=== PATIENT | male | born 1965 | race Caucasian/White ===

== ENCOUNTER 2017-06-13 14:52 | Emergency (ER) | payer OTHER ==
[2017-06-13 15:00] VITALS: BP 125/81; PULSE 113; TEMP 98.9; BMI 34.7
--- NOTE | 2017-06-13 15:00 | PDOC ---
Rapid Medical Evaluation Time Seen by Provider: 06/13/17 14:57 Medical Evaluation: Allergies Allergy/AdvReac Type Severity Reaction Status Date / Time No Known Allergies Allergy Verified 12/01/13 16:24 06/13/17 14:57 I have performed a brief in-person evaluation of this patient. The patient presents with a chief complaint of: went to PMD for cold/cough/ weakness, sent to ED by PMD Keely for glucose 400s Pertinent physical exam findings: well appearing, tachy 113 I have ordered the following: labs, ekg The patient will proceed to the ED for further evaluation. Discharge Disposition - Diagnosis Elevated blood sugar - Referrals Referrals: Levi Chapman MD [Primary Care Provider] - - Patient Instructions - Post Discharge Activity
[2017-06-13 15:37] LABS: BASO % 0.5 % (0-2.0); EOS % 0.1 % (0-4.5); HEMATOCRIT 46.8 % (35.4-49); HEMOGLOBIN 15.8 GM/dL (11.7-16.9); LYMPH % 22.8 % (8-40); MCH 29.5 pg (25.7-33.7); MCHC 33.7 g/dl (32.0-35.9); MEAN CELL VOLUME 87.4 fl (80-96); MEAN PLT VOLUME 8.4 fl (7.5-11.1); MONO % 10.7 % (3.8-10.2); NEUT % 65.9 % (42.8-82.8); PLATELET COUNT 207 K/MM3 (134-434); RBC 5.35 M/mm3 (4.00-5.60); RDW 13.1 % (11.9-15.9); WHITE BLOOD COUNT 6.4 K/mm3 (4.0-10.0)
[2017-06-13 15:54] LABS: ALBUMIN 3.4 g/dl (3.4-5.0); ANION GAP 8 (8-16); BILIRUBIN,TOTAL 0.4 mg/dL (0.2-1.0); BLOOD UREA NITROGEN 19 mg/dL (7-18); CALCIUM 8.8 mg/dL (8.5-10.1); CHLORIDE 100 mmol/L (98-107); CO2 28 mmol/L (21-32); CREATININE 1.1 mg/dL (0.7-1.3); POTASSIUM 4.6 mmol/L (3.5-5.1); SGOT/AST 13 U/L (15-37); SGPT/ALT 22 U/L (12-78); SODIUM 136 mmol/L (136-145); TOT PROT 6.8 g/dl (6.4-8.2)
[2017-06-13 15:55] LABS: ALK PHOS 119 U/L (45-117)
[2017-06-13 15:57] LABS: GLUCOSE,RANDOM 392 mg/dL (74-106)
[2017-06-13] MEDS ORDERED: SODIUM CHLORIDE 0.9% 1000 ML INFUS.BAG IV ONE ×2 (16:06→16:07)
[2017-06-13] MEDS ORDERED: ALBUTEROL SO4 2.5/IPRATROPIUM 0.5 INH SOL 3 ML VIAL.NEB. NEB ONE (16:06)
--- NOTE | 2017-06-13 16:10 | PDOC ---
History of Present Illness - General History Source: Patient Exam Limitations: No Limitations - History of Present Illness Initial Comments: 06/13/17 19:03 Patient is a 51 year old with a significant past medical history of Diabetes, who presents to the ED with complaints of high blood sugar. Patient reports being non compliant with medication due to unemployment and lack of medical insurance. He reports recently going back on Metformin and Glipizide medication for diabetes. Patient state he went to see his PCP this afternoon and was referred to the ED due to having blood sugar levels of 400. He reports experiencing intermittent productive cough, runny nose. Patient reports experiencing general weakness as well as SOB. Denies chest pain. Denies nausea, vomiting. Denies fevers, chills. Denies contact with sick individuals, out of state travelling. Denies any other symptoms. Allergies: None Social history: No smoking. No alcohol. No illicit drugs. Surgical history: Right torn rotator cuff surgery. Broken elbow. PMD: Dr. Chapman <Yovani Knox - Last Filed: 06/13/17 19:03> <Hue Newman - Last Filed: 06/13/17 19:12> - General Chief Complaint: Blood Sugar Problem Stated Complaint: SENT BY PCP/HIGH BLOOD SUGAR Time Seen by Provider: 06/13/17 14:57 Past History <Yovani Knox - Last Filed: 06/13/17 19:03> - Past Medical History COPD: No Diabetes: Yes - Suicide/Smoking/Psychosocial Hx Smoking Status: No Smoking History: Never smoked Number of Cigarettes Smoked Daily: 0 Hx Alcohol Use: No Drug/Substance Use Hx: No Substance Use Type: None <Hue Newman - Last Filed: 06/13/17 19:12> - Past Medical History Allergies/Adverse Reactions: Allergies Allergy/AdvReac Type Severity Reaction Status Date / Time No Known Allergies Allergy Verified 06/13/17 15:00 Home Medications: Ambulatory Orders Metformin HCl [Glucophage] 1,000 mg PO BID 12/01/13 Albuterol Sulfate Inhaler - [Ventolin HFA Inhaler -] 1 - 2 inh PO Q4H PRN #1 inhaler 06/13/17 Glipizide 10 mg PO BID 06/13/17 Glipizide 10 mg PO BID #28 tablet 06/13/17 Inhaler, Assist Devices [Space Chamber Plus] 1 each MC QID PRN #1 spacer Metformin HCl [Glucophage] 1,000 mg PO BID #14 tablet 06/13/17 Review of Systems - Review of Systems Able to Perform ROS?: Yes Comments:: 06/13/17 19:03 GENERAL/CONSTITUTIONAL: No fever or chills. No weakness. HEAD, EYES, EARS, NOSE AND THROAT: +Runny nose. No change in vision. No ear pain or discharge. No sore throat. GASTROINTESTINAL: No nausea, vomiting, diarrhea or constipation. GENITOURINARY: No dysuria, frequency, or change in urination. CARDIOVASCULAR: +SOB No chest pain RESPIRATORY: +Cough No wheezing, or hemoptysis. MUSCULOSKELETAL: No joint or muscle swelling or pain. No neck or back pain. SKIN: No rash NEUROLOGIC: No headache, vertigo, loss of consciousness, or change in strength/ sensation. ENDOCRINE: No increased thirst. No abnormal weight change. HEMATOLOGIC/LYMPHATIC: No anemia, easy bleeding, or history of blood clots. ALLERGIC/IMMUNOLOGIC: No hives or skin allergy. All Other Systems: Reviewed and Negative <Yovani Knox - Last Filed: 06/13/17 19:03> *Physical Exam - Vital Signs Last Vital Signs Temp Pulse Resp BP Pulse Ox 98.9 F 113 H 20 125/81 97 06/13/17 14:57 06/13/17 14:57 06/13/17 14:57 06/13/17 14:57 06/13/17 14:57 - Physical Exam Comments: 06/13/17 19:03 GENERAL: Awake, alert, and fully oriented, in no acute distress HEAD: No signs of trauma EYES: PERRLA, EOMI, sclera anicteric, conjunctiva clear ENT: +Nares boggy. Auricles normal inspection, hearing grossly normal, nares patent, oropharynx clear without exudates. Moist mucosa NECK: Normal ROM, supple, no lymphadenopathy, JVD, or masses LUNGS: +Bronchial spastic cough. Breath sounds equal, clear to auscultation bilaterally. No wheezes, and no crackles HEART: +Tachycardic. Regular rate and rhythm, normal S1 and S2, no murmurs, rubs or gallops ABDOMEN: Soft, nontender, normoactive bowel sounds. No guarding, no rebound. No masses EXTREMITIES: Normal range of motion, no edema. No clubbing or cyanosis. No cords, erythema, or tenderness NEUROLOGICAL: Cranial nerves II through XII grossly intact. Normal speech, normal gait SKIN: Warm, Dry, normal turgor, no rashes or lesions noted. <Yovani Knox - Last Filed: 06/13/17 19:03> - Vital Signs Last Vital Signs Temp Pulse Resp BP Pulse Ox 98.9 F 113 H 20 125/81 97 06/13/17 14:57 06/13/17 14:57 06/13/17 14:57 06/13/17 14:57 06/13/17 14:57 <Hue Newman - Last Filed: 06/13/17 19:12> Heart Score/ECG Review - ECG Intrepretation Comment:: 06/13/17 16:39 sinus tach at 105, nl axis, nl interval, no acute st/t wave findings <Hue Newman - Last Filed: 06/13/17 19:12> ED Treatment Course - LABORATORY CBC & Chemistry Diagram: 06/13/17 15:10 06/13/17 15:10 - ADDITIONAL ORDERS Additional order review: Laboratory Results 06/13/17 06/13/17 16:53 15:10 Sodium 136 Potassium 4.6 Chloride 100 Carbon Dioxide 28 Anion Gap 8 BUN 19 H Creatinine 1.1 Creat Clearance w eGFR > 60 Random Glucose 392 H* Calcium 8.8 Total Bilirubin 0.4 AST 13 L ALT 22 Alkaline Phosphatase 119 H Total Protein 6.8 Albumin 3.4 Urine Color Ltyellow Urine Appearance Clear Urine pH 5.0 Ur Specific [place] 1.038 H Urine Protein 1+ H Urine Glucose (UA) 3+ H Urine Ketones Trace H Urine Blood 1+ H Urine Nitrite Negative Urine Bilirubin Negative Urine Urobilinogen Negative Ur Leukocyte Esterase Negative Urine WBC (Auto) <1 Urine RBC (Auto) 1 Urine Mucus Rare 06/13/17 15:10 RBC 5.35 MCV 87.4 MCHC 33.7 RDW 13.1 MPV 8.4 Neutrophils % 65.9 Lymphocytes % 22.8 Monocytes % 10.7 H Eosinophils % 0.1 Basophils % 0.5 - Medications Given in the ED: ED Medications Discontinued Medications Generic Name Dose Route Start Last Admin Trade Name Freq PRN Reason Stop Dose Admin Albuterol/Ipratropium 1 amp 06/13/17 16:06 06/13/17 17:19 Duoneb - NEB 06/13/17 16:07 1 amp ONCE ONE Administration Sodium Chloride 1,000 ml 06/13/17 16:06 06/13/17 16:36 Normal Saline - IV 06/13/17 16:07 1,000 ml ONCE ONE Administration Sodium Chloride 1,000 ml 06/13/17 16:07 06/13/17 16:36 Normal Saline - IV 06/13/17 16:08 1,000 ml ONCE ONE Administration <Yovani Knox - Last Filed: 06/13/17 19:03> - LABORATORY CBC & Chemistry Diagram: 06/13/17 15:10 06/13/17 15:10 - ADDITIONAL ORDERS Additional order review: Laboratory Results 06/13/17 15:10 Sodium 136 Potassium 4.6 Chloride 100 Carbon Dioxide 28 Anion Gap 8 BUN 19 H Creatinine 1.1 Creat Clearance w eGFR > 60 Random Glucose 392 H* Calcium 8.8 Total Bilirubin 0.4 AST 13 L ALT 22 Alkaline Phosphatase 119 H Total Protein 6.8 Albumin 3.4 <Hue Newman - Last Filed: 06/13/17 19:12> Medical Decision Making - Medical Decision Making 06/13/17 16:07 a/p: 51yo male with cough/rhinorrhea and elevated bg -noncompliant with meds x 6 months -nontoxic in appearance -suspect viral URI with bronchospasm -will obtain labs, ekg, cxr -ivf hydration -has referral for endocrinology as outpt -now taking metformin and glipizide 06/13/17 16:08 glucose 392 - will give ivf hydration, nongapped 06/13/17 19:05 pt feeling much better no longer feeling weak lungs cta breathing more easily pt glucose now in 200s will d/c to home with albuterol pump and metformin/glipizide has appt with pmd next week and is arranging to see endocrinology as outpt discussed dietary changes to help control glucose <Hue Newman - Last Filed: 06/13/17 19:12> *DC/Admit/Observation/Transfer - Attestations Scribe Attestion: 06/13/17 19:04 Documentation prepared by Yovani Knox, acting as ophthalmic medical technician for Hue Newman DO, MD/. <Yovani Knox - Last Filed: 06/13/17 19:03> - Discharge Dispostion Admit: No - Attestations Physician Attestion: 06/13/17 19:11 I, Dr. Hue Newman DO, attest that this document has been prepared under my direction and personally reviewed by me in its entirety. I further attest, that it accurately reflects all work, treatment, procedures and medical decision -making performed by me. <Hue Newman - Last Filed: 06/13/17 19:12> Diagnosis at time of Disposition: Elevated blood sugar - Discharge Dispostion Disposition: HOME Condition at time of disposition: Stable - Prescriptions Prescriptions: Albuterol Sulfate Inhaler - [Ventolin HFA Inhaler -] 1 - 2 inh PO Q4H PRN #1 inhaler PRN Reason: Wheezing Glipizide 10 mg PO BID #28 tablet Inhaler, Assist Devices [Space Chamber Plus] 1 each MC QID PRN #1 spacer PRN Reason: Wheezing Metformin HCl [Glucophage] 1,000 mg PO BID #14 tablet - Referrals Referrals: Levi Chapman MD [Primary Care Provider] - Chance Anaya MD [Staff Physician] - - Patient Instructions Printed Discharge Instructions: DI for Hyperglycemia -- Adult Additional Instructions: Please drink plenty of fluids Please keep your appointment with your PMD for next week Please watch your sugar intake Please check your glucose at home with the glucometer Please take all of your meds as prescribed Please return to the ED with any further complaints. - Post Discharge Activity
[2017-06-13 17:28] LABS: URINE APPEARANCE CLEAR; URINE BILIRUBIN NEGATIVE (NEGATIVE); URINE BLOOD 1+ (NEGATIVE); URINE COLOR LTYELLOW; URINE GLUCOSE (UA) 3+ (NEGATIVE); URINE KETONE TRACE (NEGATIVE); URINE LEUK ESTERASE NEGATIVE (NEGATIVE); URINE NITRITE NEGATIVE (NEGATIVE); URINE UROBILINOGEN NEGATIVE mg/dL (0.2-1.0)
[2017-06-13 17:31] LABS: URINE PROTEIN 1+ (NEGATIVE)
[2017-06-13 18:04] LABS: URINE MUCUS RARE
--- NOTE | 2017-06-14 09:11 | EKG ---
Test Reason : Blood Pressure : / mmHG Vent. Rate : 105 BPM Atrial Rate : 105 BPM P-R Int : 164 ms QRS Dur : 082 ms QT Int : 316 ms P-R-T Axes : 062 017 040 degrees QTc Int : 417 ms SINUS TACHYCARDIA OTHERWISE NORMAL ECG NO PREVIOUS ECGS AVAILABLE Confirmed by BARBARA DE DIOS MD ([id number]) on 06/14/2017 9:10:48 AM Referred By: Confirmed By:BARBARA DE DIOS MD
== END 2017-06-13 19:22 | disposition home or self-care (01) ==
LOC: JER 14:52
PROC: 3E0337Z Introduction of Electrolytic and Water Balance Substance into Peripheral Vein, Percutaneous Approach (ICD-10-PCS; principal; 2017-06-13)
PROC: 3E0F7GC Introduction of Other Therapeutic Substance into Respiratory Tract, Via Natural or Artificial Opening (ICD-10-PCS; 2017-06-13)
DX: R73.9 Hyperglycemia, unspecified (principal)
CPT/HCPCS: 36415; 71046-TC; 80053; 81003; 81015; 82962; 85025; 93005; 93010; 99283-25

== ENCOUNTER 2020-03-01 10:48 | Inpatient (IN) | payer OTHER ==
--- NOTE | 2020-03-01 11:13 | PDOC ---
History of Present Illness - General Chief Complaint: Wound Stated Complaint: WOUND Time Seen by Provider: 03/01/20 11:13 - History of Present Illness Initial Comments: 54 YOM h/o diabetes presents with infected toe. 3rd toe on left foot, initially red on , thought stubbed toe, redness expanded beyond toe in following days, saw senior network security engineer who gave topical cream, sunday became black and numb to touch, came into today given acute change. Denies pain, confirms some chills over past week. Denies fever, night sweats, CP, SOB, N/V/D. Constitutional: No Weight Change, No Fever, No Chills, No Night Sweats, No Fatigue, No Malaise ENT/Mouth: No Hearing Changes, No Ear Pain, No Nasal Congestion, No Sinus Pain, No Hoarseness, No sore throat, No Rhinorrhea, No Swallowing Difficulty Eyes: No Eye Pain, No Swelling, No Redness, No Foreign Body, No Discharge, No Vision Changes Cardiovascular: No Chest Pain, No SOB, No PND, No Dyspnea on Exertion, No Orthopnea, No Claudication, No Edema, No Palpitations Respiratory: No Cough, No Sputum, No Wheezing, No Smoke Exposure, No Dyspnea Gastrointestinal: No Nausea, No Vomiting, No Diarrhea, No Constipation, No Pain, No Heartburn, No Anorexia, No Dysphagia, No Hematochezia, No Melena, No Flatulence, No Jaundice Genitourinary: No Dysmenorrhea, No DUB, No Dyspareunia, No Dysuria, No Urinary Frequency, No Hematuria, No Urinary Incontinence, No Urgency, No Flank Pain, No Urinary Flow Changes, No Hesitancy Musculoskeletal: No Arthralgias, No Myalgias, No Joint Swelling, No Joint Stiffness, No Back Pain, No Neck Pain, No Injury History Skin: No Skin Lesions, No Pruritis, No Hair Changes, No Breast/Skin Changes, No Nipple Discharge Neuro: No Weakness, No Numbness, No Paresthesias, No Loss of Consciousness, No Syncope, No Dizziness, No Headache, No Coordination Changes, No Recent Falls Psych: No Anxiety/Panic, No Depression, No Insomnia, No Personality Changes, No Delusions, No Rumination, No SI/HI/AH/VH, No Social Issues, No Memory Changes, No Violence/Abuse Hx., No Eating Concerns Heme/Lymph: No Bruising, No Bleeding, No Transfusions History, No Lympha denopathy Endocrine: No Polyuria, No Polydipsia, No Temperature Intolerance Past History - Medical History Allergies/Adverse Reactions: Allergies Allergy/AdvReac Type Severity Reaction Status Date / Time No Known Allergies Allergy Verified 03/01/20 11:01 Home Medications: Ambulatory Orders metFORMIN HCL [Glucophage] 1,000 mg PO BID 12/01/13 Glipizide 5 mg PO BID 03/02/20 COPD: No Diabetes: Yes Other medical history: neuropathy - Immunization History Immunization Up to Date: No - Psycho-Social/Smoking History Smoking Status: No Smoking History: Never smoked Number of Cigarettes Smoked Daily: 0 - Substance Abuse Hx (Audit-C & DAST Scrn) How often the patient has a drink containing alcohol: Never Score: In Men: 4 or > Positive; In Women: 3 or > Positive: 0 Screen Result (Pos requires Nsg. Audit-10AR): Negative In the last yr the pt used illegal drug/Rx for NonMed reason: No Score: Yes response is considered Positive: 0 Screen Result (Positive result requires Nsg. DAST-10): Negative *Physical Exam - Vital Signs Last Vital Signs Temp Pulse Resp BP Pulse Ox 98.1 F 116 H 20 107/68 100 03/01/20 11:01 03/01/20 11:01 03/01/20 11:01 03/01/20 11:01 03/01/20 11:01 - Physical Exam General Appearance: Yes: Nourished, Appropriately Dressed HEENT: positive: EOMI, SANDRA, Normal ENT Inspection, Normal Voice, Symmetrical, TMs Normal, Pharynx Normal Neck: positive: Trachea midline, Normal Thyroid Respiratory/Chest: positive: Lungs Clear, Normal Breath Sounds Cardiovascular: positive: Regular Rhythm, Regular Rate, S1, S2 Gastrointestinal/Abdominal: positive: Normal Bowel Sounds, Flat, Soft Extremity: positive: Other (3rd digit on left foot is grossly black in color with surrounding erythema extending from base of 3rd toe to dorsum of left foot and anterior ankle/lower leg, no sensation in toe) ED Treatment Course - LABORATORY CBC & Chemistry Diagram: 03/03/20 07:20 03/03/20 07:20 Medical Decision Making - Medical Decision Making 54 YOM h/o diabetes with gangrenous toe on left foot - tachy to 116, vitals otherwise normal - exam shows black 3rd digit on left foot with erythema extending from base of toe up through dorsum of left foot to lower left leg, toe has no sensation - will do labs, imaging, and abx, consult vascular surgery and admit for gangrene + cellulitis with possible sepsis reassess: - labs remarkable for WBC 11.8 - spoke with dr chavez who suggested CTA aorta with BL LE runoff - PT admitted 03/01/20 12:42 03/01/20 13:12 03/03/20 17:48 Discharge - Discharge Information Problems reviewed: Yes Clinical Impression/Diagnosis: Gangrene - Follow up/Referral - Patient Discharge Instructions - Post Discharge Activity
[2020-03-01] MEDS ORDERED: SODIUM CHLORIDE 1,000 ML IV SCH ×2 (11:15→13:15)
[2020-03-01] MEDS ORDERED: MEROPENEM 1 GM in DEXTROSE 5%-WATER 100 ML IVPB ONE (11:29)
[2020-03-01] MEDS ORDERED: CLINDAMYCIN 900 MG PREMIX IVPB 900 MG/50 ML BAG IVPB ONE ×2 (11:30→11:54)
--- NOTE | 2020-03-01 11:43 | PDOC ---
Documentation entered by Salima Morris SCRIBE, acting as scribe for Nader Rausch MD. Nader Rausch MD: This documentation has been prepared by the Alexandra nguyen Xhesika, SCRIBE, under my direction and personally reviewed by me in its entirety. I confirm that the documentation accurately reflects all work, treatment, procedures, and medical decision making performed by me. Attending Attestation - Resident Resident Name: Warren Ferraro - ED Attending Attestation I have performed the following: I have examined & evaluated the patient, The case was reviewed & discussed with the resident, I agree w/resident's findings & plan, Exceptions are as noted - HPI HPI: 03/01/20 11:15 Patient is a 54 year old with a significant past medical history of Diabetes and Neuropathy who presents to the ED with L foot third digit wound. Pt states he was seen by his campaign advisor on Sunday for L foot third digit lateral ulcer a/w erythema and was started on cipro/clindamycin. Pt states his symptoms have progressively worsened, went in for a follow up today for acute changes, and was advised to come to the ED for further evaluation. The patient denies chest pain, shortness of breath, headache and dizziness. Denies fever, chills, cough, nausea, vomiting, diarrhea and constipation. Denies dysuria, frequency, urgency and hematuria. Allergies: NKDA Surgical history: Right torn rotator cuff surgery. - Physicial Exam PE: 03/01/20 11:46 See resident exam - Medical Decision Making 03/01/20 11:46 54 M with infected toe ulcer. - Labs - C/s Shakir Cardoso Stepanian - Admit Discharge - Discharge Information Problems reviewed: Yes Clinical Impression/Diagnosis: Gangrene Condition: Improved Disposition: HOME - Follow up/Referral - Patient Discharge Instructions - Post Discharge Activity
[2020-03-01] MEDS ORDERED: MEROPENEM 1 GM VIAL (RESTRICTED TO ID) IVPB ONE (11:53)
[2020-03-01 11:55] LABS: BASO % 0.6 % (0-2.0); EOS % 0.3 % (0-4.5); HEMATOCRIT 38.5 % (35.4-49); HEMOGLOBIN 12.7 GM/dL (11.7-16.9); LYMPH % 9.8 % (8-40); MCH 28.6 pg (25.7-33.7); MEAN CELL VOLUME 86.7 fl (80-96); MEAN PLT VOLUME 7.1 fl (7.5-11.1); MONO % 9.4 % (3.8-10.2); NEUT % 79.9 % (42.8-82.8); PLATELET COUNT 303 K/MM3 (134-434); RBC 4.44 M/mm3 (4.00-5.60); RDW 12.8 % (11.9-15.9); WHITE BLOOD COUNT 11.8 K/mm3 (4.0-10.0)
[2020-03-01 12:08] LABS: INR 1.18 (0.83-1.09); PROTHROMBIN TIME (PATIENT) 13.9 SEC (9.7-13.0)
--- NOTE | 2020-03-01 12:12 | CONSULT ---
Consult Consult Specialty:: Podiatry Reason for Consultation:: Gangarene 3rd toe left with ascending cellulitis - History of Present Illness History of Present Illness: States had an ingrown nail 3 weeks ago. Got worse went to [facility] Sunday put on po abx. Returned today and had gangarene and was called by Dr. Abarca to refer the patient to me. - Alcohol/Substance Use Hx Alcohol Use: No - Smoking History Smoking history: Never smoked Aproximately how many cigarettes per day: 0 Home Medications - Allergies Allergies/Adverse Reactions: Allergies Allergy/AdvReac Type Severity Reaction Status Date / Time No Known Allergies Allergy Verified 03/01/20 11:01 - Home Medications Home Medications: Ambulatory Orders metFORMIN HCL [Glucophage] 1,000 mg PO BID 12/01/13 Glipizide 10 mg PO BID #28 tablet 06/13/17 Physical Exam Vital Signs: Vital Signs Temperature 98.1 F 03/01/20 11:01 Pulse Rate 116 H 03/01/20 11:01 Respiratory Rate 20 03/01/20 11:01 Blood Pressure 107/68 03/01/20 11:01 O2 Sat by Pulse Oximetry (%) 100 03/01/20 11:01 Wound/Incision: Yes: Other (+gangarene 3rd toe left, +cellulitis to midfoot,) Labs: CBC, BMP 03/01/20 11:45 Imaging - Results X-ray: Image Reviewed Assessment/Plan gangarene cellulitis Vascular and ID consults ordered. Discussed with pt that he will be most likely need an amputation of 3rd toe left once cellulitis under control. Will follow. MRI ordered. Rest as per team. Maximize for OR.
[2020-03-01 12:32] LABS: ALBUMIN 2.3 g/dl (3.4-5.0); BILIRUBIN,TOTAL 0.7 mg/dL (0.2-1); BLOOD UREA NITROGEN 16.3 mg/dL (7-18); CALCIUM 8.2 mg/dL (8.5-10.1); CREATININE 1.2 mg/dL (0.55-1.3); POTASSIUM 4.4 mmol/L (3.5-5.1); TOT PROT 5.6 g/dl (6.4-8.2)
--- NOTE | 2020-03-01 12:40 | CON.ID ---
Consult Consult Specialty:: infectious diseases Referred by:: hospitalist Reason for Consultation:: cellulitis of the foot and gangrene of the toe - History of Present Illness Chief Complaint: black color of the toe and swelling and pain in the legs History of Present Illness: 54 y/o with a history of DM who presents from a ash collector office for third toe pain. Patients toe was seen to be red and outpatient he was given ciprofloxacin and clindamyicin. Patient notes his toe was red on Sunday and he had some pain, the pain eventually went away and then someone at his hose noted it had changed color. he went to the ash collector who sent him here. Patient states the toe is now numb. No other complaints, denies fever, chills, nausea, vomiting, chest pain or shortness of breath. says now he feels better - History Source History Provided By: Patient Limitations to Obtaining History: No Limitations - Alcohol/Substance Use Hx Alcohol Use: No - Smoking History Smoking history: Never smoked Aproximately how many cigarettes per day: 0 Home Medications - Allergies Allergies/Adverse Reactions: Allergies Allergy/AdvReac Type Severity Reaction Status Date / Time No Known Allergies Allergy Verified 03/01/20 11:01 - Home Medications Home Medications: Ambulatory Orders metFORMIN HCL [Glucophage] 1,000 mg PO BID 12/01/13 Glipizide 5 mg PO BID 03/02/20 Review of Systems - Review of Systems Constitutional: reports: No Symptoms Eyes: reports: No Symptoms HENT: reports: No Symptoms Neck: reports: No Symptoms Cardiovascular: reports: No Symptoms Respiratory: reports: No Symptoms Gastrointestinal: reports: No Symptoms, Vomiting Blood Musculoskeletal: reports: Other Integumentary: reports: Erythema, Other (black color of the toe) Neurological: reports: No Symptoms Endocrine: reports: No Symptoms Hematology/Lymphatic: reports: No Symptoms Psychiatric: reports: No Symptoms Physical Exam Vital Signs: Vital Signs Temperature 98.1 F 03/01/20 11:01 Pulse Rate 116 H 03/01/20 11:01 Respiratory Rate 03/01/20 11:01 Blood Pressure 107/68 03/01/20 11:01 O2 Sat by Pulse Oximetry (%) 100 03/01/20 11:01 Constitutional: Yes: Well Nourished, Calm, Mild Distress Eyes: Yes: Conjunctiva Clear HENT: Yes: Atraumatic, Normocephalic Neck: Yes: Supple, Trachea Midline Cardiovascular: Yes: Regular Rate and Rhythm Respiratory: Yes: Regular, CTA Bilaterally Gastrointestinal: Yes: Normal Bowel Sounds, Soft Musculoskeletal: Yes: WNL Extremities: Yes: Erythema (of the foot), Other (gangerne of the toe) Integumentary: Yes: Erythema Wound/Incision: Yes: Other Neurological: Yes: Alert, Oriented Psychiatric: Yes: Alert, Oriented Labs: CBC, BMP 03/01/20 11:45 03/01/20 11:45 Imaging - Results Chest X-ray: Report Reviewed, Image Reviewed X-ray: Report Reviewed, Image Reviewed Assessment/Plan 54 M L foot gangrene Uncontrolled T2Dm with hyperglycemia HTN HLD Active smoker plan will start on zosyn and clinda patient has gangrene will need amputation should get mri of the foot no gas noted rest as per the team
[2020-03-01] MEDS ORDERED: ACETAMINOPHEN 325 MG TABLET (FP) PO PRN (13:14)
--- NOTE | 2020-03-01 13:30 | HP ---
CHIEF COMPLAINT: left 3rd toe pain PCP: Dr. Richey HISTORY OF PRESENT ILLNESS: Patient is a 54 y/o with a history of DM who presents from a poem writer office for third toe pain. Patients toe was seen to be red and outpatient he was given ciprofloxacin and clindamyicin. Patient notes his toe was red on Sunday and he had some pain, the pain eventually went away and then someone at his hose noted it had changed color. he went to the poem writer who sent him here. Patient states the toe is now numb. No other complaints, denies fever, chills, nausea, vomiting, chest pain or shortness of breath. ER course was notable for: (1) (2) (3) Recent Travel: PAST MEDICAL HISTORY: DM PAST SURGICAL HISTORY: R arm lac at age 7 Social History: Smoking: active Alcohol: denies Drugs: denies Allergies No Known Allergies Allergy (Verified 03/01/20 11:01) HOME MEDICATIONS: Home Medications Medication Instructions Recorded metFORMIN HCL [Glucophage] 1,000 mg PO BID 12/01/13 Glipizide 10 mg PO BID #28 tablet 06/13/17 REVIEW OF SYSTEMS CONSTITUTIONAL: Absent: fever, chills, diaphoresis, generalized weakness, malaise, loss of appetite, weight change HEENT: Absent: rhinorrhea, nasal congestion, throat pain, throat swelling, difficulty swallowing, mouth swelling, ear pain, eye pain, visual changes CARDIOVASCULAR: Absent: chest pain, syncope, palpitations, irregular heart rate, lightheadedness, peripheral edema RESPIRATORY: Absent: cough, shortness of breath, dyspnea with exertion, orthopnea, wheezing, stridor, hemoptysis GASTROINTESTINAL: Absent: abdominal pain, abdominal distension, nausea, vomiting, diarrhea, constipation, melena, hematochezia GENITOURINARY: Absent: dysuria, frequency, urgency, hesitancy, hematuria, flank pain, genital pain MUSCULOSKELETAL: toe pain Absent: myalgia, arthralgia, joint swelling, back pain, neck pain SKIN: Absent: rash, itching, pallor HEMATOLOGIC/IMMUNOLOGIC: Absent: easy bleeding, easy bruising, lymphadenopathy, frequent infections ENDOCRINE: Absent: unexplained weight gain, unexplained weight loss, heat intolerance, cold intolerance NEUROLOGIC: Absent: headache, focal weakness or paresthesias, dizziness, unsteady gait, seizure, mental status changes, bladder or bowel incontinence PSYCHIATRIC: Absent: anxiety, depression, suicidal or homicidal ideation, hallucinations. PHYSICAL EXAMINATION Vital Signs - 24 hr 03/01/20 11:01 Temperature 98.1 F Pulse Rate 116 H Respiratory 20 Rate Blood Pressure 107/68 O2 Sat by Pulse 100 Oximetry (%) GENERAL: Awake, alert, and fully oriented, in no acute distress. HEAD: Normal with no signs of trauma. EYES: Pupils equal, round and reactive to light, extraocular movements intact EARS, NOSE, THROAT: Moist mucous membranes. LUNGS: Breath sounds equal, clear to auscultation bilaterally. No wheezes, and no crackles. No accessory muscle use. HEART: Regular rate and rhythm, normal S1 and S2 without murmur, rub or gallop. ABDOMEN: Soft, nontender, not distended, normoactive bowel sounds, LOWER EXTREMITIES: 2+ pulses, warm, well-perfused. left foot 3rd toe completely black no sensation, pulses strong SKIN: Warm, dry, normal turgor, no rashes or lesions noted, normal capillary refill. CBC, BMP 03/01/20 11:45 03/01/20 11:45 ASSESSMENT/PLAN: Patient is a 54 y/o with a history of DM who is admitted for dry gangrene of left third toe. #dry gangrene of left third toe 2/2 to DM - ID consulted, will continue Vancomycin and Meropenem - f/u A1C, if BP tolerates advise starting patient on ACEi - continue SS, started levemir 10 bid for better control - f/u A1C - f/u podiatry for possible amputation - f/u MRI of lower extremity - foot xray: no evidence of osteo #DVT ppx - Lovenox 40 sq daily FEN - hyponatremia 2/2 to hyperglycemia, corrected Na; 136 - diabetic diet Dispo: monitor on med/surg Discuss with podiatry for surgical options and if surgery is a plan stop AC and make patient NPO Family Medical History Family History: As Documented Visit type - Emergency Visit Emergency Visit: Yes ED Registration Date: 03/01/20 Care time: The patient presented to the Emergency Department on the above date and was hospitalized for further evaluation of their emergent condition. - New Patient This patient is new to me today: Yes Date on this admission: 03/02/20 - Critical Care Critical Care patient: No ATTENDING PHYSICIAN STATEMENT I saw and evaluated the patient. I reviewed the resident's note and discussed the case with the resident. I agree with the resident's findings and plan as documented. SUBJECTIVE: OBJECTIVE: ASSESSMENT AND PLAN:
--- NOTE | 2020-03-01 14:01 | EKG ---
Test Reason : Blood Pressure : / mmHG Vent. Rate : 105 BPM Atrial Rate : 105 BPM P-R Int : 160 ms QRS Dur : 086 ms QT Int : 344 ms P-R-T Axes : 051 031 045 degrees QTc Int : 454 ms SINUS TACHYCARDIA SMALL LATERAL Q ABNORMAL ECG WHEN COMPARED WITH ECG OF 13-JUN-2017 16:26, NO SIGNIFICANT CHANGE WAS FOUND Confirmed by PASCALE BARRAZA MD ([id number]) on 03/01/2020 2:00:47 PM Referred By: Confirmed By:PASCALE BARRAZA MD
[2020-03-01] MEDS: INSULIN SLIDING SCALE (NOVOLOG) 1 VIAL SQ SCH ×2 (14:59→16:59)
[2020-03-01] MEDS ORDERED: VANCOMYCIN 1 GM in D5W (PRE-DOCKED) 1,000 MG/250 ML IVPB ONE (16:33)
[2020-03-01] MEDS ORDERED: PT OWN MED DRAWER 7, Y5N ONE (17:32)
[2020-03-01] MEDS ORDERED: CLINDAMYCIN 600MG PREMIX IVPB 600 MG/50 ML BAG IVPB SCH ×2 (18:00)
[2020-03-01] MEDS ORDERED: INSULIN (NOVOLOG) ASPART 100 UNITS/ML 10ML VIAL ONE (20:48)
[2020-03-01] MEDS: INSULIN (LEVEMIR) 100 UNITS/ML UNITS SQ SCH (21:01)
[2020-03-01] MEDS ORDERED: INSULIN (LEVEMIR) 100 UNITS/ML UNITS SQ SCH (22:00)
--- NOTE | 2020-03-01 22:17 | PN ---
Teaching Attending Note Name of Resident: Karon Jimenez ATTENDING PHYSICIAN STATEMENT I saw and evaluated the patient. I reviewed the resident's note and discussed the case with the resident. I agree with the resident's findings and plan as documented. SUBJECTIVE: Patient seen and examined at bedside, admitted for L foot gangrene, uncontrolled T2DM, LE angio pending. VSS. OBJECTIVE: GENERAL: Awake, alert, and fully oriented, in no acute distress. HEAD: Normal with no signs of trauma. EYES: Pupils equal, round and reactive to light, extraocular movements intact EARS, NOSE, THROAT: Moist mucous membranes. LUNGS: Breath sounds equal, clear to auscultation bilaterally. No wheezes, and no crackles. No accessory muscle use. HEART: Regular rate and rhythm, normal S1 and S2 without murmur, rub or gallop. ABDOMEN: Soft, nontender, not distended, normoactive bowel sounds, LOWER EXTREMITIES: 2+ pulses, warm, well-perfused. left foot 3rd toe completely black no sensation, pulses strong SKIN: Warm, dry, normal turgor, no rashes or lesions noted, normal capillary refill. Vital Signs (72 hours) 03/01/20 03/01/20 03/01/20 11:01 13:52 16:34 Temperature 98.1 F 98.4 F 98.7 F Pulse Rate 116 H 93 H Pulse Rate [ 91 H Apical] Respiratory 20 18 20 Rate Blood Pressure 107/68 146/88 Blood Pressure 134/76 [Right Arm] O2 Sat by Pulse 100 98 94 L Oximetry (%) Laboratory Results - last 24 hr 03/01/20 03/01/20 03/01/20 11:45 11:45 11:45 WBC 11.8 H RBC 4.44 Hgb 12.7 Hct 38.5 D MCV 86.7 MCH 28.6 MCHC 33.0 RDW 12.8 Plt Count 303 D MPV 7.1 L D Absolute Neuts (auto) 9.4 H Neutrophils % 79.9 D Lymphocytes % 9.8 D Monocytes % 9.4 Eosinophils % 0.3 D Basophils % 0.6 Nucleated RBC % 0 PT with INR 13.90 H INR 1.18 H PTT (Actin FS) 30.0 Sodium Potassium Chloride Carbon Dioxide Anion Gap BUN Creatinine Est GFR (CKD-EPI)AfAm Est GFR (CKD-EPI)NonAf POC Glucometer Random Glucose Hemoglobin A1c % Calcium Total Bilirubin AST ALT Alkaline Phosphatase Total Protein Albumin Triglycerides Cholesterol Total LDL Cholesterol HDL Cholesterol Blood Type O POSITIVE Antibody Screen Negative 03/01/20 03/01/20 03/01/20 11:45 11:45 13:36 WBC RBC Hgb Hct MCV MCH MCHC RDW Plt Count MPV Absolute Neuts (auto) Neutrophils % Lymphocytes % Monocytes % Eosinophils % Basophils % Nucleated RBC % PT with INR INR PTT (Actin FS) Sodium 129 L Potassium 4.4 Chloride 96 L Carbon Dioxide 25 Anion Gap 8 BUN 16.3 Creatinine 1.2 Est GFR (CKD-EPI)AfAm 78.43 Est GFR (CKD-EPI)NonAf 67.67 POC Glucometer 500 Random Glucose 547 H* Hemoglobin A1c % 14.4 H Calcium 8.2 L Total Bilirubin 0.7 AST 10 L ALT 12 L Alkaline Phosphatase 129 H Total Protein 5.6 L Albumin 2.3 L Triglycerides 138 Cholesterol 188 Total LDL Cholesterol 137 H HDL Cholesterol 28 L Blood Type Antibody Screen 03/01/20 03/01/20 16:51 20:52 WBC RBC Hgb Hct MCV MCH MCHC RDW Plt Count MPV Absolute Neuts (auto) Neutrophils % Lymphocytes % Monocytes % Eosinophils % Basophils % Nucleated RBC % PT with INR INR PTT (Actin FS) Sodium Potassium Chloride Carbon Dioxide Anion Gap BUN Creatinine Est GFR (CKD-EPI)AfAm Est GFR (CKD-EPI)NonAf POC Glucometer 260 162 Random Glucose Hemoglobin A1c % Calcium Total Bilirubin AST ALT Alkaline Phosphatase Total Protein Albumin Triglycerides Cholesterol Total LDL Cholesterol HDL Cholesterol Blood Type Antibody Screen Home Medications Medication Instructions Recorded metFORMIN HCL [Glucophage] 1,000 mg PO BID 12/01/13 Glipizide 10 mg PO BID #28 tablet 06/13/17 Current Medications Generic Name Dose Route Start Last Admin Trade Name Freq PRN Reason Stop Dose Admin Acetaminophen 650 mg 03/01/20 13:14 Tylenol - PO Q4H PRN PAIN LEVEL 6-10 Enoxaparin Sodium 40 mg 03/02/20 10:00 Lovenox - SQ DAILY [facility] Sodium Chloride 1,000 mls @ 0 mls/hr 03/01/20 11:15 03/01/20 12:09 Normal Saline - IV 1,000 mls/hr ASDIR [facility] Administration Wide Open Sodium Chloride 1,000 mls @ 83 mls/hr 03/01/20 13:15 03/01/20 13:53 Normal Saline - IV 09/29/20 01:18 83 mls/hr ASDIR [facility] Administration Insulin Aspart 1 vial 03/01/20 16:30 03/01/20 16:59 Novolog Vial Sliding Scale - SQ 6 units TIDAC WILLIAM Administration Protocol Insulin Detemir 10 units 03/01/20 22:00 03/01/20 21:01 Levemir Vial SQ 10 units BID WILLIAM Administration ASSESSMENT AND PLAN: 54 M L foot gangrene Uncontrolled T2Dm with hyperglycemia HTN HLD Active smoker Plan: Aggressive BG management with Levemir BID and sliding scale insulin Meropenem and Vancomycin for abx d/t failed Zosyn at [facility] IV hydration w/ NS Surgery, Podiatry, ID following DVT ppx: Lovenox SC
[2020-03-02] MEDS: INSULIN SLIDING SCALE (NOVOLOG) 1 VIAL SQ SCH ×3 (06:23→16:24)
[2020-03-02 08:31] LABS: BASO % 0.4 % (0-2.0); EOS % 0.6 % (0-4.5); HEMATOCRIT 36.6 % (35.4-49); HEMOGLOBIN 12.6 GM/dL (11.7-16.9); LYMPH % 17.2 % (8-40); MCH 29.2 pg (25.7-33.7); MCHC 34.4 g/dl (32.0-35.9); MEAN CELL VOLUME 84.9 fl (80-96); MEAN PLT VOLUME 7.2 fl (7.5-11.1); MONO % 8.9 % (3.8-10.2); NEUT % 72.9 % (42.8-82.8); PLATELET COUNT 326 K/MM3 (134-434); RBC 4.31 M/mm3 (4.00-5.60); RDW 12.9 % (11.9-15.9); WHITE BLOOD COUNT 11.9 K/mm3 (4.0-10.0)
[2020-03-02 08:32] LABS: ALBUMIN 2.1 g/dl (3.4-5.0); BILIRUBIN,TOTAL 0.5 mg/dL (0.2-1); BLOOD UREA NITROGEN 12.5 mg/dL (7-18); CALCIUM 8.5 mg/dL (8.5-10.1); CREATININE 0.7 mg/dL (0.55-1.3); MAGNESIUM 2.1 mg/dL (1.8-2.4); PHOSPHOROUS 3.1 mg/dL (2.5-4.9); POTASSIUM 3.9 mmol/L (3.5-5.1); TOT PROT 5.4 g/dl (6.4-8.2)
[2020-03-02 08:48] LABS: URINE COLOR DK YELLOW
[2020-03-02 08:49] LABS: URINE APPEARANCE CLEAR; URINE BILIRUBIN NEGATIVE (NEGATIVE); URINE KETONE TRACE (NEGATIVE)
[2020-03-02 08:52] LABS: URINE GLUCOSE (UA) 3+ (NEGATIVE); URINE PROTEIN 3+ (NEGATIVE)
[2020-03-02 08:53] LABS: EPI CELLS 8.3 /uL (0-25.1); HYALINE CASTS 0.38 /uL (0-3.1); URINE BACTERIA 18.1 /uL (0-1359); URINE LEUK ESTERASE NEGATIVE (NEGATIVE); URINE NITRITE NEGATIVE (NEGATIVE); URINE RBC 33.1 /uL (0-23.9); URINE WBC 12.2 /uL (0-25.8)
[2020-03-02] MEDS ORDERED: INSULIN (NOVOLOG) ASPART 100 UNITS/ML 10ML VIAL ONE (09:26)
--- NOTE | 2020-03-02 09:38 | PN ---
Progress Note, Physician Chief Complaint: FUV left foot gangarene and cellulitis left foot. - Current Medication List Current Medications: Active Medications Acetaminophen (Tylenol -) 650 mg PO Q4H PRN PRN Reason: PAIN LEVEL 6-10 Enoxaparin Sodium (Lovenox -) 40 mg SQ DAILY [facility] Sodium Chloride (Normal Saline -) 1,000 mls @ 0 mls/hr IV ASDIR [facility] Last Admin: 03/01/20 12:09 Dose: 1,000 mls/hr Documented by: Insulin Aspart (Novolog Vial Sliding Scale -) 1 vial SQ TIDAC [facility]; Protocol Last Admin: 03/02/20 06:23 Dose: Not Given Documented by: Insulin Detemir (Levemir Vial) 10 units SQ BID [facility] Last Admin: 03/01/20 21:01 Dose: 10 units Documented by: - Objective Vital Signs: Vital Signs Temperature 98.8 F 03/02/20 08:54 Pulse Rate 101 H 03/02/20 08:54 Respiratory Rate 18 03/02/20 08:54 Blood Pressure 107/58 L 03/02/20 08:54 O2 Sat by Pulse Oximetry (%) 97 03/02/20 08:54 Wound/Incision: Yes: Other (+gangarene 3rd toe left foot, +cellulitis to midfoot-unimproved since yesterday, -drainage) Labs: CBC, BMP 03/02/20 07:26 03/02/20 07:26 INR, PTT INR 1.18 (0.83-1.09) H 03/01/20 11:45 Assessment/Plan gangarene cellulitis Vascular consult ordered. Awaiting recommendations. Verbal consent pt fully understands all risks benefits and alternatives and agrees to amputation of 3rd toe left foot. NPO after midnight. MRI reviewed. Rest as per team. Maximize for OR. INR now.
[2020-03-02] MEDS: INSULIN (LEVEMIR) 100 UNITS/ML UNITS SQ SCH ×2 (09:55→21:15)
[2020-03-02] MEDS ORDERED: ENOXAPARIN NA (PORCINE) 40 MG/0.4 ML DISP.SYRIN SQ SCH (10:00)
--- NOTE | 2020-03-02 10:00 | CONSULT ---
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 Pt reports stubb ed left toe was originally painful and red went to senior construction estimator and was prescribed ciprofloxacin and clindamycin. Pt states L foot third toe changed in color and reports feeling numb. associated symptoms of reported tactile fevers, chills at home. Denies: calf tenderness, changes in ambulation, CP, SOB, drainage or malodor, PMH: as per HPI PSH: arthoscopy R shoulder SH: denies Home Medications Medication Instructions Recorded metFORMIN HCL [Glucophage] 1,000 mg PO BID 12/01/13 Glipizide 10 mg PO BID #28 tablet 06/13/17 Allergies Allergy/AdvReac Type Severity Reaction Status Date / Time No Known Allergies Allergy Verified 03/01/20 11:01 ROS: all pertinent positives and negatives as per HPI. All other systems reviewed and negative. PHYSICAL EXAM: VSS NAD unlabored breathing on RA abd: soft, obese, ND, NT, no pulsatile masses RLE: warm, nonedematous, palpable DP/pop/fem, compartments soft/compressible/nontender LLE: warm, cellulitic changes to dorsum of foot with edema, erythema, dry gangrene of 3rd digit, no purulence, drainage noted, palpable DP/pop/fem, compartments soft/ compressible/nontender Vital Signs Temperature 98.8 F 03/02/20 08:54 Pulse Rate 101 H 03/02/20 08:54 Respiratory Rate 18 03/02/20 09:00 Blood Pressure 107/58 L 03/02/20 08:54 O2 Sat by Pulse Oximetry (%) 97 03/02/20 09:00 Lab Results WBC 11.9 K/mm3 (4.0-10.0) H 03/02/20 07:26 RBC 4.31 M/mm3 (4.00-5.60) 03/02/20 07:26 Hgb 12.6 GM/dL (11.7-16.9) 03/02/20 07:26 Hct 36.6 % (35.4-49) 03/02/20 07:26 MCV 84.9 fl (80-96) 03/02/20 07:26 MCHC 34.4 g/dl (32.0-35.9) 03/02/20 07:26 RDW 12.9 % (11.9-15.9) 03/02/20 07:26 Plt Count 326 K/MM3 (134-434) 03/02/20 07:26 INR 1.18 (0.83-1.09) H 03/01/20 11:45 Sodium 135 mmol/L (136-145) L 03/02/20 07:26 Potassium 3.9 mmol/L (3.5-5.1) 03/02/20 07:26 Chloride 102 mmol/L (98-107) 03/02/20 07:26 Carbon Dioxide 27 mmol/L (21-32) 03/02/20 07:26 Anion Gap 7 MMOL/L (8-16) L 03/02/20 07:26 BUN 12.5 mg/dL (7-18) 03/02/20 07:26 Creatinine 0.7 mg/dL (0.55-1.3) 03/02/20 07:26 Random Glucose 113 mg/dL (74-106) H 03/02/20 07:26 Calcium 8.5 mg/dL (8.5-10.1) 03/02/20 07:26 Blood Type O POSITIVE 03/01/20 11:45 Antibody Screen Negative 03/01/20 11:45 Imaging: MRI Left foot Impression: Soft tissue thickening in the plantar aspect of the foot below the third digit proximal interphalangeal joint The soft tissue thickening extends from the skin to the fibrinous sheath of the flexor or tendon with no suspicious disruption of the tendon or underlying abscess collection no evidence of osteomyelitis L Foot X-ray: osseous structures are intact. No radiographic evidence of acute osteomyelitis. Scattered interphalangeal and first MTP joint degenerative changes are visualized. Vascular calcifications are identified CXR: Impression: No acute cardiopulmonary findings. A&P: 54yoM uncontrolled DM (A1c 14.1), HLD p/w with cellulitis and dry gangrene of L 3rd toe with palpable DP/pop/fem pulses. No osteomyelitis No acute vascular intervention warranted at this time Local wound care: betadine with dry dressing Abx as per ID Reccomend podiatry consult for L 3rd amputation f/u CTA final read, to be reviewed by Dr. Schilling control BG/FS appreciate hospitalist comanagement DVT ppx offload weight from L third toe please reconsult with questions d/w Dr. Schilling
--- NOTE | 2020-03-02 13:27 | PN ---
Teaching Attending Note Name of Resident: Vi Oneil ATTENDING PHYSICIAN STATEMENT I saw and evaluated the patient. I reviewed the resident's note and discussed the case with the resident. I agree with the resident's findings and plan as documented. SUBJECTIVE: pt seen and examined at beside OBJECTIVE: Last Vital Signs Temp Pulse Resp BP Pulse Ox 98.8 F 101 H 18 107/58 L 97 03/02/20 08:54 03/02/20 08:54 03/02/20 09:00 03/02/20 08:54 03/02/20 09:00 GENERAL: Awake, alert, and fully oriented, in no acute distress. HEAD: Normal with no signs of trauma. EYES: Pupils equal, round and reactive to light, sclera anicteric, conjunctiva clear. LUNGS: Breath sounds equal, clear to auscultation bilaterally. No wheezes, and no crackles. No accessory muscle use. HEART: Regular rate and rhythm, normal S1 and S2 ABDOMEN: Soft, nontender, not distended MUSCULOSKELETAL: Normal range of motion at all joints. No bony deformities or tenderness. No CVA tenderness. UPPER EXTREMITIES: 2+ pulses, warm, well-perfused. No cyanosis. No clubbing. No peripheral edema. LOWER EXTREMITIES: warm, well-perfused. No calf tenderness. No peripheral edema. Lt gangrenous 3rd toe with erythematous skin changes on dorsum, no swelling or tenderness, 2+ pulses NEUROLOGICAL: Cranial nerves II-XII intact. Normal speech. decreased sensation in foot CBCD WBC 11.9 K/mm3 (4.0-10.0) H 03/02/20 07:26 RBC 4.31 M/mm3 (4.00-5.60) 03/02/20 07:26 Hgb 12.6 GM/dL (11.7-16.9) 03/02/20 07:26 Hct 36.6 % (35.4-49) 03/02/20 07:26 MCV 84.9 fl (80-96) 03/02/20 07:26 MCHC 34.4 g/dl (32.0-35.9) 03/02/20 07:26 RDW 12.9 % (11.9-15.9) 03/02/20 07:26 Plt Count 326 K/MM3 (134-434) 03/02/20 07:26 MPV 7.2 fl (7.5-11.1) L 03/02/20 07:26 CMP Sodium 135 mmol/L (136-145) L 03/02/20 07:26 Potassium 3.9 mmol/L (3.5-5.1) 03/02/20 07:26 Chloride 102 mmol/L (98-107) 03/02/20 07:26 Carbon Dioxide 27 mmol/L (21-32) 03/02/20 07:26 Anion Gap 7 MMOL/L (8-16) L 03/02/20 07:26 BUN 12.5 mg/dL (7-18) 03/02/20 07:26 Creatinine 0.7 mg/dL (0.55-1.3) 03/02/20 07:26 Random Glucose 113 mg/dL (74-106) H 03/02/20 07:26 Calcium 8.5 mg/dL (8.5-10.1) 03/02/20 07:26 Total Bilirubin 0.5 mg/dL (0.2-1) 03/02/20 07:26 AST 12 U/L (15-37) L 03/02/20 07:26 ALT 11 U/L (13-61) L 03/02/20 07:26 Alkaline Phosphatase 114 U/L (45-117) 03/02/20 07:26 Total Protein 5.4 g/dl (6.4-8.2) L 03/02/20 07:26 Albumin 2.1 g/dl (3.4-5.0) L 03/02/20 07:26 Active Medications Acetaminophen (Tylenol -) 650 mg PO Q4H PRN PRN Reason: PAIN LEVEL 6-10 Enoxaparin Sodium (Lovenox -) 40 mg SQ DAILY [facility] Last Admin: 03/02/20 09:56 Dose: 40 mg Documented by: Sodium Chloride (Normal Saline -) 1,000 mls @ 0 mls/hr IV ASDIR [facility] Last Admin: 03/01/20 12:09 Dose: 1,000 mls/hr Documented by: Insulin Aspart (Novolog Vial Sliding Scale -) 1 vial SQ TIDAC [facility]; Protocol Last Admin: 03/02/20 10:45 Dose: 4 units Documented by: Insulin Detemir (Levemir Vial) 10 units SQ BID [facility] Last Admin: 03/02/20 09:55 Dose: 10 units Documented by: ASSESSMENT AND PLAN: 54 yo Man hx of uncontrolled DM (A1c 14.1) with neuropathy, and HLD who 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 # sepsis due to Lt 3rd toe gangrene and cellulitis leukocytosis, tachycardia, infection spot going for toe amputation in AM with podiatry Vascular consult appreciated, no intervention at this time MRI: Soft tissue thickening in the plantar aspect of the foot below the third digit proximal interphalangeal joint. The soft tissue Thickening extends from the skin to the fibrous sheath of the flexor tendon with no suspicious disruption of the tendon or underlying abscess collection. No evidence of osteomyelitis. CTA arota w/runoff: Conventional vascular anatomy with unremarkable patency, caliber, and contour. At least two-vessel runoff to the ankles visualized bilaterally with symmetric enhancement. No CT evidence of gangrene or osteomyelitis, correlate with concurrent MR findings. Right adrenal nodule measuring up to 2.6 cm most likely represents adenoma. 1.6 cm focus of low attenuation within the left hepatic lobe. Characterization is limited due to single arterial phase. Recommend three-phase contrast-enhanced abdomen CT with liver protocol for further investigation. Prominent bilateral ureters (L>>R) without evidence of obstructing calculus. ASA3, RCRI 2 (class III,moderate risk) Abx per ID Case discussed with ID Podiatry following DM HLD BPH DVT prophylaxis
[2020-03-02] MEDS ORDERED: MEROPENEM 1 GM VIAL (RESTRICTED TO ID) IVPB ONE (13:54)
[2020-03-02] MEDS ORDERED: DEXTROSE 5%-WATER 100 ML IVPB ONE (13:54)
--- NOTE | 2020-03-02 13:57 | PN ---
Progress Note, Physician History of Present Illness: stable no new issues - Current Medication List Current Medications: Active Medications Acetaminophen (Tylenol -) 650 mg PO Q4H PRN PRN Reason: PAIN LEVEL 6-10 Enoxaparin Sodium (Lovenox -) 40 mg SQ DAILY [facility] Last Admin: 03/02/20 09:56 Dose: 40 mg Documented by: Sodium Chloride (Normal Saline -) 1,000 mls @ 0 mls/hr IV ASDIR [facility] Last Admin: 03/01/20 12:09 Dose: 1,000 mls/hr Documented by: Meropenem 1 gm/ Dextrose 100 mls @ 200 mls/hr IVPB ONCE ONE Stop: 03/02/20 14:29 Insulin Aspart (Novolog Vial Sliding Scale -) 1 vial SQ TIDAC [facility]; Protocol Last Admin: 03/02/20 10:45 Dose: 4 units Documented by: Insulin Detemir (Levemir Vial) 10 units SQ BID [facility] Last Admin: 03/02/20 09:55 Dose: 10 units Documented by: - Objective Vital Signs: Vital Signs Temperature 99.1 F 03/02/20 13:25 Pulse Rate 104 H 03/02/20 13:25 Respiratory Rate 18 03/02/20 13:25 Blood Pressure 116/71 03/02/20 13:25 O2 Sat by Pulse Oximetry (%) 97 03/02/20 09:00 Constitutional: Yes: No Distress, Calm Cardiovascular: Yes: S1, S2 Respiratory: Yes: Regular, CTA Bilaterally Gastrointestinal: Yes: Normal Bowel Sounds, Soft Musculoskeletal: Yes: WNL Extremities: Yes: Other Wound/Incision: Yes: Other Neurological: Yes: Alert, Oriented Labs: CBC, BMP 03/02/20 07:26 03/02/20 07:26 INR, PTT INR 1.18 (0.83-1.09) H 03/01/20 11:45 Assessment/Plan 54 M L foot gangrene Uncontrolled T2Dm with hyperglycemia HTN HLD Active smoker plan zosyn clinda wound care needs amputation mri results noted
[2020-03-02] MEDS ORDERED: MEROPENEM 1 GM in DEXTROSE 5%-WATER 100 ML IVPB ONE (14:00)
--- NOTE | 2020-03-02 14:22 | PN ---
Physical Exam: SUBJECTIVE: Patient seen and examined. OBJECTIVE: Vital Signs Period Temp Pulse Resp BP Sys/Oliver Pulse Ox Last 24 Hr 98.7 F-99.3 F 89-104 18-20 107-149/58-88 94-97 GENERAL: The patient is awake, alert, and fully oriented, in no acute distress. HEAD: Normal with no signs of trauma. EYES: PERRL, extraocular movements intact, sclera anicteric, conjunctiva clear. No ptosis. ENT: Ears normal, nares patent, oropharynx clear without exudates, moist mucous membranes. NECK: Trachea midline, full range of motion, supple. LUNGS: Breath sounds equal, clear to auscultation bilaterally, no wheezes, no crackles, no accessory muscle use. HEART: Regular rate and rhythm, S1, S2 without murmur, rub or gallop. ABDOMEN: Soft, nontender, nondistended, normoactive bowel sounds, no guarding, no rebound, no hepatosplenomegaly, no masses. EXTREMITIES: 2+ pulses, warm, well-perfused. Left 3rd toe gangrenous, surrounding erythema onto dorsum of foot. No edema. NEUROLOGICAL: Cranial nerves II through XII grossly intact. Normal speech, gait not observed. PSYCH: Normal mood, normal affect. SKIN: Warm, dry, normal turgor, no rashes or lesions noted Laboratory Results - last 24 hr 03/01/20 03/01/20 03/01/20 10:25 11:45 11:45 WBC RBC Hgb Hct MCV MCH MCHC RDW Plt Count MPV Absolute Neuts (auto) Neutrophils % Lymphocytes % Monocytes % Eosinophils % Basophils % Nucleated RBC % ESR Sodium 129 L Potassium 4.4 Chloride 96 L Carbon Dioxide 25 Anion Gap 8 BUN 16.3 Creatinine 1.2 Est GFR (CKD-EPI)AfAm 78.43 Est GFR (CKD-EPI)NonAf 67.67 POC Glucometer Random Glucose 547 H* Hemoglobin A1c % 14.4 H Calcium 8.2 L Phosphorus Magnesium Total Bilirubin 0.7 AST 10 L ALT 12 L Alkaline Phosphatase 129 H C-Reactive Protein Total Protein 5.6 L Albumin 2.3 L Triglycerides 138 Cholesterol 188 Total LDL Cholesterol 137 H HDL Cholesterol 28 L Urine Color Dk yellow Urine Appearance Clear Urine pH 5.0 Ur Specific [place] > 1.035 H Urine Protein 3+ H Urine Glucose (UA) 3+ H Urine Ketones Trace H Urine Blood Trace Urine Nitrite Negative Urine Bilirubin Negative Urine Urobilinogen 1.0 Ur Leukocyte Esterase Negative Urine WBC (Auto) 12.2 Urine RBC (Auto) 33.1 Urine Casts (Auto) 0.38 U Epithel Cells (Auto) 8.3 Urine Bacteria (Auto) 18.1 COVID-19 (JOSHUA) 03/01/20 03/01/20 03/01/20 11:50 16:51 20:52 WBC RBC Hgb Hct MCV MCH MCHC RDW Plt Count MPV Absolute Neuts (auto) Neutrophils % Lymphocytes % Monocytes % Eosinophils % Basophils % Nucleated RBC % ESR Sodium Potassium Chloride Carbon Dioxide Anion Gap BUN Creatinine Est GFR (CKD-EPI)AfAm Est GFR (CKD-EPI)NonAf POC Glucometer 260 162 Random Glucose Hemoglobin A1c % Calcium Phosphorus Magnesium Total Bilirubin AST ALT Alkaline Phosphatase C-Reactive Protein Total Protein Albumin Triglycerides Cholesterol Total LDL Cholesterol HDL Cholesterol Urine Color Urine Appearance Urine pH Ur Specific [place] Urine Protein Urine Glucose (UA) Urine Ketones Urine Blood Urine Nitrite Urine Bilirubin Urine Urobilinogen Ur Leukocyte Esterase Urine WBC (Auto) Urine RBC (Auto) Urine Casts (Auto) U Epithel Cells (Auto) Urine Bacteria (Auto) COVID-19 (JOSHUA) Not detected 03/02/20 03/02/20 03/02/20 05:45 07:26 07:26 WBC 11.9 H RBC 4.31 Hgb 12.6 Hct 36.6 MCV 84.9 MCH 29.2 MCHC 34.4 RDW 12.9 Plt Count 326 MPV 7.2 L Absolute Neuts (auto) 8.7 H Neutrophils % 72.9 Lymphocytes % 17.2 D Monocytes % 8.9 Eosinophils % 0.6 D Basophils % 0.4 Nucleated RBC % 0 ESR Sodium 135 L Potassium 3.9 Chloride 102 Carbon Dioxide 27 Anion Gap 7 L BUN 12.5 Creatinine 0.7 Est GFR (CKD-EPI)AfAm 123.13 Est GFR (CKD-EPI)NonAf 106.24 POC Glucometer 102 Random Glucose 113 H Hemoglobin A1c % Calcium 8.5 Phosphorus 3.1 Magnesium 2.1 Total Bilirubin 0.5 AST 12 L ALT 11 L Alkaline Phosphatase 114 C-Reactive Protein 14.6 H Total Protein 5.4 L Albumin 2.1 L Triglycerides Cholesterol Total LDL Cholesterol HDL Cholesterol Urine Color Urine Appearance Urine pH Ur Specific [place] Urine Protein Urine Glucose (UA) Urine Ketones Urine Blood Urine Nitrite Urine Bilirubin Urine Urobilinogen Ur Leukocyte Esterase Urine WBC (Auto) Urine RBC (Auto) Urine Casts (Auto) U Epithel Cells (Auto) Urine Bacteria (Auto) COVID-19 (JOSHUA) 03/02/20 03/02/20 03/02/20 07:26 07:26 09:54 WBC RBC Hgb Hct MCV MCH MCHC RDW Plt Count MPV Absolute Neuts (auto) Neutrophils % Lymphocytes % Monocytes % Eosinophils % Basophils % Nucleated RBC % ESR 83 H Sodium Potassium Chloride Carbon Dioxide Anion Gap BUN Creatinine Est GFR (CKD-EPI)AfAm Est GFR (CKD-EPI)NonAf POC Glucometer 226 Random Glucose Hemoglobin A1c % 14.1 H Calcium Phosphorus Magnesium Total Bilirubin AST ALT Alkaline Phosphatase C-Reactive Protein Total Protein Albumin Triglycerides Cholesterol Total LDL Cholesterol HDL Cholesterol Urine Color Urine Appearance Urine pH Ur Specific [place] Urine Protein Urine Glucose (UA) Urine Ketones Urine Blood Urine Nitrite Urine Bilirubin Urine Urobilinogen Ur Leukocyte Esterase Urine WBC (Auto) Urine RBC (Auto) Urine Casts (Auto) U Epithel Cells (Auto) Urine Bacteria (Auto) COVID-19 (JOSHUA) Active Medications Generic Name Dose Route Start Last Admin Trade Name Freq PRN Reason Stop Dose Admin Acetaminophen 650 mg 03/01/20 13:14 Tylenol - PO Q4H PRN PAIN LEVEL 6-10 Enoxaparin Sodium 40 mg 03/02/20 10:00 03/02/20 09:56 Lovenox - SQ 40 mg DAILY [facility] Administration Sodium Chloride 1,000 mls @ 0 mls/hr 03/01/20 11:15 03/01/20 12:09 Normal Saline - IV 1,000 mls/hr ASDIR [facility] Administration Wide Open Meropenem 1 gm/ Dextrose 100 mls @ 200 mls/hr 03/02/20 14:00 IVPB 03/02/20 14:29 ONCE ONE Piperacillin Sod/Tazobactam 50 mls @ 100 mls/hr 03/02/20 14:00 Sod 3.375 gm/ Dextrose IVPB Q8H-IV [facility] Protocol Clindamycin Phosphate 600 mg in 50 mls @ 100 mls/hr 03/02/20 14:00 Cleocin 600 Mg Premix Ivpb - IVPB Q8H-IV [facility] Protocol Insulin Aspart 1 vial 03/01/20 16:30 03/02/20 10:45 Novolog Vial Sliding Scale - SQ 4 units TIDAC [facility] Administration Protocol Insulin Detemir 10 units 03/01/20 22:00 03/02/20 09:55 Levemir Vial SQ 10 units BID [facility] Administration ASSESSMENT/PLAN: Pt is a 54 year old male with PMHx of DM, neuropathy, HLD presenting from [employer] office, L 3rd right toe gangrenous with surround erythema. #Sepsis 2/2 to L 3rd toe gangrene and cellulitis -Leukocytosis (11.8 --> 11.9) -Podiatry consulted; L 3rd toe amputation in AM -vascular consulted, no intervention at this time -MRI: no evidence of osteomyelitis or abscess; reported soft tissue thickening -CTA aorta with runoff; at least 2 vessel runoff to ankles visualized bilaterally; R adrenal nodule measuring 2.6cm most likely adenoma -ID consulted; Clindamycin and Zosyn per ID #Hx of DM -uncontrolled DM, 547 bG on admission, 14.4 A1c -On levemir 10u BID and SSI/bgm #HLD -newly diagnosed -begin statin on dc ATTENDING PHYSICIAN STATEMENT I saw and evaluated the patient. I reviewed the resident's note and discussed the case with the resident. I agree with the resident's findings and plan as documented. SUBJECTIVE: OBJECTIVE: ASSESSMENT AND PLAN:
[2020-03-02] MEDS ORDERED: DEXTROSE 5%-WATER - 50 ML IVPB ONE (14:27)
[2020-03-02] MEDS ORDERED: PIPERACILLIN/TAZOBACTAM 3.375 GM VIAL IVPB ONE (14:27)
[2020-03-02] MEDS: CLINDAMYCIN 600MG PREMIX IVPB 600 MG/50 ML BAG IVPB SCH ×2 (14:29→17:01)
[2020-03-02] MEDS: PIPERACILLIN/TAZOB 3.375 GM 3.375 GM in DEXTROSE 5%-WATER - 50 ML IVPB SCH ×2 (15:16→17:01)
[2020-03-02] MEDS ORDERED: guaiFENesin/D-M SUGAR-FREE/ACLHOL-FREE 118 ML BOTTLE PO PRN (19:19)
[2020-03-02 21:58] LABS: INR 1.16 (0.83-1.09); PROTHROMBIN TIME (PATIENT) 13.7 SEC (9.7-13.0)
[2020-03-03] MEDS ORDERED: DEXTROSE 5%-WATER - 50 ML IVPB ONE ×3 (00:15→16:10)
[2020-03-03] MEDS ORDERED: PIPERACILLIN/TAZOBACTAM 3.375 GM VIAL IVPB ONE ×3 (00:15→16:10)
[2020-03-03] MEDS ORDERED: guaiFENesin/D-M SUGAR-FREE/ACLHOL-FREE 118 ML BOTTLE PO ONE (00:28)
[2020-03-03] MEDS: CLINDAMYCIN 600MG PREMIX IVPB 600 MG/50 ML BAG IVPB SCH ×3 (01:00→17:06)
[2020-03-03] MEDS: PIPERACILLIN/TAZOB 3.375 GM 3.375 GM in DEXTROSE 5%-WATER - 50 ML IVPB SCH ×3 (01:30→17:00)
[2020-03-03] MEDS: INSULIN SLIDING SCALE (NOVOLOG) 1 VIAL SQ SCH ×3 (06:37→16:48)
[2020-03-03 08:30] LABS: BASO % 0.5 % (0-2.0); EOS % 1.2 % (0-4.5); HEMATOCRIT 37.3 % (35.4-49); HEMOGLOBIN 12.8 GM/dL (11.7-16.9); MCH 29.3 pg (25.7-33.7); MCHC 34.4 g/dl (32.0-35.9); MEAN CELL VOLUME 85.3 fl (80-96); MEAN PLT VOLUME 7.1 fl (7.5-11.1); MONO % 9.1 % (3.8-10.2); NEUT % 72.2 % (42.8-82.8); PLATELET COUNT 347 K/MM3 (134-434); RBC 4.37 M/mm3 (4.00-5.60); RDW 12.7 % (11.9-15.9); WHITE BLOOD COUNT 10.4 K/mm3 (4.0-10.0)
[2020-03-03 09:04] LABS: BILIRUBIN,TOTAL 0.5 mg/dL (0.2-1); BLOOD UREA NITROGEN 12.1 mg/dL (7-18); CREATININE 0.8 mg/dL (0.55-1.3); MAGNESIUM 2.2 mg/dL (1.8-2.4); PHOSPHOROUS 3.4 mg/dL (2.5-4.9); POTASSIUM 4.3 mmol/L (3.5-5.1); TOT PROT 5.4 g/dl (6.4-8.2)
--- NOTE | 2020-03-03 09:15 | PN ---
Progress Note, Physician History of Present Illness: stable no new issues going for amputation - Current Medication List Current Medications: Active Medications Acetaminophen (Tylenol -) 650 mg PO Q4H PRN PRN Reason: PAIN LEVEL 6-10 Piperacillin Sod/Tazobactam (Sod 3.375 gm/ Dextrose) 50 mls @ 100 mls/hr IVPB Q8H-IV [facility]; Protocol Last Admin: 03/03/20 01:30 Dose: 100 mls/hr Documented by: Clindamycin Phosphate (Cleocin 600 Mg Premix Ivpb -) 600 mg in 50 mls @ 100 mls/hr IVPB Q8H-IV [facility]; Protocol Last Admin: 03/03/20 09:04 Dose: 100 mls/hr Documented by: Insulin Aspart (Novolog Vial Sliding Scale -) 1 vial SQ TIDAC [facility]; Protocol Last Admin: 03/03/20 06:37 Dose: Not Given Documented by: Insulin Detemir (Levemir Vial) 15 units SQ BID@0700,2200 [facility] - Objective Vital Signs: Vital Signs Temperature 98.4 F 03/03/20 06:00 Pulse Rate 72 03/03/20 06:00 Respiratory Rate 18 03/03/20 06:00 Blood Pressure 131/72 03/03/20 06:00 O2 Sat by Pulse Oximetry (%) 98 03/03/20 06:00 Constitutional: Yes: No Distress, Calm Cardiovascular: Yes: S1, S2 Respiratory: Yes: Regular, CTA Bilaterally Gastrointestinal: Yes: Normal Bowel Sounds, Soft Musculoskeletal: Yes: WNL Extremities: Yes: Other Integumentary: Yes: Other Neurological: Yes: Alert, Oriented Labs: CBC, BMP 03/03/20 07:20 03/03/20 07:20 INR, PTT INR 1.16 (0.83-1.09) H 03/02/20 21:20 Assessment/Plan 54 M L foot gangrene Uncontrolled T2Dm with hyperglycemia HTN HLD Active smoker plan zosyn clinda for amputation today rest as per the team
--- NOTE | 2020-03-03 10:19 | PN ---
Physical Exam: SUBJECTIVE: Patient seen and examined No complaints this AM. Planned L 3rd toe amp today with podiatry OBJECTIVE: Vital Signs Temperature 98.4 F 03/03/20 06:00 Pulse Rate 72 03/03/20 06:00 Respiratory Rate 18 03/03/20 06:00 Blood Pressure 131/72 03/03/20 06:00 O2 Sat by Pulse Oximetry (%) 98 03/03/20 06:00 VSS NAD unlabored breathing on RA LLE: warm, cellulitis to dorsum of foot improving with edema and erythema decreased, +ROM of toes and foot, dry gangrene of 3rd digit, no purulence, palpable DP/pop/fem, compartments soft/ compressible/nontender RLE: warm, nonedematous, palpable DP/pop/fem Laboratory Results - last 24 hr 03/02/20 03/02/20 03/02/20 16:21 17:00 21:14 WBC RBC Hgb Hct MCV MCH MCHC RDW Plt Count MPV Absolute Neuts (auto) Neutrophils % Lymphocytes % Monocytes % Eosinophils % Basophils % Nucleated RBC % PT with INR INR PTT (Actin FS) Sodium Potassium Chloride Carbon Dioxide Anion Gap BUN Creatinine Est GFR (CKD-EPI)AfAm Est GFR (CKD-EPI)NonAf POC Glucometer 287 330 Random Glucose Calcium Phosphorus Magnesium Total Bilirubin AST ALT Alkaline Phosphatase Total Protein Albumin Blood Type O POSITIVE Antibody Screen Negative 03/02/20 03/03/20 03/03/20 21:20 05:58 07:20 WBC 10.4 H RBC 4.37 Hgb 12.8 Hct 37.3 MCV 85.3 MCH 29.3 MCHC 34.4 RDW 12.7 Plt Count 347 MPV 7.1 L Absolute Neuts (auto) 7.5 Neutrophils % 72.2 Lymphocytes % 17.0 Monocytes % 9.1 Eosinophils % 1.2 D Basophils % 0.5 Nucleated RBC % 0 PT with INR 13.70 H INR 1.16 H PTT (Actin FS) Sodium Potassium Chloride Carbon Dioxide Anion Gap BUN Creatinine Est GFR (CKD-EPI)AfAm Est GFR (CKD-EPI)NonAf POC Glucometer 206 Random Glucose Calcium Phosphorus Magnesium Total Bilirubin AST ALT Alkaline Phosphatase Total Protein Albumin Blood Type Antibody Screen 03/03/20 03/03/20 07:20 07:20 WBC RBC Hgb Hct MCV MCH MCHC RDW Plt Count MPV Absolute Neuts (auto) Neutrophils % Lymphocytes % Monocytes % Eosinophils % Basophils % Nucleated RBC % PT with INR INR PTT (Actin FS) 33.6 Sodium 134 L Potassium 4.3 Chloride 99 Carbon Dioxide 30 Anion Gap 4 L BUN 12.1 Creatinine 0.8 Est GFR (CKD-EPI)AfAm 116.56 Est GFR (CKD-EPI)NonAf 100.57 POC Glucometer Random Glucose 200 H Calcium 8.0 L Phosphorus 3.4 Magnesium 2.2 Total Bilirubin 0.5 AST 11 L ALT 14 Alkaline Phosphatase 145 H Total Protein 5.4 L Albumin 2.0 L Blood Type Antibody Screen Active Medications Generic Name Dose Route Start Last Admin Trade Name Freq PRN Reason Stop Dose Admin Acetaminophen 650 mg 03/01/20 13:14 Tylenol - PO Q4H PRN PAIN LEVEL 6-10 Piperacillin Sod/Tazobactam 50 mls @ 100 mls/hr 03/02/20 14:30 03/03/20 09:39 Sod 3.375 gm/ Dextrose IVPB 100 mls/hr Q8H-IV [facility]IAM Administration Protocol Clindamycin Phosphate 600 mg in 50 mls @ 100 mls/hr 03/02/20 14:00 03/03/20 09:04 Cleocin 600 Mg Premix Ivpb - IVPB 100 mls/hr Q8H-IV WILLIAM Administration Protocol Insulin Aspart 1 vial 03/01/20 16:30 03/03/20 06:37 Novolog Vial Sliding Scale - SQ Not Given TIDAC [facility] Protocol Insulin Detemir 15 units 03/03/20 22:00 Levemir Vial SQ BID@0700,2200 [facility] ASSESSMENT/PLAN: 54yoM uncontrolled DM (A1c 14.1), HLD p/w cellulitis and dry gangrene of L 3rd toe with palpable DP/pop/fem pulses. CTA bilateral common fem arteries, SFA and deep fem arteries, pop patent, with 2 vessel run-off to ankles bilaterally with symmetric enhancement No osteo. Plan for L 3rd toe amp by podiatry today Continue local wound care: betadine with dry dressing, further recs per podiatry Abx as per ID control BG/FS DVT ppx appreciate hospitalist comanagement recommend offload weight from L 3rd toes Vascular surgery will sign-off d/w Dr. Schilling
[2020-03-03] MEDS ORDERED: BUPIVACAINE HCL 50 ML ONE (10:47)
[2020-03-03] MEDS ORDERED: LIDOCAINE HCL 1%, 10 MG/ML (20ML VIAL) ONE (10:47)
[2020-03-03] MEDS ORDERED: MIDAZOLAM HCL 2 MG/2 ML SINGLE DOSE VIAL ONE (11:15)
[2020-03-03] MEDS ORDERED: PROPOFOL 20 ML ONE (11:16)
[2020-03-03] MEDS ORDERED: ACETAMINOPHEN 325 MG TABLET (FP) PO PRN (12:13)
--- NOTE | 2020-03-03 13:47 | PN ---
Teaching Attending Note Name of Resident: Isaac Mejia ATTENDING PHYSICIAN STATEMENT I saw and evaluated the patient. I reviewed the resident's note and discussed the case with the resident. I agree with the resident's findings and plan as documented. SUBJECTIVE: OBJECTIVE: Last Vital Signs Temp Pulse Resp BP Pulse Ox 98.9 F 91 H 18 138/71 97 03/03/20 12:58 03/03/20 12:58 03/03/20 12:58 03/03/20 12:58 03/03/20 12:58 GENERAL: Awake, alert, and fully oriented, in no acute distress. LUNGS: Breath sounds equal, clear to auscultation bilaterally. No wheezes, and no crackles. No accessory muscle use. HEART: Regular rate and rhythm, normal S1 and S2 ABDOMEN: Soft, nontender, not distended LOWER EXTREMITIES: warm, well-perfused. No calf tenderness. No peripheral edema. Lt gangrenous 3rd toe with erythematous skin changes on dorsum, no swelling or tenderness, 2+ pulses NEUROLOGICAL: Cranial nerves II-XII intact. Normal speech. decreased sensation in foot CBCD WBC 10.4 K/mm3 (4.0-10.0) H 03/03/20 07:20 RBC 4.37 M/mm3 (4.00-5.60) 03/03/20 07:20 Hgb 12.8 GM/dL (11.7-16.9) 03/03/20 07:20 Hct 37.3 % (35.4-49) 03/03/20 07:20 MCV 85.3 fl (80-96) 03/03/20 07:20 MCHC 34.4 g/dl (32.0-35.9) 03/03/20 07:20 RDW 12.7 % (11.9-15.9) 03/03/20 07:20 Plt Count 347 K/MM3 (134-434) 03/03/20 07:20 MPV 7.1 fl (7.5-11.1) L 03/03/20 07:20 CMP Sodium 134 mmol/L (136-145) L 03/03/20 07:20 Potassium 4.3 mmol/L (3.5-5.1) 03/03/20 07:20 Chloride 99 mmol/L (98-107) 03/03/20 07:20 Carbon Dioxide 30 mmol/L (21-32) 03/03/20 07:20 Anion Gap 4 MMOL/L (8-16) L 03/03/20 07:20 BUN 12.1 mg/dL (7-18) 03/03/20 07:20 Creatinine 0.8 mg/dL (0.55-1.3) 03/03/20 07:20 Random Glucose 200 mg/dL (74-106) H 03/03/20 07:20 Calcium 8.0 mg/dL (8.5-10.1) L 03/03/20 07:20 Total Bilirubin 0.5 mg/dL (0.2-1) 03/03/20 07:20 AST 11 U/L (15-37) L 03/03/20 07:20 ALT 14 U/L (13-61) 03/03/20 07:20 Alkaline Phosphatase 145 U/L (45-117) H 03/03/20 07:20 Total Protein 5.4 g/dl (6.4-8.2) L 03/03/20 07:20 Albumin 2.0 g/dl (3.4-5.0) L 03/03/20 07:20 Active Medications Acetaminophen (Tylenol -) 650 mg PO Q4H PRN PRN Reason: PAIN LEVEL 6-10 Clindamycin Phosphate (Cleocin 600 Mg Premix Ivpb -) 600 mg in 50 mls @ 100 mls/hr IVPB Q8H-IV [facility]; Protocol Piperacillin Sod/Tazobactam (Sod 3.375 gm/ Dextrose) 50 mls @ 100 mls/hr IVPB Q8H-IV [facility]; Protocol Insulin Aspart (Novolog Vial Sliding Scale -) 1 vial SQ TIDAC [facility]; Protocol Insulin Detemir (Levemir Vial) 15 units SQ BID@0700,2200 [facility] ASSESSMENT AND PLAN: # sepsis due to Lt 3rd toe gangrene and cellulitis resolving leukocytosis, tachycardia, infection spot going for toe amputation in with podiatry Vascular consult appreciated, no intervention at this time ASA3, RCRI 2 (class III,moderate risk) Abx per ID Case discussed with ID Podiatry following DM HLD BPH DVT prophylaxis
[2020-03-03] MEDS ORDERED: PT OWN MED DRAWER 7, Y5N ONE (13:51)
--- NOTE | 2020-03-03 14:46 | PN ---
Physical Exam: SUBJECTIVE: Patient seen and examined. No fever, chills, foot pain. OBJECTIVE: Vital Signs Period Temp Pulse Resp BP Sys/Oliver Pulse Ox Last 24 Hr 98.3 F-99.2 F 72-97 10-18 110-150/60-85 93-100 GENERAL: The patient is awake, alert, and fully oriented, in no acute distress. HEAD: Normal with no signs of trauma. EYES: PERRL, extraocular movements intact, sclera anicteric, conjunctiva clear. No ptosis. ENT: Ears normal, nares patent, oropharynx clear without exudates, moist mucous membranes. NECK: Trachea midline, full range of motion, supple. LUNGS: Breath sounds equal, clear to auscultation bilaterally, no wheezes, no crackles, no accessory muscle use. HEART: Regular rate and rhythm, S1, S2 without murmur, rub or gallop. ABDOMEN: Soft, nontender, nondistended, normoactive bowel sounds, no guarding, no rebound, no hepatosplenomegaly, no masses. EXTREMITIES: 2+ pulses, warm, well-perfused. Left 3rd toe gangrenous, surrounding erythema onto dorsum of foot. No edema. NEUROLOGICAL: Cranial nerves II through XII grossly intact. Normal speech, gait not observed. PSYCH: Normal mood, normal affect. SKIN: Warm, dry, normal turgor, no rashes or lesions noted Laboratory Results - last 24 hr 03/02/20 03/02/20 03/02/20 16:21 17:00 21:14 WBC RBC Hgb Hct MCV MCH MCHC RDW Plt Count MPV Absolute Neuts (auto) Neutrophils % Lymphocytes % Monocytes % Eosinophils % Basophils % Nucleated RBC % PT with INR INR PTT (Actin FS) Sodium Potassium Chloride Carbon Dioxide Anion Gap BUN Creatinine Est GFR (CKD-EPI)AfAm Est GFR (CKD-EPI)NonAf POC Glucometer 287 330 Random Glucose Calcium Phosphorus Magnesium Total Bilirubin AST ALT Alkaline Phosphatase Total Protein Albumin Blood Type O POSITIVE Antibody Screen Negative 03/02/20 03/03/20 03/03/20 21:20 05:58 07:20 WBC 10.4 H RBC 4.37 Hgb 12.8 Hct 37.3 MCV 85.3 MCH 29.3 MCHC 34.4 RDW 12.7 Plt Count 347 MPV 7.1 L Absolute Neuts (auto) 7.5 Neutrophils % 72.2 Lymphocytes % 17.0 Monocytes % 9.1 Eosinophils % 1.2 D Basophils % 0.5 Nucleated RBC % 0 PT with INR 13.70 H INR 1.16 H PTT (Actin FS) Sodium Potassium Chloride Carbon Dioxide Anion Gap BUN Creatinine Est GFR (CKD-EPI)AfAm Est GFR (CKD-EPI)NonAf POC Glucometer 206 Random Glucose Calcium Phosphorus Magnesium Total Bilirubin AST ALT Alkaline Phosphatase Total Protein Albumin Blood Type Antibody Screen 03/03/20 03/03/20 03/03/20 07:20 07:20 12:23 WBC RBC Hgb Hct MCV MCH MCHC RDW Plt Count MPV Absolute Neuts (auto) Neutrophils % Lymphocytes % Monocytes % Eosinophils % Basophils % Nucleated RBC % PT with INR INR PTT (Actin FS) 33.6 Sodium 134 L Potassium 4.3 Chloride 99 Carbon Dioxide 30 Anion Gap 4 L BUN 12.1 Creatinine 0.8 Est GFR (CKD-EPI)AfAm 116.56 Est GFR (CKD-EPI)NonAf 100.57 POC Glucometer 184 Random Glucose 200 H Calcium 8.0 L Phosphorus 3.4 Magnesium 2.2 Total Bilirubin 0.5 AST 11 L ALT 14 Alkaline Phosphatase 145 H Total Protein 5.4 L Albumin 2.0 L Blood Type Antibody Screen Active Medications Generic Name Dose Route Start Last Admin Trade Name Freq PRN Reason Stop Dose Admin Acetaminophen 650 mg 03/03/20 12:13 Tylenol - PO Q4H PRN PAIN LEVEL 6-10 Clindamycin Phosphate 600 mg in 50 mls @ 100 mls/hr 03/03/20 18:00 Cleocin 600 Mg Premix Ivpb - IVPB Q8H-IV [facility] Protocol Piperacillin Sod/Tazobactam 50 mls @ 100 mls/hr 03/03/20 18:00 Sod 3.375 gm/ Dextrose IVPB Q8H-IV [facility] Protocol Insulin Aspart 1 vial 03/03/20 16:30 Novolog Vial Sliding Scale - SQ TIDAC [facility] Protocol Insulin Detemir 15 units 03/03/20 22:00 Levemir Vial SQ BID@0700,2200 [facility] ASSESSMENT/PLAN: Pt is a 54 year old male with PMHx of DM, neuropathy, HLD presenting from [employer] office, L 3rd right toe gangrenous with surround erythema. #Sepsis 2/2 to L 3rd toe gangrene and cellulitis -Leukocytosis (11.8 --> 11.9) -Podiatry consulted; to amputate today -vascular consulted, no intervention at this time -MRI: no evidence of osteomyelitis or abscess; reported soft tissue thickening -CTA aorta with runoff; at least 2 vessel runoff to ankles visualized bilaterally; R adrenal nodule measuring 2.6cm most likely adenoma -ID consulted; Clindamycin and Zosyn per ID #Hx of DM -uncontrolled DM, 547 bG on admission, 14.4 A1c -On levemir 10u BID and SSI/bgm #HLD -newly diagnosed -begin statin on dc FEN No standing fluids Monitor electrolytes NPO for L 3rd toe amputation this AM Dispo Med surg. L 3rd toe Amputation today with podiatry. ATTENDING PHYSICIAN STATEMENT I saw and evaluated the patient. I reviewed the resident's note and discussed the case with the resident. I agree with the resident's findings and plan as documented. SUBJECTIVE: OBJECTIVE: ASSESSMENT AND PLAN:
[2020-03-03] MEDS: guaiFENesin 200 MG/10 ML 10 ML UNIT-DOSE CUPS PO PRN ×2 (17:01→20:56)
[2020-03-03] MEDS: INSULIN (LEVEMIR) 100 UNITS/ML UNITS SQ SCH (21:01)
--- NOTE | 2020-03-03 21:25 | OP ---
Operative Note - Note: Operative Date: 03/03/20 Pre-Operative Diagnosis: Gangarene 3rd toe left Operation: Amputation 3rd toe left at MPJ Findings: Necrotic bone and soft tissue Post-Operative Diagnosis: Same as Pre-op Surgeon: Saul Wade Anesthesiologist/INTERVIEWING CLERK: Bharath Brown Anesthesia: Local, MAC Estimated Blood Loss (mls): 3
[2020-03-03] MEDS ORDERED: INSULIN (LEVEMIR) 100 UNITS/ML UNITS SQ SCH (22:00)
[2020-03-04] MEDS ORDERED: PIPERACILLIN/TAZOBACTAM 3.375 GM VIAL IVPB ONE ×3 (01:00→16:47)
[2020-03-04] MEDS: CLINDAMYCIN 600MG PREMIX IVPB 600 MG/50 ML BAG IVPB SCH (01:00)
[2020-03-04] MEDS ORDERED: DEXTROSE 5%-WATER - 50 ML IVPB ONE ×3 (01:01→16:48)
[2020-03-04] MEDS: PIPERACILLIN/TAZOB 3.375 GM 3.375 GM in DEXTROSE 5%-WATER - 50 ML IVPB SCH ×3 (01:30→17:14)
[2020-03-04] MEDS: guaiFENesin 200 MG/10 ML 10 ML UNIT-DOSE CUPS PO PRN ×3 (01:38→11:32)
[2020-03-04] MEDS: INSULIN (LEVEMIR) 100 UNITS/ML UNITS SQ SCH ×3 (06:15→21:12)
[2020-03-04] MEDS: INSULIN SLIDING SCALE (NOVOLOG) 1 VIAL SQ SCH ×3 (06:15→16:44)
[2020-03-04 07:33] LABS: BASO % 0.8 % (0-2.0); HEMATOCRIT 38.1 % (35.4-49); HEMOGLOBIN 13.2 GM/dL (11.7-16.9); LYMPH % 16.3 % (8-40); MCH 29.9 pg (25.7-33.7); MCHC 34.7 g/dl (32.0-35.9); MEAN CELL VOLUME 86.3 fl (80-96); MEAN PLT VOLUME 7.1 fl (7.5-11.1); MONO % 8.8 % (3.8-10.2); NEUT % 73.1 % (42.8-82.8); PLATELET COUNT 368 K/MM3 (134-434); RBC 4.42 M/mm3 (4.00-5.60); WHITE BLOOD COUNT 10.4 K/mm3 (4.0-10.0)
[2020-03-04 07:53] LABS: ALBUMIN 2.2 g/dl (3.4-5.0); BILIRUBIN,TOTAL 0.4 mg/dL (0.2-1); BLOOD UREA NITROGEN 16.8 mg/dL (7-18); CALCIUM 8.3 mg/dL (8.5-10.1); MAGNESIUM 2.2 mg/dL (1.8-2.4); PHOSPHOROUS 3.8 mg/dL (2.5-4.9); POTASSIUM 4.1 mmol/L (3.5-5.1)
--- NOTE | 2020-03-04 08:35 | PN ---
Progress Note, Physician History of Present Illness: s/p amputation spiked a fever also c/o cough - Current Medication List Current Medications: Active Medications Acetaminophen (Tylenol -) 650 mg PO Q4H PRN PRN Reason: PAIN LEVEL 6-10 Last Admin: 03/03/20 20:56 Dose: 650 mg Documented by: Guaifenesin (Robitussin -) 10 ml PO Q4H PRN PRN Reason: COUGH Last Admin: 03/04/20 06:47 Dose: 10 ml Documented by: Clindamycin Phosphate (Cleocin 600 Mg Premix Ivpb -) 600 mg in 50 mls @ 100 mls/hr IVPB Q8H-IV [facility]; Protocol Last Admin: 03/04/20 01:00 Dose: 100 mls/hr Documented by: Piperacillin Sod/Tazobactam (Sod 3.375 gm/ Dextrose) 50 mls @ 100 mls/hr IVPB Q8H-IV [facility]; Protocol Last Admin: 03/04/20 01:30 Dose: 100 mls/hr Documented by: Insulin Aspart (Novolog Vial Sliding Scale -) 1 vial SQ TIDAC [facility]; Protocol Last Admin: 03/04/20 06:15 Dose: 6 units Documented by: Insulin Detemir (Levemir Vial) 15 units SQ BID@0700,2200 [facility] Last Admin: 03/04/20 06:15 Dose: 15 units Documented by: - Objective Vital Signs: Vital Signs Temperature 98.6 F 03/04/20 06:00 Pulse Rate 90 03/04/20 06:00 Respiratory Rate 20 03/04/20 06:00 Blood Pressure 140/79 03/04/20 06:00 O2 Sat by Pulse Oximetry (%) 98 03/04/20 06:00 Constitutional: Yes: No Distress, Calm Cardiovascular: Yes: S1, S2 Respiratory: Yes: Regular, CTA Bilaterally Gastrointestinal: Yes: Normal Bowel Sounds, Soft Musculoskeletal: Yes: WNL Extremities: Yes: Other Neurological: Yes: Alert, Oriented Psychiatric: Yes: Alert, Oriented Labs: CBC, BMP 03/04/20 06:29 03/04/20 06:29 INR, PTT INR 1.16 (0.83-1.09) H 03/02/20 21:20 Assessment/Plan 54 M L foot gangrene Uncontrolled T2Dm with hyperglycemia HTN HLD Active smoker plan continue zosyn will stop clinda wound care await for cx rep[orts
--- NOTE | 2020-03-04 10:18 | PN ---
Teaching Attending Note Name of Resident: Isaac Mejia ATTENDING PHYSICIAN STATEMENT I saw and evaluated the patient. I reviewed the resident's note and discussed the case with the resident. I agree with the resident's findings and plan as documented. SUBJECTIVE: pt seen and examined, c/o cough, had episode of fever over night +chills OBJECTIVE: Last Vital Signs Temp Pulse Resp BP Pulse Ox 99.2 F 97 H 20 137/71 98 03/04/20 08:33 03/04/20 08:33 03/04/20 09:00 03/04/20 08:33 03/04/20 09:00 GENERAL: Awake, alert, and fully oriented, in no acute distress. LUNGS: Breath sounds equal, clear to auscultation bilaterally. No wheezes, and no crackles. No accessory muscle use. HEART: Regular rate and rhythm, normal S1 and S2 ABDOMEN: Soft, nontender, not distended LOWER EXTREMITIES: warm, well-perfused. No calf tenderness. No peripheral edema. lt 3rd toe amputation, dressed, no tenderness, 2+ pulses NEUROLOGICAL: Cranial nerves II-XII intact. Normal speech. decreased sensation in foot CBCD WBC 10.4 K/mm3 (4.0-10.0) H 03/04/20 06:29 RBC 4.42 M/mm3 (4.00-5.60) 03/04/20 06:29 Hgb 13.2 GM/dL (11.7-16.9) 03/04/20 06:29 Hct 38.1 % (35.4-49) 03/04/20 06:29 MCV 86.3 fl (80-96) 03/04/20 06:29 MCHC 34.7 g/dl (32.0-35.9) 03/04/20 06:29 RDW 13.0 % (11.9-15.9) 03/04/20 06:29 Plt Count 368 K/MM3 (134-434) 03/04/20 06:29 MPV 7.1 fl (7.5-11.1) L 03/04/20 06:29 CMP Sodium 135 mmol/L (136-145) L 03/04/20 06:29 Potassium 4.1 mmol/L (3.5-5.1) 03/04/20 06: Chloride 100 mmol/L (98-107) 03/04/20 06:29 Carbon Dioxide 30 mmol/L (21-32) 03/04/20 06:29 Anion Gap 5 MMOL/L (8-16) L 03/04/20 06:29 BUN 16.8 mg/dL (7-18) 03/04/20 06:29 Creatinine 1.0 mg/dL (0.55-1.3) 03/04/20 06:29 Calcium 8.3 mg/dL (8.5-10.1) L 03/04/20 06:29 Total Bilirubin 0.4 mg/dL (0.2-1) 03/04/20 06:29 AST 17 U/L (15-37) 03/04/20 06:29 ALT 17 U/L (13-61) 03/04/20 06:29 Alkaline Phosphatase 186 U/L (45-117) H 03/04/20 06:29 Total Protein 6.0 g/dl (6.4-8.2) L 03/04/20 06:29 Albumin 2.2 g/dl (3.4-5.0) L 03/04/20 06:29 Active Medications Acetaminophen (Tylenol -) 650 mg PO Q4H PRN PRN Reason: PAIN LEVEL 6-10 Last Admin: 03/03/20 20:56 Dose: 650 mg Documented by: Guaifenesin (Robitussin -) 10 ml PO Q4H PRN PRN Reason: COUGH Last Admin: 03/04/20 06:47 Dose: 10 ml Documented by: Guaifenesin (Diabetic Tussin Dm -) 5 ml PO ONCE ONE Stop: 03/04/20 09:27 Piperacillin Sod/Tazobactam (Sod 3.375 gm/ Dextrose) 50 mls @ 100 mls/hr IVPB Q8H-IV [facility]; Protocol Last Admin: 03/04/20 09:07 Dose: 100 mls/hr Documented by: Insulin Aspart (Novolog Vial Sliding Scale -) 1 vial SQ TIDAC [facility]; Protocol Last Admin: 03/04/20 06:15 Dose: 6 units Documented by: Insulin Aspart (Novolog Vial) 5 units SQ TIDAC [facility]; Protocol Insulin Detemir (Levemir Vial) 25 units SQ BID@0700,2200 [facility] ASSESSMENT AND PLAN: 54 yo Man hx of uncontrolled DM (A1c 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 # sepsis due to Lt 3rd toe gangrene and cellulitis s/p amputation of 3rd lt toe spiked fever clindamycin d/c'ed c/o dry cough obtain CXR, anti-tussive meds Abx per ID Case discussed with ID Podiatry following DM HLD BPH DVT prophylaxis
--- NOTE | 2020-03-04 10:37 | PN ---
Physical Exam: SUBJECTIVE: Patient seen and examined. Pt complaining of overnight cough, fever, chills. Denies foot pain, n/v, diarrhea/constipation. OBJECTIVE: Vital Signs Period Temp Pulse Resp BP Sys/Oliver Pulse Ox Last 24 Hr 98.6 F-100.5 F 82-98 10 110-150/60-87 92-100 GENERAL: The patient is awake, alert, and fully oriented, in no acute distress. HEAD: Normal with no signs of trauma. EYES: PERRL, extraocular movements intact, sclera anicteric, conjunctiva clear. No ptosis. ENT: Ears normal, nares patent, oropharynx clear without exudates, moist mucous membranes. NECK: Trachea midline, full range of motion, supple. LUNGS: Breath sounds equal, clear to auscultation bilaterally, no wheezes, no crackles, no accessory muscle use. HEART: Regular rate and rhythm, S1, S2 without murmur, rub or gallop. ABDOMEN: Soft, nontender, nondistended, normoactive bowel sounds, no guarding, no rebound, no hepatosplenomegaly, no masses. EXTREMITIES: 2+ pulses, warm, well-perfused. Left 3rd toe amputated, dressed ,without tenderness. NEUROLOGICAL: Cranial nerves II through XII grossly intact. Normal speech, gait not observed. PSYCH: Normal mood, normal affect. SKIN: Warm, dry, normal turgor, no rashes or lesions noted Laboratory Results - last 24 hr 03/03/20 03/03/20 03/03/20 12:23 16:38 20:53 WBC RBC Hgb Hct MCV MCH MCHC RDW Plt Count MPV Absolute Neuts (auto) Neutrophils % Lymphocytes % Monocytes % Eosinophils % Basophils % Nucleated RBC % Sodium Potassium Chloride Carbon Dioxide Anion Gap BUN Creatinine Est GFR (CKD-EPI)AfAm Est GFR (CKD-EPI)NonAf POC Glucometer 184 311 300 Random Glucose Calcium Phosphorus Magnesium Total Bilirubin AST ALT Alkaline Phosphatase Total Protein Albumin 03/04/20 03/04/20 03/04/20 06:04 06:29 06:29 WBC 10.4 H RBC 4.42 Hgb 13.2 Hct 38.1 MCV 86.3 MCH 29.9 MCHC 34.7 RDW 13.0 Plt Count 368 MPV 7.1 L Absolute Neuts (auto) 7.6 Neutrophils % 73.1 Lymphocytes % 16.3 Monocytes % 8.8 Eosinophils % 1.0 Basophils % 0.8 Nucleated RBC % 0 Sodium 135 L Potassium 4.1 Chloride 100 Carbon Dioxide 30 Anion Gap 5 L BUN 16.8 Creatinine 1.0 Est GFR (CKD-EPI)AfAm 97.77 Est GFR (CKD-EPI)NonAf 84.35 POC Glucometer 281 Random Glucose 294 H Calcium 8.3 L Phosphorus 3.8 Magnesium 2.2 Total Bilirubin 0.4 AST 17 ALT 17 Alkaline Phosphatase 186 H Total Protein 6.0 L Albumin 2.2 L Active Medications Generic Name Dose Route Start Last Admin Trade Name Freq PRN Reason Stop Dose Admin Acetaminophen 650 mg 03/03/20 12:13 03/03/20 20:56 Tylenol - PO 650 mg Q4H PRN Administration PAIN LEVEL 6-10 Guaifenesin 10 ml 03/03/20 17:14 03/04/20 06:47 Robitussin - PO 10 ml Q4H PRN Administration COUGH Guaifenesin 5 ml 03/04/20 11:00 Diabetic Tussin Dm - PO 03/04/20 11:01 ONCE ONE Piperacillin Sod/Tazobactam 50 mls @ 100 mls/hr 03/03/20 18:00 03/04/20 09:07 Sod 3.375 gm/ Dextrose IVPB 100 mls/hr Q8H-IV [facility] Administration Protocol Insulin Aspart 1 vial 03/03/20 16:30 03/04/20 06:15 Novolog Vial Sliding Scale - SQ 6 units TIDAC [facility] Administration Protocol Insulin Aspart 5 units 03/04/20 11:00 Novolog Vial SQ TIDAC [facility] Protocol Insulin Detemir 25 units 03/04/20 10:11 Levemir Vial SQ BID@0700,2200 [facility] ASSESSMENT/PLAN: t is a 54 year old male with PMHx of DM, neuropathy, HLD 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 #Sepsis 2/2 to L 3rd toe gangrene and cellulitis -Leukocytosis downtrending, 10.4 -Podiatry consulted; L 3rd toe amputation POD #1 -vascular consulted, no intervention at this time -MRI and CT images reviewed -Foot x ray; amputation of L 3rd toe, soft tissue air and swelling, calcaneal spurring; bunion formation by first MTP joint -ID consulted; on Zosyn; Clinda has been d/c -off loading shoe required -CXR for nonproductive cough pt has been complaining of for several weeks; no acute changes noted #Hx of DM -uncontrolled DM, 547 bG on admission, 14.4 A1c -On levemir 10u BID and SSI/bgm #HLD -newly diagnosed -begin statin on dc FEN No standing fluids Monitor electrolytes Diabetic/sodium controlled diet Dispo Med surg. L 3rd toe Amputation POD1. ATTENDING PHYSICIAN STATEMENT I saw and evaluated the patient. I reviewed the resident's note and discussed the case with the resident. I agree with the resident's findings and plan as documented. SUBJECTIVE: OBJECTIVE: ASSESSMENT AND PLAN:
[2020-03-04] MEDS ORDERED: guaiFENesin/D-M SUGAR-FREE/ACLHOL-FREE 118 ML BOTTLE PO ONE (11:00)
[2020-03-04] MEDS: INSULIN (NOVOLOG) ASPART 100 UNITS/ML 10ML VIAL SQ SCH ×2 (11:27→16:44)
[2020-03-04] MEDS ORDERED: PT OWN MED DRAWER 7, Y5N ONE ×3 (11:40→18:12)
--- NOTE | 2020-03-04 12:40 | PN ---
Progress Note (short form) - Note Progress Note: Anesthesia Post Op Note Pt s/p sedation for amputation 3rd toe Pt awake alert denies n/v, ambul no urinry retention VSS no apparent anesthes compl [place] Medrano.
--- NOTE | 2020-03-04 16:34 | PN ---
Progress Note, Physician Chief Complaint: POD#1. No pain. - Current Medication List Current Medications: Active Medications Acetaminophen (Tylenol -) 650 mg PO Q4H PRN PRN Reason: PAIN LEVEL 6-10 Last Admin: 03/03/20 20:56 Dose: 650 mg Documented by: Daphney (Diabetic Tussin Dm -) 5 ml PO Q6H PRN PRN Reason: COUGH Piperacillin Sod/Tazobactam (Sod 3.375 gm/ Dextrose) 50 mls @ 100 mls/hr IVPB Q8H-IV [facility]; Protocol Last Admin: 03/04/20 09:07 Dose: 100 mls/hr Documented by: Insulin Aspart (Novolog Vial Sliding Scale -) 1 vial SQ TIDAC [facility]; Protocol Last Admin: 03/04/20 11:28 Dose: 2 units Documented by: Insulin Aspart (Novolog Vial) 5 units SQ TIDAC [facility]; Protocol Last Admin: 03/04/20 11:27 Dose: 5 units Documented by: Insulin Detemir (Levemir Vial) 25 units SQ BID@0700,2200 [facility] - Objective Vital Signs: Vital Signs Temperature 99.8 F H 03/04/20 13:50 Pulse Rate 92 H 03/04/20 13:50 Respiratory Rate 20 03/04/20 13:50 Blood Pressure 120/68 03/04/20 13:50 O2 Sat by Pulse Oximetry (%) 95 03/04/20 13:50 Wound/Incision: Yes: Clean/Dry, Dressing Dry and Intact, Other Labs: CBC, BMP 03/04/20 06:29 03/04/20 06:29 INR, PTT INR 1.16 (0.83-1.09) H 03/02/20 21:20 Assessment/Plan pod#1 Dressing change tomorrow. Will follow.
[2020-03-04] MEDS: guaiFENesin/D-M SUGAR-FREE/ACLHOL-FREE 118 ML BOTTLE PO PRN (16:52)
[2020-03-05] MEDS ORDERED: DEXTROSE 5%-WATER - 50 ML IVPB ONE ×3 (01:44→17:04)
[2020-03-05] MEDS ORDERED: PIPERACILLIN/TAZOBACTAM 3.375 GM VIAL IVPB ONE ×3 (01:44→17:04)
[2020-03-05] MEDS: PIPERACILLIN/TAZOB 3.375 GM 3.375 GM in DEXTROSE 5%-WATER - 50 ML IVPB SCH ×3 (02:00→17:45)
[2020-03-05] MEDS: INSULIN (LEVEMIR) 100 UNITS/ML UNITS SQ SCH ×2 (06:23→21:34)
[2020-03-05] MEDS: INSULIN (NOVOLOG) ASPART 100 UNITS/ML 10ML VIAL SQ SCH ×3 (06:24→16:59)
[2020-03-05] MEDS: INSULIN SLIDING SCALE (NOVOLOG) 1 VIAL SQ SCH ×3 (06:25→16:59)
[2020-03-05 08:20] LABS: BASO % 0.5 % (0-2.0); HEMATOCRIT 36.6 % (35.4-49); HEMOGLOBIN 12.7 GM/dL (11.7-16.9); LYMPH % 19.8 % (8-40); MCHC 34.8 g/dl (32.0-35.9); MEAN CELL VOLUME 86.3 fl (80-96); MONO % 7.7 % (3.8-10.2); PLATELET COUNT 380 K/MM3 (134-434); RBC 4.24 M/mm3 (4.00-5.60); RDW 12.9 % (11.9-15.9); WHITE BLOOD COUNT 10.8 K/mm3 (4.0-10.0)
[2020-03-05 08:50] LABS: ALBUMIN 2.1 g/dl (3.4-5.0); BLOOD UREA NITROGEN 13.7 mg/dL (7-18); CALCIUM 8.1 mg/dL (8.5-10.1); CREATININE 0.8 mg/dL (0.55-1.3); MAGNESIUM 2.1 mg/dL (1.8-2.4); PHOSPHOROUS 3.1 mg/dL (2.5-4.9); POTASSIUM 4.3 mmol/L (3.5-5.1); TOT PROT 5.8 g/dl (6.4-8.2)
[2020-03-05 08:51] LABS: BILIRUBIN,TOTAL 0.4 mg/dL (0.2-1)
--- NOTE | 2020-03-05 10:29 | PN ---
Progress Note, Physician History of Present Illness: stable no new issues - Current Medication List Current Medications: Active Medications Acetaminophen (Tylenol -) 650 mg PO Q4H PRN PRN Reason: PAIN LEVEL 6-10 Last Admin: 03/03/20 20:56 Dose: 650 mg Documented by: Joaquinaifenesin (Diabetic Tussin Dm -) 5 ml PO Q6H PRN PRN Reason: COUGH Last Admin: 03/04/20 16:52 Dose: 5 ml Documented by: Piperacillin Sod/Tazobactam (Sod 3.375 gm/ Dextrose) 50 mls @ 100 mls/hr IVPB Q8H-IV [facility]; Protocol Last Admin: 03/05/20 09:48 Dose: 100 mls/hr Documented by: Insulin Aspart (Novolog Vial Sliding Scale -) 1 vial SQ TIDAC [facility]; Protocol Last Admin: 03/05/20 06:25 Dose: 4 units Documented by: Insulin Aspart (Novolog Vial) 5 units SQ TIDAC [facility]; Protocol Last Admin: 03/05/20 06:24 Dose: 5 units Documented by: Insulin Detemir (Levemir Vial) 25 units SQ BID@0700,2200 [facility] Last Admin: 03/05/20 06:23 Dose: 25 units Documented by: - Objective Vital Signs: Vital Signs Temperature 98.4 F 03/05/20 05:53 Pulse Rate 94 H 03/05/20 05:53 Respiratory Rate 18 03/05/20 05:53 Blood Pressure 160/96 03/05/20 05:53 O2 Sat by Pulse Oximetry (%) 98 03/05/20 05:53 Constitutional: Yes: No Distress, Calm Cardiovascular: Yes: S1, S2 Respiratory: Yes: Regular, CTA Bilaterally Gastrointestinal: Yes: Normal Bowel Sounds, Soft Musculoskeletal: Yes: Other Extremities: Yes: Other Wound/Incision: Yes: Dressing Dry and Intact Neurological: Yes: Alert, Oriented Psychiatric: Yes: Alert, Oriented Labs: CBC, BMP 03/05/20 06:55 03/05/20 06:55 INR, PTT INR 1.16 (0.83-1.09) H 03/02/20 21:20 Assessment/Plan 54 M L foot gangrene Uncontrolled T2Dm with hyperglycemia HTN HLD Active smoker plan await for podiatry to see the patient cx results noted will d/w podiatry rest as per the team
--- NOTE | 2020-03-05 10:53 | PN ---
Physical Exam: SUBJECTIVE: Patient seen and examined. No febrile events overnight. Denies fever/chills overnight. Complaining of persistent, non productive cough. OBJECTIVE: Vital Signs Period Temp Pulse Resp BP Sys/Oliver Pulse Ox Last 24 Hr 98.4 F-99.8 F 92-94 18-20 120-160/68-96 95-98 GENERAL: The patient is awake, alert, and fully oriented, in no acute distress. HEAD: Normal with no signs of trauma. EYES: PERRL, extraocular movements intact, sclera anicteric, conjunctiva clear. No ptosis. ENT: Ears normal, nares patent, oropharynx clear without exudates, moist mucous membranes. NECK: Trachea midline, full range of motion, supple. LUNGS: Breath sounds equal, clear to auscultation bilaterally, no wheezes, no crackles, no accessory muscle use. HEART: Regular rate and rhythm, S1, S2 without murmur, rub or gallop. ABDOMEN: Soft, nontender, nondistended, normoactive bowel sounds, no guarding, no rebound, no hepatosplenomegaly, no masses. EXTREMITIES: 2+ pulses, warm, well-perfused. Left 3rd toe amputated, dressed ,without tenderness. NEUROLOGICAL: Cranial nerves II through XII grossly intact. Normal speech, gait not observed. PSYCH: Normal mood, normal affect. SKIN: Warm, dry, normal turgor, no rashes or lesions noted Laboratory Results - last 24 hr 03/04/20 03/04/20 03/04/20 11:18 16:43 21:05 WBC RBC Hgb Hct MCV MCH MCHC RDW Plt Count MPV Absolute Neuts (auto) Neutrophils % Lymphocytes % Monocytes % Eosinophils % Basophils % Nucleated RBC % Sodium Potassium Chloride Carbon Dioxide Anion Gap BUN Creatinine Est GFR (CKD-EPI)AfAm Est GFR (CKD-EPI)NonAf POC Glucometer 188 118 166 Random Glucose Calcium Phosphorus Magnesium Total Bilirubin AST ALT Alkaline Phosphatase Total Protein Albumin 03/05/20 03/05/20 03/05/20 06:22 06:55 06:55 WBC 10.8 H RBC 4.24 Hgb 12.7 Hct 36.6 MCV 86.3 MCH 30.0 MCHC 34.8 RDW 12.9 Plt Count 380 MPV 7.0 L Absolute Neuts (auto) 7.6 Neutrophils % 71.0 Lymphocytes % 19.8 D Monocytes % 7.7 Eosinophils % 1.0 Basophils % 0.5 Nucleated RBC % 0 Sodium 134 L Potassium 4.3 Chloride 100 Carbon Dioxide 27 Anion Gap 7 L BUN 13.7 Creatinine 0.8 Est GFR (CKD-EPI)AfAm 116.56 Est GFR (CKD-EPI)NonAf 100.57 POC Glucometer 246 Random Glucose 244 H Calcium 8.1 L Phosphorus 3.1 Magnesium 2.1 Total Bilirubin 0.4 AST 18 ALT 19 Alkaline Phosphatase 248 H Total Protein 5.8 L Albumin 2.1 L Active Medications Generic Name Dose Route Start Last Admin Trade Name Freq PRN Reason Stop Dose Admin Acetaminophen 650 mg 03/03/20 12:13 03/03/20 20:56 Tylenol - PO 650 mg Q4H PRN Administration PAIN LEVEL 6-10 Guaifenesin 5 ml 03/04/20 15:44 03/04/20 16:52 Diabetic Tussin Dm - PO 5 ml Q6H PRN Administration COUGH Piperacillin Sod/Tazobactam 50 mls @ 100 mls/hr 03/03/20 18:00 03/05/20 09:48 Sod 3.375 gm/ Dextrose IVPB 100 mls/hr Q8H-IV [facility] Administration Protocol Insulin Aspart 1 vial 03/03/20 16:30 03/05/20 06:25 Novolog Vial Sliding Scale - SQ 4 units TIDAC [facility] Administration Protocol Insulin Aspart 5 units 03/04/20 11:00 03/05/20 06:24 Novolog Vial SQ 5 units TIDAC [facility] Administration Protocol Insulin Detemir 25 units 03/04/20 10:11 03/05/20 06:23 Levemir Vial SQ 25 units BID@0700,2200 [facility] Administration ASSESSMENT/PLAN: Pt is a 54 year old male with PMHx of DM, neuropathy, HLD 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 POD 2 L 3rd toe amputation #Sepsis 2/2 to L 3rd toe gangrene and cellulitis -Leukocytosis 10.8 -ID consulted; on zosyn -Podiatry consulted; L 3rd toe amputation POD #2 -vascular consulted, no intervention at this time -MRI and CT images reviewed -Foot x ray; amputation of L 3rd toe, soft tissue air and swelling, calcaneal spurring; bunion formation by first MTP joint -off loading shoe required -CXR for nonproductive cough pt has been complaining of for several weeks; no acute changes noted #DM -uncontrolled DM, 547 bG on admission, 14.4 A1c -SSI, BGM; Increased from 10 to 25u levemir BID and novolog 5u TIDAC #HLD -newly diagnosed -begin statin on dc FEN No standing fluids Monitor electrolytes Diabetic/sodium controlled diet Dispo Med surg. L 3rd toe Amputation POD1. ATTENDING PHYSICIAN STATEMENT I saw and evaluated the patient. I reviewed the resident's note and discussed the case with the resident. I agree with the resident's findings and plan as documented. SUBJECTIVE: OBJECTIVE: ASSESSMENT AND PLAN:
--- NOTE | 2020-03-05 11:11 | PN ---
Teaching Attending Note Name of Resident: Isaac Mejia ATTENDING PHYSICIAN STATEMENT I saw and evaluated the patient. I reviewed the resident's note and discussed the case with the resident. I agree with the resident's findings and plan as documented. SUBJECTIVE: pt seen and examined at bedside, denies complains OBJECTIVE: Last Vital Signs Temp Pulse Resp BP Pulse Ox 98.4 F 94 H 18 160/96 98 03/05/20 05:53 03/05/20 05:53 03/05/20 05:53 03/05/20 05:53 03/05/20 05:53 GENERAL: Awake, alert, and fully oriented, in no acute distress. LUNGS: Breath sounds equal, clear to auscultation bilaterally. No wheezes, and no crackles. No accessory muscle use. HEART: Regular rate and rhythm, normal S1 and S2 ABDOMEN: Soft, nontender, not distended LOWER EXTREMITIES: warm, well-perfused. No calf tenderness. No peripheral edema. lt 3rd toe amputation, dressed, no tenderness, 2+ pulses NEUROLOGICAL: Cranial nerves II-XII intact. Normal speech. decreased sensation in foot CBCD WBC 10.8 K/mm3 (4.0-10.0) H 03/05/20 06:55 RBC 4.24 M/mm3 (4.00-5.60) 03/05/20 06:55 Hgb 12.7 GM/dL (11.7-16.9) 03/05/20 06:55 Hct 36.6 % (35.4-49) 03/05/20 06:55 MCV 86.3 fl (80-96) 03/05/20 06:55 MCHC 34.8 g/dl (32.0-35.9) 03/05/20 06:55 RDW 12.9 % (11.9-15.9) 03/05/20 06:55 Plt Count 380 K/MM3 (134-434) 03/05/20 06:55 MPV 7.0 fl (7.5-11.1) L 03/05/20 06:55 CMP Sodium 134 mmol/L (136-145) L 03/05/20 06:55 Potassium 4.3 mmol/L (3.5-5.1) 03/05/20 06:55 Chloride 100 mmol/L (98-107) 03/05/20 06:55 Carbon Dioxide 27 mmol/L (21-32) 03/05/20 06:55 Anion Gap 7 MMOL/L (8-16) L 03/05/20 06:55 BUN 13.7 mg/dL (7-18) 03/05/20 06:55 Creatinine 0.8 mg/dL (0.55-1.3) 03/05/20 06:55 Calcium 8.1 mg/dL (8.5-10.1) L 03/05/20 06:55 Total Bilirubin 0.4 mg/dL (0.2-1) 03/05/20 06:55 AST 18 U/L (15-37) 03/05/20 06:55 ALT 19 U/L (13-61) 03/05/20 06:55 Alkaline Phosphatase 248 U/L (45-117) H 03/05/20 06:55 Total Protein 5.8 g/dl (6.4-8.2) L 03/05/20 06:55 Albumin 2.1 g/dl (3.4-5.0) L 03/05/20 06:55 Active Medications Acetaminophen (Tylenol -) 650 mg PO Q4H PRN PRN Reason: PAIN LEVEL 6-10 Last Admin: 03/03/20 20:56 Dose: 650 mg Documented by: Guaifenesin (Diabetic Tussin Dm -) 5 ml PO Q6H PRN PRN Reason: COUGH Last Admin: 03/04/20 16:52 Dose: 5 ml Documented by: Piperacillin Sod/Tazobactam (Sod 3.375 gm/ Dextrose) 50 mls @ 100 mls/hr IVPB Q8H-IV [facility]; Protocol Last Admin: 03/05/20 09:48 Dose: 100 mls/hr Documented by: Insulin Aspart (Novolog Vial Sliding Scale -) 1 vial SQ TIDAC [facility]; Protocol Last Admin: 03/05/20 06:25 Dose: 4 units Documented by: Insulin Aspart (Novolog Vial) 5 units SQ TIDAC [facility]; Protocol Last Admin: 03/05/20 06:24 Dose: 5 units Documented by: Insulin Detemir (Levemir Vial) 25 units SQ BID@0700,2200 [facility] Last Admin: 03/05/20 06:23 Dose: 25 units Documented by: ASSESSMENT AND PLAN: 54 yo Man hx of uncontrolled DM (A1c 14.1) with neuropathy, and HLD who 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 # sepsis due to Lt 3rd toe gangrene and cellulitis s/p amputation of 3rd lt toe afebrile, WBC trending down on Zosyn Cxr unremarkable Abx per ID Case discussed with ID Podiatry following DM HLD BPH DVT prophylaxis
--- NOTE | 2020-03-05 11:13 | PN ---
Progress Note, Physician Chief Complaint: POD#2. No pain. - Current Medication List Current Medications: Active Medications Acetaminophen (Tylenol -) 650 mg PO Q4H PRN PRN Reason: PAIN LEVEL 6-10 Last Admin: 03/03/20 20:56 Dose: 650 mg Documented by: Daphney (Diabetic Tussin Dm -) 5 ml PO Q6H PRN PRN Reason: COUGH Last Admin: 03/04/20 16:52 Dose: 5 ml Documented by: Piperacillin Sod/Tazobactam (Sod 3.375 gm/ Dextrose) 50 mls @ 100 mls/hr IVPB Q8H-IV [facility]; Protocol Last Admin: 03/05/20 09:48 Dose: 100 mls/hr Documented by: Insulin Aspart (Novolog Vial Sliding Scale -) 1 vial SQ TIDAC [facility]; Protocol Last Admin: 03/05/20 06:25 Dose: 4 units Documented by: Insulin Aspart (Novolog Vial) 5 units SQ TIDAC [facility]; Protocol Last Admin: 03/05/20 06:24 Dose: 5 units Documented by: Insulin Detemir (Levemir Vial) 25 units SQ BID@0700,2200 [facility] Last Admin: 03/05/20 06:23 Dose: 25 units Documented by: - Objective Vital Signs: Vital Signs Temperature 98.4 F 03/05/20 05:53 Pulse Rate 94 H 03/05/20 05:53 Respiratory Rate 18 03/05/20 05:53 Blood Pressure 160/96 03/05/20 05:53 O2 Sat by Pulse Oximetry (%) 98 03/05/20 05:53 Wound/Incision: Yes: Other (+packing intact, +retention sutures intact, +improved cellulitis) Labs: CBC, BMP 03/05/20 06:55 03/05/20 06:55 INR, PTT INR 1.16 (0.83-1.09) H 03/02/20 21:20 Assessment/Plan pod#2 Packing pulled. Betadine dressing change done. Viewed by Dr. Mosquera. Discussed that he will remain in hospital and continue IVABX until more improvement of cellulitis. Will follow.
[2020-03-05] MEDS ORDERED: PT OWN MED DRAWER 7, Y5N ONE (11:17)
[2020-03-05] MEDS: guaiFENesin/D-M SUGAR-FREE/ACLHOL-FREE 118 ML BOTTLE PO PRN ×2 (11:19→21:36)
--- NOTE | 2020-03-05 19:25 | PATH ---
Surgical Pathology Report Patient Name: WAYNE HOLMAN Med. Rec. #: [id number] /Age/Gender: 1965 (Age: 54) / M Account: [id number] Location: [address] [place] [address]/[facility] Taken: 03/03/2020 Received: 03/03/2020 Reported: 03/05/2020 Physicians: TAVON English Specimen(s) Received LEFT THIRD TOE Clinical History Gangrene left third toe Final Diagnosis LEFT THIRD TOE, AMPUTATION: AMPUTATED TOE SHOWING GANGRENOUS NECROSIS WITH SEVERE ACUTE AND CHRONIC INFLAMMATION, ABSCESS FORMATION, INVOLVING SKIN AND SOFT TISSUE MARGIN. ACUTE OSTEOMYELITIS, EXTENDING TO BONE MARGIN. Electronically Signed Jacinta Pablo M.D. Gross Description Received in formalin labeled "left third toe," is a 6.0 x 1.8 x 1.5 cm toe amputation. The entire epidermal surface displays a black/guzmán, gangrenous lesion involving the skin and soft tissue margin as well the underlying bone. [employer] sections are submitted in 3 cassettes as follows: 1-lesion with underlying bone, following decalcification; 2-bone margin, following decalcification; 3-skin and soft tissue margin. /03/03/2020 saudi/03/03/2020
[2020-03-06] MEDS ORDERED: DEXTROSE 5%-WATER - 50 ML IVPB ONE ×3 (01:38→17:34)
[2020-03-06] MEDS ORDERED: PIPERACILLIN/TAZOBACTAM 3.375 GM VIAL IVPB ONE ×3 (01:38→17:33)
[2020-03-06] MEDS: PIPERACILLIN/TAZOB 3.375 GM 3.375 GM in DEXTROSE 5%-WATER - 50 ML IVPB SCH ×3 (01:49→17:36)
[2020-03-06] MEDS: guaiFENesin/D-M SUGAR-FREE/ACLHOL-FREE 118 ML BOTTLE PO PRN ×2 (03:02→08:57)
[2020-03-06] MEDS: INSULIN SLIDING SCALE (NOVOLOG) 1 VIAL SQ SCH ×3 (06:39→16:55)
[2020-03-06] MEDS: INSULIN (LEVEMIR) 100 UNITS/ML UNITS SQ SCH ×2 (06:43→21:50)
[2020-03-06] MEDS: INSULIN (NOVOLOG) ASPART 100 UNITS/ML 10ML VIAL SQ SCH ×3 (06:43→16:56)
[2020-03-06 08:08] LABS: BASO % 0.7 % (0-2.0); EOS % 1.1 % (0-4.5); HEMATOCRIT 33.3 % (35.4-49); HEMOGLOBIN 11.4 GM/dL (11.7-16.9); LYMPH % 18.4 % (8-40); MCH 29.2 pg (25.7-33.7); MCHC 34.1 g/dl (32.0-35.9); MEAN CELL VOLUME 85.6 fl (80-96); MEAN PLT VOLUME 6.9 fl (7.5-11.1); MONO % 8.9 % (3.8-10.2); NEUT % 70.9 % (42.8-82.8); PLATELET COUNT 422 K/MM3 (134-434); RBC 3.89 M/mm3 (4.00-5.60); RDW 12.6 % (11.9-15.9)
[2020-03-06 08:35] LABS: ALBUMIN 1.9 g/dl (3.4-5.0); BILIRUBIN,TOTAL 0.4 mg/dL (0.2-1); BLOOD UREA NITROGEN 12.1 mg/dL (7-18); CREATININE 0.8 mg/dL (0.55-1.3); MAGNESIUM 2.2 mg/dL (1.8-2.4); PHOSPHOROUS 3.4 mg/dL (2.5-4.9); POTASSIUM 4.3 mmol/L (3.5-5.1); TOT PROT 5.6 g/dl (6.4-8.2)
[2020-03-06] MEDS ORDERED: PT OWN MED DRAWER 7, Y5N ONE (08:54)
--- NOTE | 2020-03-06 11:45 | PN ---
Progress Note, Physician History of Present Illness: po day 2 no complaints - Current Medication List Current Medications: Active Medications Acetaminophen (Tylenol -) 650 mg PO Q4H PRN PRN Reason: PAIN LEVEL 6-10 Last Admin: 03/03/20 20:56 Dose: 650 mg Documented by: Daphney (Diabetic Tussin Dm -) 5 ml PO Q6H PRN PRN Reason: COUGH Last Admin: 03/06/20 08:57 Dose: 5 ml Documented by: Piperacillin Sod/Tazobactam (Sod 3.375 gm/ Dextrose) 50 mls @ 100 mls/hr IVPB Q8H-IV [facility]; Protocol Last Admin: 03/06/20 09:01 Dose: 100 mls/hr Documented by: Insulin Aspart (Novolog Vial Sliding Scale -) 1 vial SQ TIDAC [facility]; Protocol Last Admin: 03/06/20 10:53 Dose: 6 units Documented by: Insulin Aspart (Novolog Vial) 5 units SQ TIDAC [facility]; Protocol Last Admin: 03/06/20 10:54 Dose: 5 units Documented by: Insulin Detemir (Levemir Vial) 25 units SQ BID@0700,2200 [facility] Last Admin: 03/06/20 06:43 Dose: Not Given Documented by: - Objective Vital Signs: Vital Signs Temperature 98.2 F 03/06/20 10:00 Pulse Rate 87 03/06/20 10:00 Respiratory Rate 20 03/06/20 10:00 Blood Pressure 142/86 03/06/20 10:00 O2 Sat by Pulse Oximetry (%) 98 03/06/20 10:00 Constitutional: Yes: No Distress, Calm Cardiovascular: Yes: S1, S2 Respiratory: Yes: Regular, CTA Bilaterally Gastrointestinal: Yes: Normal Bowel Sounds, Soft Musculoskeletal: Yes: WNL Extremities: Yes: Other Wound/Incision: Yes: Dressing Dry and Intact Neurological: Yes: Alert, Oriented Psychiatric: Yes: Alert, Oriented Labs: CBC, BMP 03/06/20 07:00 03/06/20 07:00 INR, PTT INR 1.16 (0.83-1.09) H 03/02/20 21:20 Assessment/Plan 54 M L foot gangrene Uncontrolled T2Dm with hyperglycemia HTN HLD Active smoker plan continue abx elevation of the leg rest as per the team
--- NOTE | 2020-03-06 13:27 | PN ---
Physical Exam: SUBJECTIVE: Patient seen and examined OBJECTIVE: Vital Signs Period Temp Pulse Resp BP Sys/Oliver Pulse Ox Last 24 Hr 98.2 F-99.4 F 86-93 18-20 129-150/67-86 96-98 GENERAL: Awake, alert, and fully oriented, in no acute distress. LUNGS: Breath sounds equal, clear to auscultation bilaterally. No wheezes, and no crackles. No accessory muscle use. HEART: Regular rate and rhythm, normal S1 and S2 ABDOMEN: Soft, nontender, not distended LOWER EXTREMITIES: warm, well-perfused. No calf tenderness. No peripheral edema. lt 3rd toe amputation, dressed, no tenderness, 2+ pulses NEUROLOGICAL: Cranial nerves II-XII intact. Normal speech. decreased sensation in foot Laboratory Results - last 24 hr 03/05/20 03/05/20 03/06/20 16:36 21:27 06:39 WBC RBC Hgb Hct MCV MCH MCHC RDW Plt Count MPV Absolute Neuts (auto) Neutrophils % Lymphocytes % Monocytes % Eosinophils % Basophils % Nucleated RBC % Sodium Potassium Chloride Carbon Dioxide Anion Gap BUN Creatinine Est GFR (CKD-EPI)AfAm Est GFR (CKD-EPI)NonAf POC Glucometer 139 201 124 Random Glucose Calcium Phosphorus Magnesium Total Bilirubin AST ALT Alkaline Phosphatase Total Protein Albumin 03/06/20 03/06/20 03/06/20 07:00 07:00 10:51 WBC 11.0 H RBC 3.89 L Hgb 11.4 L Hct 33.3 L MCV 85.6 MCH 29.2 MCHC 34.1 RDW 12.6 Plt Count 422 MPV 6.9 L Absolute Neuts (auto) 7.8 Neutrophils % 70.9 Lymphocytes % 18.4 Monocytes % 8.9 Eosinophils % 1.1 Basophils % 0.7 Nucleated RBC % 0 Sodium 138 Potassium 4.3 Chloride 103 Carbon Dioxide 28 Anion Gap 6 L BUN 12.1 Creatinine 0.8 Est GFR (CKD-EPI)AfAm 116.56 Est GFR (CKD-EPI)NonAf 100.57 POC Glucometer 267 Random Glucose 132 H Calcium 8.0 L Phosphorus 3.4 Magnesium 2.2 Total Bilirubin 0.4 AST 15 ALT 20 Alkaline Phosphatase 237 H Total Protein 5.6 L Albumin 1.9 L Active Medications Generic Name Dose Route Start Last Admin Trade Name Freq PRN Reason Stop Dose Admin Acetaminophen 650 mg 03/03/20 12:13 03/03/20 20:56 Tylenol - PO 650 mg Q4H PRN Administration PAIN LEVEL 6-10 Guaifenesin 5 ml 03/04/20 15:44 03/06/20 08:57 Diabetic Tussin Dm - PO 5 ml Q6H PRN Administration COUGH Piperacillin Sod/Tazobactam 50 mls @ 100 mls/hr 03/03/20 18:00 03/06/20 09:01 Sod 3.375 gm/ Dextrose IVPB 100 mls/hr Q8H-IV [facility] Administration Protocol Insulin Aspart 1 vial 03/03/20 16:30 03/06/20 10:53 Novolog Vial Sliding Scale - SQ 6 units TIDAC WILLIAM Administration Protocol Insulin Aspart 5 units 03/04/20 11:00 03/06/20 10:54 Novolog Vial SQ 5 units TIDAC [facility] Administration Protocol Insulin Detemir 25 units 03/04/20 10:11 03/06/20 06:43 Levemir Vial SQ Not Given BID@0700,2200 [facility] ASSESSMENT/PLAN: 54 yo Man hx of 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 # sepsis due to Lt 3rd toe gangrene and cellulitis s/p amputation of 3rd lt toe afebrile, with leukocytosis (mild) on Zosyn Surgical pathology report noted, showing gangrenous necrosis with severe acute and chronic inflammation, +abscess, margin+ acute OM extending to margin Abx per ID Case discussed with ID Podiatry following Plan per podiatry and ID DM HLD BPH DVT prophylaxis Visit type - Emergency Visit Emergency Visit: Yes ED Registration Date: 03/01/20 Care time: The patient presented to the Emergency Department on the above date and was hospitalized for further evaluation of their emergent condition. - New Patient This patient is new to me today: No - Critical Care Critical Care patient: No - Discharge Referral Referred to [facility] No
[2020-03-06] MEDS: HEPARIN NA (PORCINE) 5,000 UNITS/ML 1ML VIAL SQ SCH (21:51)
[2020-03-07] MEDS ORDERED: DEXTROSE 5%-WATER - 50 ML IVPB ONE ×2 (00:55→09:02)
[2020-03-07] MEDS ORDERED: PIPERACILLIN/TAZOBACTAM 3.375 GM VIAL IVPB ONE ×3 (00:55→17:47)
[2020-03-07] MEDS: PIPERACILLIN/TAZOB 3.375 GM 3.375 GM in DEXTROSE 5%-WATER - 50 ML IVPB SCH ×3 (01:45→17:49)
[2020-03-07] MEDS: INSULIN (LEVEMIR) 100 UNITS/ML UNITS SQ SCH ×2 (06:01→23:30)
[2020-03-07] MEDS: INSULIN SLIDING SCALE (NOVOLOG) 1 VIAL SQ SCH ×3 (06:02→16:51)
[2020-03-07] MEDS: INSULIN (NOVOLOG) ASPART 100 UNITS/ML 10ML VIAL SQ SCH ×3 (07:00→16:54)
[2020-03-07 08:20] LABS: BASO % 0.8 % (0-2.0); EOS % 1.5 % (0-4.5); HEMATOCRIT 34.5 % (35.4-49); LYMPH % 17.9 % (8-40); MCH 29.5 pg (25.7-33.7); MCHC 34.7 g/dl (32.0-35.9); MEAN PLT VOLUME 6.8 fl (7.5-11.1); MONO % 8.3 % (3.8-10.2); NEUT % 71.5 % (42.8-82.8); PLATELET COUNT 468 K/MM3 (134-434); RBC 4.06 M/mm3 (4.00-5.60); RDW 12.8 % (11.9-15.9); WHITE BLOOD COUNT 9.7 K/mm3 (4.0-10.0)
[2020-03-07 08:44] LABS: ALBUMIN 1.9 g/dl (3.4-5.0); BILIRUBIN,TOTAL 0.3 mg/dL (0.2-1); BLOOD UREA NITROGEN 11.7 mg/dL (7-18); CALCIUM 8.1 mg/dL (8.5-10.1); CREATININE 0.8 mg/dL (0.55-1.3); POTASSIUM 4.2 mmol/L (3.5-5.1); TOT PROT 5.6 g/dl (6.4-8.2)
[2020-03-07] MEDS: HEPARIN NA (PORCINE) 5,000 UNITS/ML 1ML VIAL SQ SCH ×2 (09:08→22:01)
[2020-03-07] MEDS ORDERED: PT OWN MED DRAWER 7, Y5N ONE (09:13)
[2020-03-07] MEDS: guaiFENesin/D-M SUGAR-FREE/ACLHOL-FREE 118 ML BOTTLE PO PRN (09:14)
--- NOTE | 2020-03-07 11:06 | PN ---
Physical Exam: SUBJECTIVE: Patient seen and examined at bedside. No acute events reported overnight. OBJECTIVE: Vital Signs Period Temp Pulse Resp BP Sys/Oliver Pulse Ox Last 24 Hr 98.2 F-99.1 F 90-91 18-20 119-154/66-90 96-98 GENERAL: AAOx3, in no acute distress HEENT: NCAT, PERRLA, EOMI, sclera anicteric, conjunctiva clear, oropharynx clear w/o exudates. MMM. NECK: Normal ROM, supple, no lymphadenopathy, JVD, or masses LUNGS: CTABL no wheezes/ rhonchi/ rales. No distress, speaks in full sentences. No increased work of breathing. HEART: RRR, normal S1 S2, no M/R/G, peripheral pulses 2+ and equal b/l ABDOMEN: Soft, NTND, + BS. No guarding or rebound. No hepatomegaly or splenomegaly. MSK: ROM WNL EXTREMITIES: Left 3rd toe amputated covered in a white dressing. No peripheral edema. No clubbing or cyanosis. NEUROLOGICAL: CN II-XII intact. Normal speech, normal gait, no focal sensorimotor deficits. SKIN: Warm, Dry, normal turgor, no rashes or lesions noted Laboratory Results - last 24 hr CBC, BMP 03/07/20 07:05 03/07/20 07:05 03/06/20 03/07/20 03/07/20 21:49 05:57 07:05 WBC 9.7 RBC 4.06 Hgb 12.0 Hct 34.5 L MCV 85.0 MCH 29.5 MCHC 34.7 RDW 12.8 Plt Count 468 H MPV 6.8 L Absolute Neuts (auto) 6.9 Neutrophils % 71.5 Lymphocytes % 17.9 Monocytes % 8.3 Eosinophils % 1.5 Basophils % 0.8 Nucleated RBC % 0 Sodium Potassium Chloride Carbon Dioxide Anion Gap BUN Creatinine Est GFR (CKD-EPI)AfAm Est GFR (CKD-EPI)NonAf POC Glucometer 194 197 Random Glucose Calcium Total Bilirubin AST ALT Alkaline Phosphatase Total Protein Albumin 03/07/20 07:05 WBC RBC Hgb Hct MCV MCH MCHC RDW Plt Count MPV Absolute Neuts (auto) Neutrophils % Lymphocytes % Monocytes % Eosinophils % Basophils % Nucleated RBC % Sodium 134 L Potassium 4.2 Chloride 101 Carbon Dioxide 28 Anion Gap 6 L BUN 11.7 Creatinine 0.8 Est GFR (CKD-EPI)AfAm 116.56 Est GFR (CKD-EPI)NonAf 100.57 POC Glucometer Random Glucose 180 H Calcium 8.1 L Total Bilirubin 0.3 AST 12 L ALT 18 Alkaline Phosphatase 247 H Total Protein 5.6 L Albumin 1.9 L Active Medications Generic Name Dose Route Start Last Admin Trade Name Freq PRN Reason Stop Dose Admin Acetaminophen 650 mg 03/03/20 12:13 03/03/20 20:56 Tylenol - PO 650 mg Q4H PRN Administration PAIN LEVEL 6-10 Guaifenesin 5 ml 03/04/20 15:44 03/07/20 09:14 Diabetic Tussin Dm - PO 5 ml Q6H PRN Administration COUGH Heparin Sodium (Porcine) 5,000 unit 03/06/20 22:00 03/07/20 09:08 Heparin - SQ 5,000 unit BID [facility] Administration Piperacillin Sod/Tazobactam 50 mls @ 100 mls/hr 03/03/20 18:00 03/07/20 09:07 Sod 3.375 gm/ Dextrose IVPB 100 mls/hr Q8H-IV [facility] Administration Protocol Insulin Aspart 1 vial 03/03/20 16:30 03/07/20 06:02 Novolog Vial Sliding Scale - SQ 2 units TIDAC WILLIAM Administration Protocol Insulin Aspart 5 units 03/04/20 11:00 03/06/20 16:56 Novolog Vial SQ 5 units TIDAC WILLIAM Administration Protocol Insulin Detemir 25 units 03/04/20 10:11 03/07/20 06:01 Levemir Vial SQ 25 units BID@0700,2200 [facility] Administration ASSESSMENT/PLAN: 54 y/o M with PMHx of DM, neuropathy, HLD presenting from attending pathologist office with L 3rd right toe gangrenous with surrounding erythema. POD 4 L 3rd toe amputation. #Sepsis 2/2 to L 3rd toe gangrene and cellulitis -Podiatry consulted; L 3rd toe amputation POD #4 -ID consulted; c/w zosyn -vascular consulted, no intervention at this time -Leukocytosis 9.7 today -Foot x ray-amputation of L 3rd toe, soft tissue air and swelling, calcaneal spurring; bunion formation by first MTP joint -Surgical pathology-gangrenous necrosis with severe acute and chronic inflammation, +abscess, margin+ acute OM extending to margin -off loading shoe required upon d/c #DM -uncontrolled DM -547 BG on admission; today's random BG was 180 -14.4 A1c -c/w ISS w BGM + 25u levemir BID and novolog 5u TIDAC -Diabetic counseling required at d/c #HLD -newly diagnosed duing this admission -begin statin on d/c #FEN -No standing fluids -Monitor electrolytes -Diabetic/sodium controlled diet Dispo continue to monitor in m/s Visit type - Emergency Visit Emergency Visit: No - New Patient This patient is new to me today: Yes Date on this admission: 03/07/20 - Critical Care Critical Care patient: No - Discharge Referral Referred to [facility] No ATTENDING PHYSICIAN STATEMENT I saw and evaluated the patient. I reviewed the resident's note and discussed the case with the resident. I agree with the resident's findings and plan as documented. SUBJECTIVE: OBJECTIVE: ASSESSMENT AND PLAN:
[2020-03-07] MEDS ORDERED: INSULIN (NOVOLOG) ASPART 100 UNITS/ML 10ML VIAL ONE ×2 (11:14→16:52)
--- NOTE | 2020-03-07 13:47 | PN ---
Teaching Attending Note Name of Resident: Luis Enrique Davis ATTENDING PHYSICIAN STATEMENT I saw and evaluated the patient. I reviewed the resident's note and discussed the case with the resident. I agree with the resident's findings and plan as documented. SUBJECTIVE: pt seen and examined at bedside OBJECTIVE: Last Vital Signs Temp Pulse Resp BP Pulse Ox 98.2 F 90 20 119/66 97 03/07/20 09:56 03/07/20 09:56 03/07/20 09:56 03/07/20 09:56 03/07/20 09:56 GENERAL: Awake, alert, and fully oriented, in no acute distress. LUNGS: Breath sounds equal, clear to auscultation bilaterally. No wheezes, and no crackles. No accessory muscle use. HEART: Regular rate and rhythm, normal S1 and S2 ABDOMEN: Soft, nontender, not distended LOWER EXTREMITIES: warm, well-perfused. No calf tenderness. No peripheral edema. lt 3rd toe amputation, dressed, no tenderness, 2+ pulses NEUROLOGICAL: Cranial nerves II-XII intact. Normal speech. decreased sensation in foot CBCD WBC 9.7 K/mm3 (4.0-10.0) 03/07/20 07:05 RBC 4.06 M/mm3 (4.00-5.60) 03/07/20 07:05 Hgb 12.0 GM/dL (11.7-16.9) 03/07/20 07:05 Hct 34.5 % (35.4-49) L 03/07/20 07:05 MCV 85.0 fl (80-96) 03/07/20 07:05 MCHC 34.7 g/dl (32.0-35.9) 03/07/20 07:05 RDW 12.8 % (11.9-15.9) 03/07/20 07:05 Plt Count 468 K/MM3 (134-434) H 03/07/20 07:05 MPV 6.8 fl (7.5-11.1) L 03/07/20 07:05 CMP Sodium 134 mmol/L (136-145) L 03/07/20 07:05 Potassium 4.2 mmol/L (3.5-5.1) 03/07/20 07:05 Chloride 101 mmol/L (98-107) 03/07/20 07:05 Carbon Dioxide 28 mmol/L (21-32) 03/07/20 07:05 Anion Gap 6 MMOL/L (8-16) L 03/07/20 07:05 BUN 11.7 mg/dL (7-18) 03/07/20 07:05 Creatinine 0.8 mg/dL (0.55-1.3) 03/07/20 07:05 Calcium 8.1 mg/dL (8.5-10.1) L 03/07/20 07:05 Total Bilirubin 0.3 mg/dL (0.2-1) 03/07/20 07:05 AST 12 U/L (15-37) L 03/07/20 07:05 ALT 18 U/L (13-61) 03/07/20 07:05 Alkaline Phosphatase 247 U/L (45-117) H 03/07/20 07:05 Total Protein 5.6 g/dl (6.4-8.2) L 03/07/20 07:05 Albumin 1.9 g/dl (3.4-5.0) L 03/07/20 07:05 Active Medications Acetaminophen (Tylenol -) 650 mg PO Q4H PRN PRN Reason: PAIN LEVEL 6-10 Last Admin: 03/03/20 20:56 Dose: 650 mg Documented by: Guaifenesin (Diabetic Tussin Dm -) 5 ml PO Q6H PRN PRN Reason: COUGH Last Admin: 03/07/20 09:14 Dose: 5 ml Documented by: Heparin Sodium (Porcine) (Heparin -) 5,000 unit SQ BID WILLIAM Last Admin: 03/07/20 09:08 Dose: 5,000 unit Documented by: Piperacillin Sod/Tazobactam (Sod 3.375 gm/ Dextrose) 50 mls @ 100 mls/hr IVPB Q8H-IV WILLIAM; Protocol Last Admin: 03/07/20 09:07 Dose: 100 mls/hr Documented by: Insulin Aspart (Novolog Vial Sliding Scale -) 1 vial SQ TIDAC [facility]; Protocol Last Admin: 03/07/20 11:15 Dose: 2 units Documented by: Insulin Aspart (Novolog Vial) 5 units SQ TIDAC [facility]; Protocol Last Admin: 03/07/20 11:15 Dose: 5 units Documented by: Insulin Detemir (Levemir Vial) 25 units SQ BID@0700,2200 WILL[facility] Last Admin: 03/07/20 06:01 Dose: 25 units Documented by: ASSESSMENT AND PLAN: 54 yo Man hx of 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 # sepsis due to Lt 3rd toe gangrene and cellulitis s/p amputation of 3rd lt toe afebrile, with leukocytosis (mild) on Zosyn Surgical pathology report noted, showing gangrenous necrosis with severe acute and chronic inflammation, +abscess, margin+ acute OM extending to margin Abx per ID Case discussed with ID Podiatry following Plan per podiatry and ID DM HLD BPH DVT prophylaxis
[2020-03-08] MEDS ORDERED: PIPERACILLIN/TAZOBACTAM 3.375 GM VIAL IVPB ONE ×3 (02:01→16:16)
[2020-03-08] MEDS ORDERED: DEXTROSE 5%-WATER - 50 ML IVPB ONE ×3 (02:01→16:16)
[2020-03-08] MEDS: PIPERACILLIN/TAZOB 3.375 GM 3.375 GM in DEXTROSE 5%-WATER - 50 ML IVPB SCH ×3 (02:06→17:15)
[2020-03-08] MEDS: INSULIN SLIDING SCALE (NOVOLOG) 1 VIAL SQ SCH ×3 (06:34→17:17)
[2020-03-08] MEDS: INSULIN (NOVOLOG) ASPART 100 UNITS/ML 10ML VIAL SQ SCH ×3 (06:58→17:17)
[2020-03-08] MEDS: INSULIN (LEVEMIR) 100 UNITS/ML UNITS SQ SCH ×2 (07:01→21:26)
[2020-03-08 07:38] LABS: BLOOD UREA NITROGEN 14.7 mg/dL (7-18); CALCIUM 7.9 mg/dL (8.5-10.1); POTASSIUM 4.8 mmol/L (3.5-5.1)
[2020-03-08 07:48] LABS: BASO % 0.6 % (0-2.0); EOS % 1.5 % (0-4.5); HEMATOCRIT 32.7 % (35.4-49); HEMOGLOBIN 11.3 GM/dL (11.7-16.9); MCH 29.4 pg (25.7-33.7); MCHC 34.5 g/dl (32.0-35.9); MEAN CELL VOLUME 85.4 fl (80-96); MEAN PLT VOLUME 6.5 fl (7.5-11.1); MONO % 8.3 % (3.8-10.2); NEUT % 67.6 % (42.8-82.8); PLATELET COUNT 494 K/MM3 (134-434); RBC 3.83 M/mm3 (4.00-5.60); RDW 12.9 % (11.9-15.9); WHITE BLOOD COUNT 10.4 K/mm3 (4.0-10.0)
[2020-03-08] MEDS: HEPARIN NA (PORCINE) 5,000 UNITS/ML 1ML VIAL SQ SCH ×2 (09:42→21:27)
--- NOTE | 2020-03-08 11:06 | PN ---
Progress Note, Physician Chief Complaint: POD#5. No pain. - Current Medication List Current Medications: Active Medications Acetaminophen (Tylenol -) 650 mg PO Q4H PRN PRN Reason: PAIN LEVEL 6-10 Last Admin: 03/03/20 20:56 Dose: 650 mg Documented by: Daphney (Diabetic Tussin Dm -) 5 ml PO Q6H PRN PRN Reason: COUGH Last Admin: 03/07/20 09:14 Dose: 5 ml Documented by: Heparin Sodium (Porcine) (Heparin -) 5,000 unit SQ BID [facility] Last Admin: 03/08/20 09:42 Dose: 5,000 unit Documented by: Piperacillin Sod/Tazobactam (Sod 3.375 gm/ Dextrose) 50 mls @ 100 mls/hr IVPB Q8H-IV [facility]; Protocol Last Admin: 03/08/20 09:42 Dose: 100 mls/hr Documented by: Insulin Aspart (Novolog Vial Sliding Scale -) 1 vial SQ TIDAC [facility]; Protocol Last Admin: 03/08/20 06:34 Dose: Not Given Documented by: Insulin Aspart (Novolog Vial) 5 units SQ TIDAC [facility]; Protocol Last Admin: 03/08/20 06:58 Dose: Not Given Documented by: Insulin Detemir (Levemir Vial) 30 units SQ BID@0700,2200 [facility] Last Admin: 03/08/20 07:01 Dose: 30 units Documented by: - Objective Vital Signs: Vital Signs Temperature 98.9 F 03/08/20 06:00 Pulse Rate 87 03/08/20 06:00 Respiratory Rate 20 03/08/20 06:00 Blood Pressure 122/76 03/08/20 06:00 O2 Sat by Pulse Oximetry (%) 95 03/08/20 06:00 Wound/Incision: Yes: Other (+retention sutures intact, wbc=10.4, -drainage, -mal odor, +cellulitis/erythema dorsum of foot slight improvement) Labs: CBC, BMP 03/08/20 06:15 03/08/20 06:15 INR, PTT INR 1.16 (0.83-1.09) H 03/02/20 21:20 Assessment/Plan pod#[address] Mosquera. Retention sutures removed. ID to change or add to abx. Betadine dressing change. Will follow.
[2020-03-08 12:16] VITALS: BMI 32.1
--- NOTE | 2020-03-08 13:06 | PN ---
Teaching Attending Note Name of Resident: Isaac Mejia ATTENDING PHYSICIAN STATEMENT I saw and evaluated the patient. I reviewed the resident's note and discussed the case with the resident. I agree with the resident's findings and plan as documented. SUBJECTIVE: pt seen and examined OBJECTIVE: Last Vital Signs Temp Pulse Resp BP Pulse Ox 98.9 F 87 20 122/76 95 03/08/20 06:00 03/08/20 06:00 03/08/20 06:00 03/08/20 06:00 03/08/20 06:00 GENERAL: Awake, alert, and fully oriented, in no acute distress. LUNGS: Breath sounds equal, clear to auscultation bilaterally. No wheezes, and no crackles. No accessory muscle use. HEART: Regular rate and rhythm, normal S1 and S2 ABDOMEN: Soft, nontender, not distended LOWER EXTREMITIES: warm, well-perfused. No calf tenderness. No peripheral edema. lt 3rd toe amputation, dressed, no tenderness, 2+ pulses NEUROLOGICAL: Cranial nerves II-XII intact. Normal speech. decreased sensation in foot CBCD WBC 10.4 K/mm3 (4.0-10.0) H 03/08/20 06:15 RBC 3.83 M/mm3 (4.00-5.60) L 03/08/20 06:15 Hgb 11.3 GM/dL (11.7-16.9) L 03/08/20 06:15 Hct 32.7 % (35.4-49) L 03/08/20 06:15 MCV 85.4 fl (80-96) 03/08/20 06:15 MCHC 34.5 g/dl (32.0-35.9) 03/08/20 06:15 RDW 12.9 % (11.9-15.9) 03/08/20 06:15 Plt Count 494 K/MM3 (134-434) H 03/08/20 06:15 MPV 6.5 fl (7.5-11.1) L 03/08/20 06:15 CMP Sodium 136 mmol/L (136-145) 03/08/20 06:15 Potassium 4.8 mmol/L (3.5-5.1) 03/08/20 06:15 Chloride 102 mmol/L (98-107) 03/08/20 06:15 Carbon Dioxide 29 mmol/L (21-32) 03/08/20 06:15 Anion Gap 6 MMOL/L (8-16) L 03/08/20 06:15 BUN 14.7 mg/dL (7-18) 03/08/20 06:15 Creatinine 1.0 mg/dL (0.55-1.3) 03/08/20 06:15 Calcium 7.9 mg/dL (8.5-10.1) L 03/08/20 06:15 Total Bilirubin 0.3 mg/dL (0.2-1) 03/07/20 07:05 AST 12 U/L (15-37) L 03/07/20 07:05 ALT 18 U/L (13-61) 03/07/20 07:05 Alkaline Phosphatase 247 U/L (45-117) H 03/07/20 07:05 Total Protein 5.6 g/dl (6.4-8.2) L 03/07/20 07:05 Albumin 1.9 g/dl (3.4-5.0) L 03/07/20 07:05 Active Medications Acetaminophen (Tylenol -) 650 mg PO Q4H PRN PRN Reason: PAIN LEVEL 6-10 Last Admin: 03/03/20 20:56 Dose: 650 mg Documented by: Guaifenesin (Diabetic Tussin Dm -) 5 ml PO Q6H PRN PRN Reason: COUGH Last Admin: 03/07/20 09:14 Dose: 5 ml Documented by: Heparin Sodium (Porcine) (Heparin -) 5,000 unit SQ BID [facility] Last Admin: 03/08/20 09:42 Dose: 5,000 unit Documented by: Piperacillin Sod/Tazobactam (Sod 3.375 gm/ Dextrose) 50 mls @ 100 mls/hr IVPB Q8H-IV [facility]; Protocol Last Admin: 03/08/20 09:42 Dose: 100 mls/hr Documented by: Insulin Aspart (Novolog Vial Sliding Scale -) 1 vial SQ TIDAC [facility]; Protocol Last Admin: 03/08/20 11:25 Dose: 6 units Documented by: Insulin Aspart (Novolog Vial) 5 units SQ TIDAC [facility]; Protocol Last Admin: 03/08/20 11:25 Dose: 5 units Documented by: Insulin Detemir (Levemir Vial) 30 units SQ BID@0700,2200 [facility] Last Admin: 03/08/20 07:01 Dose: 30 units Documented by: ASSESSMENT AND PLAN: 54 yo Man hx of 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 # sepsis due to Lt 3rd toe gangrene and cellulitis s/p amputation of 3rd lt toe afebrile, with leukocytosis (mild) on Zosyn Surgical pathology report noted, showing gangrenous necrosis with severe acute and chronic inflammation, +abscess, margin+ acute OM extending to margin Abx per ID Case discussed with ID Podiatry following Plan per podiatry and ID DM HLD BPH DVT prophylaxis
--- NOTE | 2020-03-08 13:23 | PN ---
Progress Note, Physician History of Present Illness: dressing removed with podiatry team leg still red wound looked at - Current Medication List Current Medications: Active Medications Acetaminophen (Tylenol -) 650 mg PO Q4H PRN PRN Reason: PAIN LEVEL 6-10 Last Admin: 03/03/20 20:56 Dose: 650 mg Documented by: Guaifenesin (Diabetic Tussin Dm -) 5 ml PO Q6H PRN PRN Reason: COUGH Last Admin: 03/07/20 09:14 Dose: 5 ml Documented by: Heparin Sodium (Porcine) (Heparin -) 5,000 unit SQ BID [facility] Last Admin: 03/08/20 09:42 Dose: 5,000 unit Documented by: Piperacillin Sod/Tazobactam (Sod 3.375 gm/ Dextrose) 50 mls @ 100 mls/hr IVPB Q8H-IV [facility]; Protocol Last Admin: 03/08/20 09:42 Dose: 100 mls/hr Documented by: Insulin Aspart (Novolog Vial Sliding Scale -) 1 vial SQ TIDAC [facility]; Protocol Last Admin: 03/08/20 11:25 Dose: 6 units Documented by: Insulin Aspart (Novolog Vial) 5 units SQ TIDAC [facility]; Protocol Last Admin: 03/08/20 11:25 Dose: 5 units Documented by: Insulin Detemir (Levemir Vial) 30 units SQ BID@0700,2200 [facility] Last Admin: 03/08/20 07:01 Dose: 30 units Documented by: - Objective Vital Signs: Vital Signs Temperature 98.9 F 03/08/20 06:00 Pulse Rate 87 03/08/20 06:00 Respiratory Rate 20 03/08/20 06:00 Blood Pressure 122/76 03/08/20 06:00 O2 Sat by Pulse Oximetry (%) 95 03/08/20 06:00 Constitutional: Yes: No Distress, Calm Cardiovascular: Yes: Regular Rate and Rhythm Respiratory: Yes: Regular, CTA Bilaterally Gastrointestinal: Yes: Normal Bowel Sounds, Soft Musculoskeletal: Yes: WNL Extremities: Yes: Other Wound/Incision: Yes: Dressing Removed, Other (wound looks still necrotic leg still cellulitis) Neurological: Yes: Alert, Oriented Psychiatric: Yes: Alert, Oriented Labs: CBC, BMP 03/08/20 06:15 03/08/20 06:15 INR, PTT INR 1.16 (0.83-1.09) H 03/02/20 21:20 Assessment/Plan 54 M L foot gangrene Uncontrolled T2Dm with hyperglycemia HTN HLD Active smoker plan plan to decompress the wound by opening sutures will also add vanco monitor the redness rest as per the team
--- NOTE | 2020-03-08 13:40 | PN ---
Physical Exam: SUBJECTIVE: Patient seen and examined. Denies any fever, foot pain. States cough is improving. OBJECTIVE: Vital Signs Period Temp Pulse Resp BP Sys/Oliver Pulse Ox Last 24 Hr 97.9 F-99.3 F 85-91 20-20 122-152/73-94 95-98 GENERAL: The patient is awake, alert, and fully oriented, in no acute distress. HEAD: Normal with no signs of trauma. EYES: PERRL, extraocular movements intact, sclera anicteric, conjunctiva clear. No ptosis. ENT: Ears normal, nares patent, oropharynx clear without exudates, moist mucous membranes. NECK: Trachea midline, full range of motion, supple. LUNGS: Breath sounds equal, clear to auscultation bilaterally, no wheezes, no crackles, no accessory muscle use. HEART: Regular rate and rhythm, S1, S2 without murmur, rub or gallop. ABDOMEN: Soft, nontender, nondistended, normoactive bowel sounds, no guarding, no rebound, no hepatosplenomegaly, no masses. EXTREMITIES: 2+ pulses, warm, well-perfused. Left 3rd toe amputated, dressed ,without tenderness. Erythema noted per ID and podiatry NEUROLOGICAL: Cranial nerves II through XII grossly intact. Normal speech, gait not observed. PSYCH: Normal mood, normal affect. SKIN: Warm, dry, normal turgor, no rashes or lesions noted Laboratory Results - last 24 hr 03/07/20 03/07/20 03/08/20 16:21 21:23 06:15 WBC 10.4 H RBC 3.83 L Hgb 11.3 L Hct 32.7 L MCV 85.4 MCH 29.4 MCHC 34.5 RDW 12.9 Plt Count 494 H MPV 6.5 L Absolute Neuts (auto) 7.0 Neutrophils % 67.6 Lymphocytes % 22.0 D Monocytes % 8.3 Eosinophils % 1.5 Basophils % 0.6 Nucleated RBC % 0 Sodium Potassium Chloride Carbon Dioxide Anion Gap BUN Creatinine Est GFR (CKD-EPI)AfAm Est GFR (CKD-EPI)NonAf POC Glucometer 99 138 Random Glucose Calcium 03/08/20 03/08/20 03/08/20 06:15 06:32 11:04 WBC RBC Hgb Hct MCV MCH MCHC RDW Plt Count MPV Absolute Neuts (auto) Neutrophils % Lymphocytes % Monocytes % Eosinophils % Basophils % Nucleated RBC % Sodium 136 Potassium 4.8 Chloride 102 Carbon Dioxide 29 Anion Gap 6 L BUN 14.7 Creatinine 1.0 Est GFR (CKD-EPI)AfAm 97.77 Est GFR (CKD-EPI)NonAf 84.35 POC Glucometer 138 270 Random Glucose 140 H Calcium 7.9 L Active Medications Generic Name Dose Route Start Last Admin Trade Name Freq PRN Reason Stop Dose Admin Acetaminophen 650 mg 03/03/20 12:13 03/03/20 20:56 Tylenol - PO 650 mg Q4H PRN Administration PAIN LEVEL 6-10 Guaifenesin 5 ml 03/04/20 15:44 03/07/20 09:14 Diabetic Tussin Dm - PO 5 ml Q6H PRN Administration COUGH Heparin Sodium (Porcine) 5,000 unit 03/06/20 22:00 03/08/20 09:42 Heparin - SQ 5,000 unit BID WILLIAM Administration Piperacillin Sod/Tazobactam 50 mls @ 100 mls/hr 03/03/20 18:00 03/08/20 09:42 Sod 3.375 gm/ Dextrose IVPB 100 mls/hr Q8H-IV WILLIAM Administration Protocol Vancomycin HCl 1,250 mg/ 250 mls @ 250 mls/2 hr 03/08/20 13:30 Dextrose IVPB Q24H WILLIAM Protocol Insulin Aspart 1 vial 03/03/20 16:30 03/08/20 11:25 Novolog Vial Sliding Scale - SQ 6 units TIDAC [facility] Administration Protocol Insulin Aspart 5 units 03/04/20 11:00 03/08/20 11:25 Novolog Vial SQ 5 units TIDAC [facility] Administration Protocol Insulin Detemir 30 units 03/07/20 22:00 03/08/20 07:01 Levemir Vial SQ 30 units BID@0700,2200 [facility] Administration ASSESSMENT/PLAN: Pt is a 54 year old male with PMHx of DM, neuropathy, HLD 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 POD 2 L 3rd toe amputation #Sepsis 2/2 to L 3rd toe gangrene and cellulitis -s/p amputation L 3rd toe -surgical path report showing gangrenous necrosis with severe acute and chronic inflammation, +abscess, margin+ acute OM extending to margin -Leukocytosis 10.4 -ID consulted; on zosyn day 7, added vanc -Podiatry consults appreciated; dressign changed today -vascular consulted, no intervention at this time -plan per podiatry and ID #DM -uncontrolled DM, 547 bG on admission, 14.4 A1c -SSI, BGM; on 30u levemir BID and novolog 5u TIDAC #HLD -newly diagnosed -begin statin on dc FEN No standing fluids Monitor electrolytes Diabetic/sodium controlled diet Dispo Med surg. L 3rd toe Amputation POD5. On zosyn and vanc. ATTENDING PHYSICIAN STATEMENT I saw and evaluated the patient. I reviewed the resident's note and discussed the case with the resident. I agree with the resident's findings and plan as documented. SUBJECTIVE: OBJECTIVE: ASSESSMENT AND PLAN:
[2020-03-08] MEDS ORDERED: PT OWN MED DRAWER 7, Y5N ONE (13:52)
[2020-03-08] MEDS: VANCOMYCIN HCL 1,250 MG in DEXTROSE 5%-WATER - 250 ML IVPB SCH (17:51)
[2020-03-08] MEDS: guaiFENesin/D-METHORPHAN HB 10 ML UNIT-DOSE CUPS PO PRN (23:11)
[2020-03-09] MEDS ORDERED: PIPERACILLIN/TAZOBACTAM 3.375 GM VIAL IVPB ONE ×3 (02:06→17:17)
[2020-03-09] MEDS ORDERED: DEXTROSE 5%-WATER - 50 ML IVPB ONE ×2 (02:06→17:18)
[2020-03-09] MEDS: PIPERACILLIN/TAZOB 3.375 GM 3.375 GM in DEXTROSE 5%-WATER - 50 ML IVPB SCH ×3 (02:21→17:49)
[2020-03-09] MEDS: INSULIN (LEVEMIR) 100 UNITS/ML UNITS SQ SCH ×2 (06:28→21:56)
[2020-03-09] MEDS: INSULIN SLIDING SCALE (NOVOLOG) 1 VIAL SQ SCH ×3 (06:29→16:51)
[2020-03-09] MEDS: INSULIN (NOVOLOG) ASPART 100 UNITS/ML 10ML VIAL SQ SCH ×3 (06:30→16:52)
[2020-03-09 08:20] LABS: BASO % 1.1 % (0-2.0); EOS % 1.8 % (0-4.5); HEMATOCRIT 33.8 % (35.4-49); HEMOGLOBIN 11.7 GM/dL (11.7-16.9); LYMPH % 22.6 % (8-40); MCH 29.4 pg (25.7-33.7); MCHC 34.6 g/dl (32.0-35.9); MEAN PLT VOLUME 6.4 fl (7.5-11.1); MONO % 8.6 % (3.8-10.2); NEUT % 65.9 % (42.8-82.8); PLATELET COUNT 549 K/MM3 (134-434); RBC 3.98 M/mm3 (4.00-5.60); RDW 13.3 % (11.9-15.9); WHITE BLOOD COUNT 9.5 K/mm3 (4.0-10.0)
[2020-03-09 08:34] LABS: BLOOD UREA NITROGEN 13.4 mg/dL (7-18); CALCIUM 8.2 mg/dL (8.5-10.1); CREATININE 0.8 mg/dL (0.55-1.3); MAGNESIUM 2.5 mg/dL (1.8-2.4); PHOSPHOROUS 3.4 mg/dL (2.5-4.9); POTASSIUM 4.6 mmol/L (3.5-5.1)
[2020-03-09] MEDS: HEPARIN NA (PORCINE) 5,000 UNITS/ML 1ML VIAL SQ SCH ×2 (09:59→21:53)
--- NOTE | 2020-03-09 11:11 | PN ---
Progress Note, Physician Chief Complaint: POD#6. No pain. - Current Medication List Current Medications: Active Medications Acetaminophen (Tylenol -) 650 mg PO Q4H PRN PRN Reason: PAIN LEVEL 6-10 Last Admin: 03/03/20 20:56 Dose: 650 mg Documented by: Guaifenesin (Robitussin Dm -) 5 ml PO Q6H PRN PRN Reason: COUGH Last Admin: 03/08/20 23:11 Dose: 5 ml Documented by: Heparin Sodium (Porcine) (Heparin -) 5,000 unit SQ BID [facility] Last Admin: 03/09/20 09:59 Dose: 5,000 unit Documented by: Piperacillin Sod/Tazobactam (Sod 3.375 gm/ Dextrose) 50 mls @ 100 mls/hr IVPB Q8H-IV [facility]IAM; Protocol Last Admin: 03/09/20 09:58 Dose: 100 mls/hr Documented by: Vancomycin HCl 1,250 mg/ (Dextrose) 250 mls @ 250 mls/2 hr IVPB Q24H [facility]; Protocol Last Admin: 03/08/20 17:51 Dose: 250 mls/2 hr Documented by: Insulin Aspart (Novolog Vial Sliding Scale -) 1 vial SQ TIDAC [facility]; Protocol Last Admin: 03/09/20 06:29 Dose: 2 units Documented by: Insulin Aspart (Novolog Vial) 5 units SQ TIDAC [facility]; Protocol Last Admin: 03/09/20 06:30 Dose: Not Given Documented by: Insulin Detemir (Levemir Vial) 30 units SQ BID@0700,2200 [facility] Last Admin: 03/09/20 06:28 Dose: 30 units Documented by: - Objective Vital Signs: Vital Signs Temperature 99.1 F 03/09/20 06:00 Pulse Rate 81 03/09/20 06:00 Respiratory Rate 20 03/09/20 06:00 Blood Pressure 118/57 L 03/09/20 06:00 O2 Sat by Pulse Oximetry (%) 94 L 03/09/20 06:00 Wound/Incision: Yes: Other (+granulating wound, +cellulitis dorsum foot, +improved wbc left) Labs: CBC, BMP 03/09/20 07:19 03/09/20 07:19 INR, PTT INR 1.16 (0.83-1.09) H 03/02/20 21:20 Assessment/Plan pod#6 Betadine dressing change. Discussed with Dr. Mosquera. Will follow. IVABX as per ID. Rest as per team.
[2020-03-09] MEDS ORDERED: PT OWN MED DRAWER 7, Y5N ONE ×2 (12:52→21:45)
[2020-03-09] MEDS: VANCOMYCIN HCL 1,250 MG in DEXTROSE 5%-WATER - 250 ML IVPB SCH (12:57)
--- NOTE | 2020-03-09 13:14 | PN ---
Progress Note, Physician History of Present Illness: leg still red wound healing - Current Medication List Current Medications: Active Medications Acetaminophen (Tylenol -) 650 mg PO Q4H PRN PRN Reason: PAIN LEVEL 6-10 Last Admin: 03/03/20 20:56 Dose: 650 mg Documented by: Guaifenesin (Robitussin Dm -) 5 ml PO Q6H PRN PRN Reason: COUGH Last Admin: 03/08/20 23:11 Dose: 5 ml Documented by: Heparin Sodium (Porcine) (Heparin -) 5,000 unit SQ BID WILLIAM Last Admin: 03/09/20 09:59 Dose: 5,000 unit Documented by: Piperacillin Sod/Tazobactam (Sod 3.375 gm/ Dextrose) 50 mls @ 100 mls/hr IVPB Q8H-IV [facility]; Protocol Last Admin: 03/09/20 09:58 Dose: 100 mls/hr Documented by: Vancomycin HCl 1,250 mg/ (Dextrose) 250 mls @ 250 mls/2 hr IVPB Q24H [facility]; Protocol Last Admin: 03/09/20 12:57 Dose: 250 mls/2 hr Documented by: Insulin Aspart (Novolog Vial Sliding Scale -) 1 vial SQ TIDAC [facility]; Protocol Last Admin: 03/09/20 11:10 Dose: 2 units Documented by: Insulin Aspart (Novolog Vial) 5 units SQ TIDAC [facility]; Protocol Last Admin: 03/09/20 11:12 Dose: 5 units Documented by: Insulin Detemir (Levemir Vial) 30 units SQ BID@0700,2200 [facility] Last Admin: 03/09/20 06:28 Dose: 30 units Documented by: - Objective Vital Signs: Vital Signs Temperature 99.1 F 03/09/20 06:00 Pulse Rate 81 03/09/20 06:00 Respiratory Rate 20 03/09/20 06:00 Blood Pressure 118/57 L 03/09/20 06:00 O2 Sat by Pulse Oximetry (%) 94 L 03/09/20 06:00 Constitutional: Yes: No Distress, Calm Cardiovascular: Yes: S1, S2 Respiratory: Yes: Regular, CTA Bilaterally Musculoskeletal: Yes: WNL Extremities: Yes: Erythema (improving), Other Neurological: Yes: Alert, Oriented Psychiatric: Yes: Alert, Oriented Labs: CBC, BMP 03/09/20 07:19 03/09/20 07:19 INR, PTT INR 1.16 (0.83-1.09) H 03/02/20 21:20 Assessment/Plan 54 M L foot gangrene Uncontrolled T2Dm with hyperglycemia HTN HLD Active smoker plan continue abx elevation of the leg rest as per the team
--- NOTE | 2020-03-09 15:31 | PN ---
Physical Exam: SUBJECTIVE: Patient seen and examined. OBJECTIVE: Vital Signs Period Temp Pulse Resp BP Sys/Oliver Pulse Ox Last 24 Hr 98.5 F-99.2 F 77-85 14-20 118-137/57-86 94-99 GENERAL: The patient is awake, alert, and fully oriented, in no acute distress. HEAD: Normal with no signs of trauma. EYES: PERRL, extraocular movements intact, sclera anicteric, conjunctiva clear. No ptosis. ENT: Ears normal, nares patent, oropharynx clear without exudates, moist mucous membranes. NECK: Trachea midline, full range of motion, supple. LUNGS: Breath sounds equal, clear to auscultation bilaterally, no wheezes, no crackles, no accessory muscle use. HEART: Regular rate and rhythm, S1, S2 without murmur, rub or gallop. ABDOMEN: Soft, nontender, nondistended, normoactive bowel sounds, no guarding, no rebound, no hepatosplenomegaly, no masses. EXTREMITIES: 2+ pulses, warm, well-perfused. Left 3rd toe amputated, dressed ,without tenderness. Erythema noted per ID and podiatry NEUROLOGICAL: Cranial nerves II through XII grossly intact. Normal speech, gait not observed. PSYCH: Normal mood, normal affect. SKIN: Warm, dry, normal turgor, no rashes or lesions noted Laboratory Results - last 24 hr 03/08/20 03/08/20 03/09/20 16:37 21:24 06:18 WBC RBC Hgb Hct MCV MCH MCHC RDW Plt Count MPV Absolute Neuts (auto) Neutrophils % Lymphocytes % Monocytes % Eosinophils % Basophils % Nucleated RBC % Sodium Potassium Chloride Carbon Dioxide Anion Gap BUN Creatinine Est GFR (CKD-EPI)AfAm Est GFR (CKD-EPI)NonAf POC Glucometer 180 241 155 Random Glucose Calcium Phosphorus Magnesium 03/09/20 03/09/20 03/09/20 07:19 07:19 11:10 WBC 9.5 RBC 3.98 L Hgb 11.7 Hct 33.8 L MCV 85.0 MCH 29.4 MCHC 34.6 RDW 13.3 Plt Count 549 H MPV 6.4 L Absolute Neuts (auto) 6.3 Neutrophils % 65.9 Lymphocytes % 22.6 Monocytes % 8.6 Eosinophils % 1.8 Basophils % 1.1 Nucleated RBC % 0 Sodium 137 Potassium 4.6 Chloride 102 Carbon Dioxide 30 Anion Gap 5 L BUN 13.4 Creatinine 0.8 Est GFR (CKD-EPI)AfAm 116.56 Est GFR (CKD-EPI)NonAf 100.57 POC Glucometer 162 Random Glucose 131 H Calcium 8.2 L Phosphorus 3.4 Magnesium 2.5 H Active Medications Generic Name Dose Route Start Last Admin Trade Name Freq PRN Reason Stop Dose Admin Acetaminophen 650 mg 03/03/20 12:13 03/03/20 20:56 Tylenol - PO 650 mg Q4H PRN Administration PAIN LEVEL 6-10 Guaifenesin 5 ml 03/08/20 22:59 03/08/20 23:11 Robitussin Dm - PO 5 ml Q6H PRN Administration COUGH Heparin Sodium (Porcine) 5,000 unit 03/06/20 22:00 03/09/20 09:59 Heparin - SQ 5,000 unit BID WILLIAM Administration Piperacillin Sod/Tazobactam 50 mls @ 100 mls/hr 03/03/20 18:00 03/09/20 09:58 Sod 3.375 gm/ Dextrose IVPB 100 mls/hr Q8H-IV [facility] Administration Protocol Vancomycin HCl 1,250 mg/ 250 mls @ 250 mls/2 hr 03/08/20 13:30 03/09/20 12:57 Dextrose IVPB 250 mls/2 hr Q24H [facility] Administration Protocol Insulin Aspart 1 vial 03/03/20 16:30 03/09/20 11:10 Novolog Vial Sliding Scale - SQ 2 units TIDAC [facility] Administration Protocol Insulin Aspart 5 units 03/04/20 11:00 03/09/20 11:12 Novolog Vial SQ 5 units TIDAC [facility] Administration Protocol Insulin Detemir 30 units 03/07/20 22:00 03/09/20 06:28 Levemir Vial SQ 30 units BID@0700,2200 [facility] Administration ASSESSMENT/PLAN: Pt is a 54 year old male with PMHx of DM, neuropathy, HLD 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 POD 2 L 3rd toe amputation #Sepsis 2/2 to L 3rd toe gangrene and cellulitis -s/p amputation L 3rd toe -surgical path report showing gangrenous necrosis with severe acute and chronic inflammation, +abscess, margin+ acute OM extending to margin -Leukocytosis 10.4 -ID consulted; on zosyn day 8, vanc day 2 -Podiatry consults appreciated; dressign changed today -vascular consulted, no intervention at this time -plan per podiatry and ID #DM -uncontrolled DM, 547 bG on admission, 14.4 A1c -SSI, BGM; on 30u levemir BID and novolog 5u TIDAC #HLD -newly diagnosed -begin statin on dc FEN No standing fluids Monitor electrolytes Diabetic/sodium controlled diet Dispo Med surg. L 3rd toe Amputation POD5. On zosyn and vanc. ATTENDING PHYSICIAN STATEMENT I saw and evaluated the patient. I reviewed the resident's note and discussed the case with the resident. I agree with the resident's findings and plan as documented. SUBJECTIVE: OBJECTIVE: ASSESSMENT AND PLAN:
--- NOTE | 2020-03-09 16:34 | PN ---
Teaching Attending Note Name of Resident: Isaac Mejia ATTENDING PHYSICIAN STATEMENT I saw and evaluated the patient. I reviewed the resident's note and discussed the case with the resident. I agree with the resident's findings and plan as documented. SUBJECTIVE: Feeling well, pain improved. Fever resolved OBJECTIVE: Tmax 99.2, Hemodynamically stable. Last Vital Signs Temp Pulse Resp BP Pulse Ox 98.5 F 77 14 130/86 98 03/09/20 15:00 03/09/20 15:00 03/09/20 15:00 03/09/20 15:00 03/09/20 15:00 HEENT - Atraumatic, Normocephalic. Heart - S1, S2, RRR Lungs - clear to auscultation Abdomen - Soft, non-tender. Bowel Sounds normal. Extremities - L foot amputation site dressed, no calf tenderness. Neuro - AAO x 3. Tone/Power normal. Laboratory Results - last 24 hr 03/08/20 03/08/20 03/09/20 16:37 21:24 06:18 WBC RBC Hgb Hct MCV MCH MCHC RDW Plt Count MPV Absolute Neuts (auto) Neutrophils % Lymphocytes % Monocytes % Eosinophils % Basophils % Nucleated RBC % Sodium Potassium Chloride Carbon Dioxide Anion Gap BUN Creatinine Est GFR (CKD-EPI)AfAm Est GFR (CKD-EPI)NonAf POC Glucometer 180 241 155 Random Glucose Calcium Phosphorus Magnesium 03/09/20 03/09/20 03/09/20 07:19 07:19 11:10 WBC 9.5 RBC 3.98 L Hgb 11.7 Hct 33.8 L MCV 85.0 MCH 29.4 MCHC 34.6 RDW 13.3 Plt Count 549 H MPV 6.4 L Absolute Neuts (auto) 6.3 Neutrophils % 65.9 Lymphocytes % 22.6 Monocytes % 8.6 Eosinophils % 1.8 Basophils % 1.1 Nucleated RBC % 0 Sodium 137 Potassium 4.6 Chloride 102 Carbon Dioxide 30 Anion Gap 5 L BUN 13.4 Creatinine 0.8 Est GFR (CKD-EPI)AfAm 116.56 Est GFR (CKD-EPI)NonAf 100.57 POC Glucometer 162 Random Glucose 131 H Calcium 8.2 L Phosphorus 3.4 Magnesium 2.5 H Current Medications Generic Name Dose Route Start Last Admin Trade Name Freq PRN Reason Stop Dose Admin Acetaminophen 650 mg 03/03/20 12:13 03/03/20 20:56 Tylenol - PO 650 mg Q4H PRN Administration PAIN LEVEL 6-10 Guaifenesin 5 ml 03/08/20 22:59 03/08/20 23:11 Robitussin Dm - PO 5 ml Q6H PRN Administration COUGH Heparin Sodium (Porcine) 5,000 unit 03/06/20 22:00 03/09/20 09:59 Heparin - SQ 5,000 unit BID WILLIAM Administration Piperacillin Sod/Tazobactam 50 mls @ 100 mls/hr 03/03/20 18:00 03/09/20 09:58 Sod 3.375 gm/ Dextrose IVPB 100 mls/hr Q8H-IV [facility] Administration Protocol Vancomycin HCl 1,250 mg/ 250 mls @ 250 mls/2 hr 03/08/20 13:30 03/09/20 12:57 Dextrose IVPB 250 mls/2 hr Q24H [facility] Administration Protocol Insulin Aspart 1 vial 03/03/20 16:30 03/09/20 11:10 Novolog Vial Sliding Scale - SQ 2 units TIDAC [facility] Administration Protocol Insulin Aspart 5 units 03/04/20 11:00 03/09/20 11:12 Novolog Vial SQ 5 units TIDAC [facility] Administration Protocol Insulin Detemir 30 units 03/07/20 22:00 03/09/20 06:28 Levemir Vial SQ 30 units BID@0700,2200 [facility] Administration Home Medications Medication Instructions Recorded metFORMIN HCL [Glucophage] 1,000 mg PO BID 12/01/13 Glipizide 5 mg PO BID 03/02/20 ASSESSMENT AND PLAN: 54 year old male with DM 2, neuropathy, and HLD, referred to ED by Podiatry for 3rd toe gangrene/cellulitis, failed out-patient therapy. 1. Sepsis secondary to L 3rd toe gangrene/cellulitis/Osteomyelitis Fever resolved POD 6 s/p L 3rd toe amputation, POD 1 s/p retention suture removal for surgical site decompression Surgical pathology report - gangrenous necrosis with osteomyelitis changes extending to margin Surgical Cx - Strep agalatiae, coag neg Staph Vancomycin added to IV Zosyn by ID Podiatry following. 2. DM 2 - Maintain on Levemir and Novolog sliding scale. DVT Px - Heparin SQ
[2020-03-09] MEDS: guaiFENesin/D-METHORPHAN HB 10 ML UNIT-DOSE CUPS PO PRN (21:56)
[2020-03-10] MEDS ORDERED: DEXTROSE 5%-WATER - 50 ML IVPB ONE ×3 (02:24→15:25)
[2020-03-10] MEDS ORDERED: PIPERACILLIN/TAZOBACTAM 3.375 GM VIAL IVPB ONE ×3 (02:24→15:25)
[2020-03-10] MEDS: PIPERACILLIN/TAZOB 3.375 GM 3.375 GM in DEXTROSE 5%-WATER - 50 ML IVPB SCH ×2 (02:32→09:12)
[2020-03-10] MEDS: INSULIN (NOVOLOG) ASPART 100 UNITS/ML 10ML VIAL SQ SCH ×3 (06:28→17:03)
[2020-03-10] MEDS: INSULIN SLIDING SCALE (NOVOLOG) 1 VIAL SQ SCH ×3 (06:29→17:03)
[2020-03-10] MEDS: INSULIN (LEVEMIR) 100 UNITS/ML UNITS SQ SCH ×2 (06:30→22:03)
[2020-03-10 08:41] LABS: BASO % 1.3 % (0-2.0); EOS % 1.7 % (0-4.5); HEMATOCRIT 35.1 % (35.4-49); HEMOGLOBIN 12.1 GM/dL (11.7-16.9); LYMPH % 21.2 % (8-40); MCH 29.6 pg (25.7-33.7); MCHC 34.6 g/dl (32.0-35.9); MEAN CELL VOLUME 85.5 fl (80-96); MEAN PLT VOLUME 6.4 fl (7.5-11.1); MONO % 7.3 % (3.8-10.2); NEUT % 68.5 % (42.8-82.8); PLATELET COUNT 629 K/MM3 (134-434)
[2020-03-10] MEDS: HEPARIN NA (PORCINE) 5,000 UNITS/ML 1ML VIAL SQ SCH ×2 (09:12→22:04)
[2020-03-10 09:14] LABS: BLOOD UREA NITROGEN 12.3 mg/dL (7-18); CALCIUM 8.7 mg/dL (8.5-10.1); CREATININE 0.8 mg/dL (0.55-1.3); MAGNESIUM 2.4 mg/dL (1.8-2.4); PHOSPHOROUS 3.4 mg/dL (2.5-4.9); POTASSIUM 5.1 mmol/L (3.5-5.1)
[2020-03-10] MEDS: guaiFENesin/D-METHORPHAN HB 10 ML UNIT-DOSE CUPS PO PRN (09:18)
[2020-03-10] MEDS ORDERED: PT OWN MED DRAWER 7, Y5N ONE (12:07)
[2020-03-10] MEDS: VANCOMYCIN HCL 1,250 MG in DEXTROSE 5%-WATER - 250 ML IVPB SCH (12:49)
--- NOTE | 2020-03-10 13:15 | PN ---
Progress Note, Physician Chief Complaint: POD#7. No pain. - Current Medication List Current Medications: Active Medications Acetaminophen (Tylenol -) 650 mg PO Q4H PRN PRN Reason: PAIN LEVEL 6-10 Last Admin: 03/03/20 20:56 Dose: 650 mg Documented by: Guaifenesin (Robitussin Dm -) 5 ml PO Q6H PRN PRN Reason: COUGH Last Admin: 03/10/20 09:18 Dose: 5 ml Documented by: Heparin Sodium (Porcine) (Heparin -) 5,000 unit SQ BID [facility] Last Admin: 03/10/20 09:12 Dose: 5,000 unit Documented by: Piperacillin Sod/Tazobactam (Sod 3.375 gm/ Dextrose) 50 mls @ 100 mls/hr IVPB Q8H-IV [facility]; Protocol Last Admin: 03/10/20 09:12 Dose: 100 mls/hr Documented by: Vancomycin HCl 1,250 mg/ (Dextrose) 250 mls @ 250 mls/2 hr IVPB Q24H [facility]; Protocol Last Admin: 03/10/20 12:49 Dose: 250 mls/2 hr Documented by: Insulin Aspart (Novolog Vial Sliding Scale -) 1 vial SQ TIDAC [facility]; Protocol Last Admin: 03/10/20 12:02 Dose: 4 units Documented by: Insulin Aspart (Novolog Vial) 5 units SQ TIDAC [facility]; Protocol Last Admin: 03/10/20 12:03 Dose: 5 units Documented by: Insulin Detemir (Levemir Vial) 30 units SQ BID@0700,2200 [facility] Last Admin: 03/10/20 06:30 Dose: 30 units Documented by: - Objective Vital Signs: Vital Signs Temperature 98.9 F 03/10/20 05:40 Pulse Rate 88 03/10/20 05:40 Respiratory Rate 20 03/10/20 09:00 Blood Pressure 119/65 03/10/20 05:40 O2 Sat by Pulse Oximetry (%) 97 03/10/20 09:00 Wound/Incision: Yes: Other (+granulating wound, +minimal improvement of cellulitis, -drainage upon pressure plantar and from medial to lateral) Labs: CBC, BMP 03/10/20 07:45 03/10/20 07:45 INR, PTT INR 1.16 (0.83-1.09) H 03/02/20 21:20 Assessment/Plan pod#7 cellulitis/erythema Betadine dressing change. WBC improved. Will follow. IVABX as per ID. Rest as per team.
--- NOTE | 2020-03-10 14:12 | PN ---
Physical Exam: SUBJECTIVE: Patient seen and examined. Denies any fever, chills, foot pain. OBJECTIVE: Vital Signs Period Temp Pulse Resp BP Sys/Oliver Pulse Ox Last 24 Hr 98.5 F-99.3 F 77-88 14-20 119-130/65-86 96-98 GENERAL: The patient is awake, alert, and fully oriented, in no acute distress. HEAD: Normal with no signs of trauma. EYES: PERRL, extraocular movements intact, sclera anicteric, conjunctiva clear. No ptosis. ENT: Ears normal, nares patent, oropharynx clear without exudates, moist mucous membranes. NECK: Trachea midline, full range of motion, supple. LUNGS: Breath sounds equal, clear to auscultation bilaterally, no wheezes, no crackles, no accessory muscle use. HEART: Regular rate and rhythm, S1, S2 without murmur, rub or gallop. ABDOMEN: Soft, nontender, nondistended, normoactive bowel sounds, no guarding, no rebound, no hepatosplenomegaly, no masses. EXTREMITIES: 2+ pulses, warm, well-perfused. Left 3rd toe amputated, dressed ,without tenderness. Erythema noted per ID and podiatry NEUROLOGICAL: Cranial nerves II through XII grossly intact. Normal speech, gait not observed. PSYCH: Normal mood, normal affect. SKIN: Warm, dry, normal turgor, no rashes or lesions noted Laboratory Results - last 24 hr 03/09/20 03/09/20 03/10/20 16:50 21:49 06:26 WBC RBC Hgb Hct MCV MCH MCHC RDW Plt Count MPV Absolute Neuts (auto) Neutrophils % Lymphocytes % Monocytes % Eosinophils % Basophils % Nucleated RBC % Sodium Potassium Chloride Carbon Dioxide Anion Gap BUN Creatinine Est GFR (CKD-EPI)AfAm Est GFR (CKD-EPI)NonAf POC Glucometer 197 236 217 Random Glucose Calcium Phosphorus Magnesium 03/10/20 03/10/20 03/10/20 07:45 07:45 10:47 WBC 9.0 RBC 4.10 Hgb 12.1 Hct 35.1 L MCV 85.5 MCH 29.6 MCHC 34.6 RDW 13.0 Plt Count 629 H MPV 6.4 L Absolute Neuts (auto) 6.2 Neutrophils % 68.5 Lymphocytes % 21.2 Monocytes % 7.3 Eosinophils % 1.7 Basophils % 1.3 Nucleated RBC % 0 Sodium 138 Potassium 5.1 Chloride 103 Carbon Dioxide 30 Anion Gap 5 L BUN 12.3 Creatinine 0.8 Est GFR (CKD-EPI)AfAm 116.56 Est GFR (CKD-EPI)NonAf 100.57 POC Glucometer 209 Random Glucose 178 H Calcium 8.7 Phosphorus 3.4 Magnesium 2.4 Active Medications Generic Name Dose Route Start Last Admin Trade Name Freq PRN Reason Stop Dose Admin Acetaminophen 650 mg 03/03/20 12:13 03/03/20 20:56 Tylenol - PO 650 mg Q4H PRN Administration PAIN LEVEL 6-10 Guaifenesin 5 ml 03/08/20 22:59 03/10/20 09:18 Robitussin Dm - PO 5 ml Q6H PRN Administration COUGH Heparin Sodium (Porcine) 5,000 unit 03/06/20 22:00 03/10/20 09:12 Heparin - SQ 5,000 unit BID WILLIAM Administration Piperacillin Sod/Tazobactam 50 mls @ 100 mls/hr 03/03/20 18:00 03/10/20 09:12 Sod 3.375 gm/ Dextrose IVPB 100 mls/hr Q8H-IV [facility]IAM Administration Protocol Vancomycin HCl 1,250 mg/ 250 mls @ 250 mls/2 hr 03/08/20 13:30 03/10/20 12:49 Dextrose IVPB 250 mls/2 hr Q24H [facility] Administration Protocol Insulin Aspart 1 vial 03/03/20 16:30 03/10/20 12:02 Novolog Vial Sliding Scale - SQ 4 units TIDAC [facility] Administration Protocol Insulin Aspart 5 units 03/04/20 11:00 03/10/20 12:03 Novolog Vial SQ 5 units TIDAC [facility] Administration Protocol Insulin Detemir 30 units 03/07/20 22:00 03/10/20 06:30 Levemir Vial SQ 30 units BID@0700,2200 [facility] Administration ASSESSMENT/PLAN: Pt is a 54 year old male with PMHx of DM, neuropathy, HLD 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 POD 2 L 3rd toe amputation #Sepsis 2/2 to L 3rd toe gangrene and cellulitis -s/p amputation L 3rd toe -surgical path report showing gangrenous necrosis with severe acute and chronic inflammation, +abscess, margin+ acute OM extending to margin -Leukocytosis 10.4 -ID consulted; on zosyn day 9, vanc day 3 -Podiatry consults appreciated; -vascular consulted, no intervention at this time -plan per podiatry and ID; continue antibiotics -culture growing group B strep and stag coagulase negative #DM -uncontrolled DM, 547 bG on admission, 14.4 A1c -SSI, BGM; on 30u levemir BID and novolog 5u TIDAC #HLD -newly diagnosed -begin statin on dc FEN No standing fluids Monitor electrolytes Diabetic/sodium controlled diet Dispo Med surg. L 3rd toe Amputation POD6. On zosyn and vanc. ATTENDING PHYSICIAN STATEMENT I saw and evaluated the patient. I reviewed the resident's note and discussed the case with the resident. I agree with the resident's findings and plan as documented. SUBJECTIVE: OBJECTIVE: ASSESSMENT AND PLAN:
--- NOTE | 2020-03-10 15:05 | PN ---
Teaching Attending Note Name of Resident: Isaac Mejia ATTENDING PHYSICIAN STATEMENT I saw and evaluated the patient. I reviewed the resident's note and discussed the case with the resident. I agree with the resident's findings and plan as documented. SUBJECTIVE: Feeling well, pain improved. Fever resolved OBJECTIVE: Tmax 99.7, Hemodynamically stable. Last Vital Signs Temp Pulse Resp BP Pulse Ox 99.7 F H 87 18 154/86 97 03/10/20 14:30 03/10/20 14:30 03/10/20 14:30 03/10/20 14:30 03/10/20 11:00 Heart - S1, S2, SM Lungs - clear to auscultation Abdomen - Soft, non-tender. Bowel Sounds normal. Extremities - L foot amputation site dressed, no calf tenderness. Neuro - AAO x 3. Tone/Power normal. Laboratory Results - last 24 hr 03/09/20 03/09/20 03/10/20 16:50 21:49 06:26 WBC RBC Hgb Hct MCV MCH MCHC RDW Plt Count MPV Absolute Neuts (auto) Neutrophils % Lymphocytes % Monocytes % Eosinophils % Basophils % Nucleated RBC % Sodium Potassium Chloride Carbon Dioxide Anion Gap BUN Creatinine Est GFR (CKD-EPI)AfAm Est GFR (CKD-EPI)NonAf POC Glucometer 197 236 217 Random Glucose Calcium Phosphorus Magnesium 03/10/20 03/10/20 03/10/20 07:45 07:45 10:47 WBC 9.0 RBC 4.10 Hgb 12.1 Hct 35.1 L MCV 85.5 MCH 29.6 MCHC 34.6 RDW 13.0 Plt Count 629 H MPV 6.4 L Absolute Neuts (auto) 6.2 Neutrophils % 68.5 Lymphocytes % 21.2 Monocytes % 7.3 Eosinophils % 1.7 Basophils % 1.3 Nucleated RBC % 0 Sodium 138 Potassium 5.1 Chloride 103 Carbon Dioxide 30 Anion Gap 5 L BUN 12.3 Creatinine 0.8 Est GFR (CKD-EPI)AfAm 116.56 Est GFR (CKD-EPI)NonAf 100.57 POC Glucometer 209 Random Glucose 178 H Calcium 8.7 Phosphorus 3.4 Magnesium 2.4 Current Medications Generic Name Dose Route Start Last Admin Trade Name Freq PRN Reason Stop Dose Admin Acetaminophen 650 mg 03/03/20 12:13 03/03/20 20:56 Tylenol - PO 650 mg Q4H PRN Administration PAIN LEVEL 6-10 Guaifenesin 5 ml 03/08/20 22:59 03/10/20 09:18 Robitussin Dm - PO 5 ml Q6H PRN Administration COUGH Heparin Sodium (Porcine) 5,000 unit 03/06/20 22:00 03/10/20 09:12 Heparin - SQ 5,000 unit BID [facility] Administration Piperacillin Sod/Tazobactam 50 mls @ 100 mls/hr 03/03/20 18:00 03/10/20 09:12 Sod 3.375 gm/ Dextrose IVPB 100 mls/hr Q8H-IV [facility] Administration Protocol Vancomycin HCl 1,250 mg/ 250 mls @ 250 mls/2 hr 03/08/20 13:30 03/10/20 12:49 Dextrose IVPB 250 mls/2 hr Q24H [facility] Administration Protocol Insulin Aspart 1 vial 03/03/20 16:30 03/10/20 12:02 Novolog Vial Sliding Scale - SQ 4 units TIDAC [facility] Administration Protocol Insulin Aspart 5 units 03/04/20 11:00 03/10/20 12:03 Novolog Vial SQ 5 units TIDAC [facility] Administration Protocol Insulin Detemir 30 units 03/07/20 22:00 03/10/20 06:30 Levemir Vial SQ 30 units BID@0700,2200 [facility] Administration Home Medications Medication Instructions Recorded metFORMIN HCL [Glucophage] 1,000 mg PO BID 12/01/13 Glipizide 5 mg PO BID 03/02/20 ASSESSMENT AND PLAN: 54 year old male with DM 2, neuropathy, and HLD, referred to ED by Podiatry for 3rd toe gangrene/cellulitis, failed out-patient therapy. 1. Sepsis secondary to L 3rd toe Gangrene/Cellulitis/Osteomyelitis Fever resolved POD 7 s/p L 3rd toe amputation, POD 2 s/p retention suture removal for surgical site decompression Surgical pathology report - gangrenous necrosis with osteomyelitis changes extending to margin Surgical Cx - Strep agalatiae, coag neg Staph Continue Zosyn/Vancomycin by ID - awaiting ID recs regarding ongoing Abx therapy Podiatry following 2. DM 2 - Maintain on Levemir and Novolog sliding scale. DVT Px - Heparin SQ
[2020-03-11 07:27] LABS: BASO % 1.4 % (0-2.0); EOS % 1.6 % (0-4.5); HEMATOCRIT 38.2 % (35.4-49); LYMPH % 22.3 % (8-40); MCH 28.9 pg (25.7-33.7); MEAN PLT VOLUME 6.1 fl (7.5-11.1); MONO % 6.6 % (3.8-10.2); NEUT % 68.1 % (42.8-82.8); PLATELET COUNT 677 K/MM3 (134-434); RBC 4.49 M/mm3 (4.00-5.60); RDW 13.2 % (11.9-15.9); WHITE BLOOD COUNT 8.4 K/mm3 (4.0-10.0)
[2020-03-11] MEDS: INSULIN (LEVEMIR) 100 UNITS/ML UNITS SQ SCH (07:29)
[2020-03-11] MEDS: INSULIN (NOVOLOG) ASPART 100 UNITS/ML 10ML VIAL SQ SCH ×2 (07:29→11:53)
[2020-03-11] MEDS: INSULIN SLIDING SCALE (NOVOLOG) 1 VIAL SQ SCH ×2 (07:31→11:52)
[2020-03-11 07:59] LABS: ALBUMIN 2.1 g/dl (3.4-5.0); BILIRUBIN,TOTAL 0.2 mg/dL (0.2-1); BLOOD UREA NITROGEN 14.5 mg/dL (7-18); CALCIUM 8.8 mg/dL (8.5-10.1); CREATININE 0.9 mg/dL (0.55-1.3); MAGNESIUM 2.3 mg/dL (1.8-2.4); PHOSPHOROUS 3.6 mg/dL (2.5-4.9); POTASSIUM 4.7 mmol/L (3.5-5.1); TOT PROT 6.4 g/dl (6.4-8.2)
[2020-03-11] MEDS: HEPARIN NA (PORCINE) 5,000 UNITS/ML 1ML VIAL SQ SCH (11:53)
--- NOTE | 2020-03-11 12:24 | PN ---
Progress Note, Physician History of Present Illness: no issues leg is still red - Current Medication List Current Medications: Active Medications Acetaminophen (Tylenol -) 650 mg PO Q4H PRN PRN Reason: PAIN LEVEL 6-10 Last Admin: 03/03/20 20:56 Dose: 650 mg Documented by: Guaifenesin (Robitussin Dm -) 5 ml PO Q6H PRN PRN Reason: COUGH Last Admin: 03/10/20 09:18 Dose: 5 ml Documented by: Heparin Sodium (Porcine) (Heparin -) 5,000 unit SQ BID [facility] Last Admin: 03/11/20 11:53 Dose: 5,000 unit Documented by: Vancomycin HCl 1,250 mg/ (Dextrose) 250 mls @ 250 mls/2 hr IVPB Q24H [facility]; [facility] Last Admin: 03/10/20 12:49 Dose: 250 mls/2 hr Documented by: Insulin Aspart (Novolog Vial Sliding Scale -) 1 vial SQ TIDAC [facility]; Protocol Last Admin: 03/11/20 11:52 Dose: 2 units Documented by: Insulin Aspart (Novolog Vial) 5 units SQ TIDAC [facility]; Protocol Last Admin: 03/11/20 11:53 Dose: 5 units Documented by: Insulin Detemir (Levemir Vial) 30 units SQ BID@0700,2200 [facility] Last Admin: 03/11/20 07:29 Dose: 30 units Documented by: - Objective Vital Signs: Vital Signs Temperature 98.3 F 03/11/20 06:00 Pulse Rate 85 03/11/20 06:00 Respiratory Rate 18 03/11/20 09:00 Blood Pressure 116/72 03/11/20 06:00 O2 Sat by Pulse Oximetry (%) 98 03/11/20 09:00 Constitutional: Yes: No Distress, Calm Cardiovascular: Yes: S1, S2 Respiratory: Yes: Regular, CTA Bilaterally Gastrointestinal: Yes: Normal Bowel Sounds, Soft Musculoskeletal: Yes: WNL Extremities: Yes: Other Wound/Incision: Yes: Dressing Dry and Intact Neurological: Yes: Alert, Oriented Psychiatric: Yes: Alert, Oriented Labs: CBC, BMP 03/11/20 07:13 03/11/20 07:13 INR, PTT INR 1.16 (0.83-1.09) H 03/02/20 21:20 Assessment/Plan 54 M L foot gangrene Uncontrolled T2Dm with hyperglycemia HTN HLD Active smoker plan abx as planned rest as per the team
[2020-03-11] MEDS ORDERED: PT OWN MED DRAWER 7, Y5N ONE (14:25)
[2020-03-11 14:33] VITALS: BP 139/94; PULSE 89; TEMP 98.5
[2020-03-11] MEDS: VANCOMYCIN HCL 1,250 MG in DEXTROSE 5%-WATER - 250 ML IVPB SCH (14:38)
--- NOTE | 2020-03-11 14:45 | DS ---
Physical Exam: SUBJECTIVE: Patient seen and examined OBJECTIVE: Vital Signs Period Temp Pulse Resp BP Sys/Oliver Pulse Ox Last 24 Hr 98.3 F-99.2 F 85-94 18-18 116-140/72-94 96-98 PHYSICAL EXAM GENERAL: The patient is awake, alert, and fully oriented, in no acute distress. HEAD: Normal with no signs of trauma. EYES: PERRL, extraocular movements intact, sclera anicteric, conjunctiva clear. ENT: Ears normal, nares patent, oropharynx clear without exudates, moist mucous membranes. NECK: Trachea midline, full range of motion, supple. LUNGS: Breath sounds equal, clear to auscultation bilaterally, no wheezes, no crackles, no accessory muscle use. HEART: Regular rate and rhythm, S1, S2 without murmur, rub or gallop. ABDOMEN: Soft, nontender, nondistended, normoactive bowel sounds, no guarding, no rebound, no hepatosplenomegaly, no masses. EXTREMITIES: 2+ pulses, warm, well-perfused, no edema. NEUROLOGICAL: Cranial nerves II through XII grossly intact. Normal speech, gait not observed. PSYCH: Normal mood, normal affect. SKIN: Warm, dry, normal turgor, no rashes or lesions noted. LABS Laboratory Results - last 24 hr 03/10/20 03/10/20 03/11/20 16:48 22:01 07:13 WBC RBC Hgb Hct MCV MCH MCHC RDW Plt Count MPV Absolute Neuts (auto) Neutrophils % Lymphocytes % Monocytes % Eosinophils % Basophils % Nucleated RBC % Sodium 136 Potassium 4.7 Chloride 101 Carbon Dioxide 31 Anion Gap 4 L BUN 14.5 Creatinine 0.9 Est GFR (CKD-EPI)AfAm 111.05 Est GFR (CKD-EPI)NonAf 95.81 POC Glucometer 238 202 Random Glucose 241 H Calcium 8.8 Phosphorus 3.6 Magnesium 2.3 Total Bilirubin 0.2 AST 7 L ALT 16 Alkaline Phosphatase 213 H Total Protein 6.4 Albumin 2.1 L 03/11/20 03/11/20 03/11/20 07:13 07:29 11:46 WBC 8.4 RBC 4.49 Hgb 13.0 Hct 38.2 MCV 85.0 MCH 28.9 MCHC 34.0 RDW 13.2 Plt Count 677 H MPV 6.1 L Absolute Neuts (auto) 5.7 Neutrophils % 68.1 Lymphocytes % 22.3 Monocytes % 6.6 Eosinophils % 1.6 Basophils % 1.4 Nucleated RBC % 0 Sodium Potassium Chloride Carbon Dioxide Anion Gap BUN Creatinine Est GFR (CKD-EPI)AfAm Est GFR (CKD-EPI)NonAf POC Glucometer 237 191 Random Glucose Calcium Phosphorus Magnesium Total Bilirubin AST ALT Alkaline Phosphatase Total Protein Albumin HOSPITAL COURSE: Date of Admission:03/01/20 Date of Discharge: 03/11/20 Minutes to complete discharge: 36 Discharge Summary Problems reviewed: Yes Reason For Visit: ULCERATIVE LESION,GANGRENE Current Active Problems Gangrene (Acute) Condition: Improved - Instructions Diet, Activity, Other Instructions: You came to the hospital because your left 3rd toe turned black, with surround redness and swelling. The infection had spread into the bones as well. You received IV antibiotics, and had an amputation to remove the toe by the ventilating engineer. You had an IV line placed so that you can continue to recieve IV antibiotics. You will need to continue to receive IV medications through this for 6 weeks. Medications Please START daily Vancomycin with the visiting nurse to your home via the PICC line for 6 weeks. Follow-up appointments 1. Primary care physician, Dr. Richey, in 1 week for overall health care management. 2. Customer Experience Professional, Dr. Wade, in 2 weeks for follow up on your amputated toe. 3. Wound care doctor, Dr. Schilling, in 2 weeks for follow up on your amputated toe. 4. Infectious disease doctor, Dr. Mosquera, for the infection surrounding your amputated toe. If you have any new, worsening or changing symptoms please return to the ED or call 911. Referrals: Shereen Mosquera MD [Staff Physician] - 2 Weeks Gayathri Richey MD [Primary Care Provider] - 1 Week Avi Schilling DO [Staff Physician] - 2 Weeks Saul Wade DPM [Staff Physician] - 2 Weeks Disposition: HOME - Home Medications Comprehensive Discharge Medication List: Ambulatory Orders metFORMIN HCL [Glucophage] 1,000 mg PO BID 12/01/13 Glipizide 5 mg PO BID 03/02/20 - Discharge Referral Referred to [facility] No ATTENDING PHYSICIAN STATEMENT I saw and evaluated the patient. I reviewed the resident's note and discussed the case with the resident. I agree with the resident's findings and plan as documented. SUBJECTIVE: OBJECTIVE: ASSESSMENT AND PLAN:
--- NOTE | 2020-03-11 16:00 | PN ---
Progress Note, Physician Chief Complaint: Pt being dc today with IVABX to home. - Current Medication List Current Medications: Active Medications Acetaminophen (Tylenol -) 650 mg PO Q4H PRN PRN Reason: PAIN LEVEL 6-10 Last Admin: 03/03/20 20:56 Dose: 650 mg Documented by: Guaifenesin (Robitussin Dm -) 5 ml PO Q6H PRN PRN Reason: COUGH Last Admin: 03/10/20 09:18 Dose: 5 ml Documented by: Heparin Sodium (Porcine) (Heparin -) 5,000 unit SQ BID [facility] Last Admin: 03/11/20 11:53 Dose: 5,000 unit Documented by: Vancomycin HCl 1,250 mg/ (Dextrose) 250 mls @ 250 mls/2 hr IVPB Q24H [facility]; Pr otocol Last Admin: 03/11/20 14:38 Dose: 250 mls/2 hr Documented by: Insulin Aspart (Novolog Vial Sliding Scale -) 1 vial SQ TIDAC [facility]; Protocol Last Admin: 03/11/20 11:52 Dose: 2 units Documented by: Insulin Aspart (Novolog Vial) 5 units SQ TIDAC [facility]; Protocol Last Admin: 03/11/20 11:53 Dose: 5 units Documented by: Insulin Detemir (Levemir Vial) 30 units SQ BID@0700,2200 [facility] Last Admin: 03/11/20 07:29 Dose: 30 units Documented by: - Objective Vital Signs: Vital Signs Temperature 98.5 F 03/11/20 14:31 Pulse Rate 89 03/11/20 14:31 Respiratory Rate 18 03/11/20 14:31 Blood Pressure 139/94 03/11/20 14:31 O2 Sat by Pulse Oximetry (%) 98 03/11/20 09:00 Wound/Incision: Yes: Other (+granulating wound left, +improving cellulitis, +grade 2 wound amputation site) Labs: CBC, BMP 03/11/20 07:13 03/11/20 07:13 INR, PTT INR 1.16 (0.83-1.09) H 03/02/20 21:20 Assessment/Plan pod#8 cellulitis/erythema improved Betadine dressing change today. WBC improved. Regranex to wound at home daily. Follow up in [facility]. IVABX as per ID. Call if any problems or questions out patient. Post op shoe left foot. VNS to home.
--- NOTE | 2020-03-11 17:05 | PN ---
Teaching Attending Note Name of Resident: Isaac Mejia ATTENDING PHYSICIAN STATEMENT I saw and evaluated the patient. I reviewed the resident's note and discussed the case with the resident. I agree with the resident's findings and plan as documented. SUBJECTIVE: Feeling well, pain improved. Fever resolved OBJECTIVE: Tmax 99.7 yesterday, afebrile overnight, Hemodynamically stable. Last Vital Signs Temp Pulse Resp BP Pulse Ox 98.5 F 89 18 139/94 98 03/11/20 14:31 03/11/20 14:31 03/11/20 14:31 03/11/20 14:31 03/11/20 09:00 Heart - S1, S2, SM Lungs - clear to auscultation Abdomen - Soft, non-tender. Bowel Sounds normal. Extremities - L foot amputation site dressed, no calf tenderness. Neuro - AAO x 3. Tone/Power normal. Laboratory Results - last 24 hr 03/10/20 03/11/20 03/11/20 22:01 07:13 07:13 WBC 8.4 RBC 4.49 Hgb 13.0 Hct 38.2 MCV 85.0 MCH 28.9 MCHC 34.0 RDW 13.2 Plt Count 677 H MPV 6.1 L Absolute Neuts (auto) 5.7 Neutrophils % 68.1 Lymphocytes % 22.3 Monocytes % 6.6 Eosinophils % 1.6 Basophils % 1.4 Nucleated RBC % 0 Sodium 136 Potassium 4.7 Chloride 101 Carbon Dioxide 31 Anion Gap 4 L BUN 14.5 Creatinine 0.9 Est GFR (CKD-EPI)AfAm 111.05 Est GFR (CKD-EPI)NonAf 95.81 POC Glucometer 202 Random Glucose 241 H Calcium 8.8 Phosphorus 3.6 Magnesium 2.3 Total Bilirubin 0.2 AST 7 L ALT 16 Alkaline Phosphatase 213 H Total Protein 6.4 Albumin 2.1 L 03/11/20 03/11/20 07:29 11:46 WBC RBC Hgb Hct MCV MCH MCHC RDW Plt Count MPV Absolute Neuts (auto) Neutrophils % Lymphocytes % Monocytes % Eosinophils % Basophils % Nucleated RBC % Sodium Potassium Chloride Carbon Dioxide Anion Gap BUN Creatinine Est GFR (CKD-EPI)AfAm Est GFR (CKD-EPI)NonAf POC Glucometer 237 191 Random Glucose Calcium Phosphorus Magnesium Total Bilirubin AST ALT Alkaline Phosphatase Total Protein Albumin Current Medications Generic Name Dose Route Start Last Admin Trade Name Freq PRN Reason Stop Dose Admin Acetaminophen 650 mg 03/03/20 12:13 03/03/20 20:56 Tylenol - PO 650 mg Q4H PRN Administration PAIN LEVEL 6-10 Guaifenesin 5 ml 03/08/20 22:59 03/10/20 09:18 Robitussin Dm - PO 5 ml Q6H PRN Administration COUGH Heparin Sodium (Porcine) 5,000 unit 03/06/20 22:00 03/11/20 11:53 Heparin - SQ 5,000 unit BID WILLIAM Administration Vancomycin HCl 1,250 mg/ 250 mls @ 250 mls/2 hr 03/08/20 13:30 03/11/20 14:38 Dextrose IVPB 250 mls/2 hr Q24H WILLIAM Administration Protocol Insulin Aspart 1 vial 03/03/20 16:30 03/11/20 11:52 Novolog Vial Sliding Scale - SQ 2 units TIDAC [facility] Administration Protocol Insulin Aspart 5 units 03/04/20 11:00 03/11/20 11:53 Novolog Vial SQ 5 units TIDAC [facility] Administration Protocol Insulin Detemir 30 units 03/07/20 22:00 03/11/20 07:29 Levemir Vial SQ 30 units BID@0700,2200 WILLIAM Administration Discharge Medications Medication Instructions Recorded metFORMIN HCL [Glucophage] 1,000 mg PO BID 12/01/13 Glipizide 5 mg PO BID 03/02/20 Becaplermin [Regranex] 15 gm TP DAILY #1 gel..gram. 03/11/20 Vancomycin 1 Gram (Pre-Docked) 1,250 mg IVPB DAILY #1 bag 03/11/20 [Vancomycin (Pre-Docked)] ASSESSMENT AND PLAN: 54 year old male with DM 2, neuropathy, and HLD, referred to ED by Podiatry for 3rd toe gangrene/cellulitis, failed out-patient therapy. 1. Sepsis secondary to L 3rd toe Gangrene/Cellulitis/Osteomyelitis Fever resolved POD 8 s/p L 3rd toe amputation, POD 3 s/p retention suture removal for surgical site decompression Surgical pathology report - gangrenous necrosis with osteomyelitis changes extending to margin Surgical Cx - Strep agalatiae, coag neg Staph treated as in-patient with IV Zosyn/Vancomycin - for PICC and Dc on Vancomycin as per ID Podiatry to follow as out-patient - betadine dressing changed prior to DC today - Regranex to wound at home. Post op shoe/boot left foot. VNS at home 2. DM 2 - resume Metformin and Glipizide on discharge Medically and Surgically stable for discharge home with VNS, wound care, Podiatry follow up and IV Vanco via PICC
--- NOTE | 2020-03-20 09:43 | OP ---
DATE OF OPERATION: 03/03/2020 SURGEON: Saul Wade DPM [employer] MAGISTRATE: Agustin Munoz DPM PREOPERATIVE DIAGNOSIS: Gangrene, 3rd toe, left foot. POSTOPERATIVE DIAGNOSIS: Gangrene, 3rd toe, left foot. PROCEDURE: Amputation, left 3rd toe in toto. DESCRIPTION OF PROCEDURE: After noting all preoperative vital signs were within normal limits and after surgery consent was signed and witnessed, patient was brought to the OR, placed on the table in supine position. An IV line had been started prior to the patient coming to the OR. Once the patient was on the table, the foot was blocked with a Renteria block proximal to the 3rd metatarsophalangeal joint at the proximal third of the metatarsal shaft. Once the foot was anesthetized, a prep was then done with Betadine. Once the foot was prepped and draped, attention was directed to the 3rd metatarsophalangeal joint. Using a 15-blade, an incision was created around the 3rd metatarsophalangeal joint. This incision was deepened using sharp and blunt dissection. All unavoidable vessels were ligated in the usual fashion. All other neurovascular structures were retracted out of the surgical site. At this time, the toe was disarticulated from the 3rd metatarsal head. It was removed from the field and sent down to pathology. The area was then examined. There was no remaining necrotic tissue noted. The metatarsal head was intact. No signs of infection. A flush was then done with copious amounts of sterile saline that had antibiotic added to it. Once this was done, Iodoform packing was put into place. Retention sutures were put into place using 3-0 nylon in a simple interrupted fashion. Xeroform gauze, Betadine-soaked were applied. Sterile 4 x 4's and a conforming gauze dressing were applied to the left foot. Patient tolerated the anesthesia and the procedure well. Patient will return to recovery room, vital signs stable, neurovascular status intact. TAVON [id number]
== END 2020-03-11 17:39 | disposition home or self-care (01) | DRG 710 ==
LOC: JER 10:48 → JERBED 11:21 → J6S 16:13
PROC: 0Y6U0Z0 Detachment at Left 3rd Toe, Complete, Open Approach (ICD-10-PCS; principal; 2020-03-03 11:00)
PROC: 02HV33Z Insertion of Infusion Device into Superior Vena Cava, Percutaneous Approach (ICD-10-PCS; 2020-03-11)
DX: A41.9 Sepsis, unspecified organism (principal); L03.116 Cellulitis of left lower limb; I10 Essential (primary) hypertension; E78.5 Hyperlipidemia, unspecified; F17.210 Nicotine dependence, cigarettes, uncomplicated; N40.0 Benign prostatic hyperplasia without lower urinary tract symptoms; E11.52 Type 2 diabetes mellitus with diabetic peripheral angiopathy with gangrene; E11.621 Type 2 diabetes mellitus with foot ulcer; I96 Gangrene, not elsewhere classified; E11.40 Type 2 diabetes mellitus with diabetic neuropathy, unspecified; E11.65 Type 2 diabetes mellitus with hyperglycemia
CPT/HCPCS: 36415; 36569; 71045-TC-FY; 73630-TC-LT; 73718-TC-LT; 75635-TC; 77001-TC-FY; 80048; 80053; 80061; 81003; 82962; 83036; 83721; 83735; 84100; 85025; 85610; 85651; 85730; 86140; 86850; 86900; 86901; 87040; 87070; 87077; 87205; 88305-TC; 88311-TC; 93005; 93010; 94010; 94760; 97116-GP; 97162-GP; 99285-25; C1751; J1644; U0003

== ENCOUNTER 2020-04-08 08:13 | Inpatient (IN) | payer OTHER ==
--- OUTSIDE RECORDS SUMMARY | 2020-04-08 08:29 | XMS ---
:1965 Author Organization [facility] Support Name Relationship Address Phone [facility] Unavailable [id number] [place] [address] [facility] [employer] [employer] Unavailable [address] [place] [address] ROSANA HOLMAN FRIEND [address] [facility] [address] [place] [address] Re-disclosure Warning The records that you are about to access may contain information from federally- assisted alcohol or drug abuse programs. If such information is present, then the following federally mandated warning applies: This information has been disclosed to you from records protected by federal confidentiality rules (42 CFR part 2). The federal rules prohibit you from making any further disclosure of this information unless further disclosure is expressly permitted by the written consent of the person to whom it pertains or as otherwise permitted by 42 CFR part 2. A general authorization for the release of medical or other information is NOT sufficient for this purpose. The Federal rules restrict any use of the information to criminally investigate or prosecute any alcohol or drug abuse patient.The records that you are about to access may contain highly sensitive health information, the redisclosure of which is protected by Article 27-F of the [facility] Public Health law. If you continue you may haveaccess to information: Regarding HIV / AIDS; Provided by facilities licensed or operated by the [facility] Office of Mental Health; or Provided by the [facility] Office for People With Developmental Disabilities. If such information is present, then the following [facility] mandated warning applies: This information has been disclosed to you from confidential records which are protected by state law. State law prohibits you from making any further disclosure of this information without the specific written consent of the person to whom it pertains, or as otherwise permitted by law. Any unauthorized further disclosure in violation of state law may result in a fine or half-way sentence or both. A general authorization for the release of medical or other information is NOT sufficient authorization for further disclosure. Insurance Providers Payer name Policy type Policy ID Covered Covered constitution party's Policy P adwoa / Coverage constitution party ID relationship to Cuevas Inf ormation type cuevas KELVIN [id number] 100 HEALTH NON CAP DITTMER [id number] 1 HEALTH PLANS Results ID Date Data Source [id number] 03/18/2020 02:25:00 PM EDT [facility] Name Value Range Interpretation Description Data Sup porting Code Source(s) Document(s ) SARS [facility] coronavirus 2 RNA This lab was ordered by [facility] and reported by [facility]. ID Date Data Source [id number] 03/01/2020 11:50:00 AM EDT [facility] Name Value Range Interpretation Description Data Sup porting Code Source(s) Document(s ) SARS [facility] coronavirus 2 RNA This lab was ordered by [facility] and reported by [facility]. Procedure
[2020-04-08 08:39] VITALS: BMI 32.1
--- NOTE | 2020-04-08 09:13 | PDOC ---
History of Present Illness - General Chief Complaint: Lightheaded Stated Complaint: DIZZINESS Time Seen by Provider: 04/08/20 08:26 - History of Present Illness Initial Comments: Jeffry Ballesteros is a 54 y/o male with PMH significant for NIDDM, HTN, s/p left 2nd-5th toe amputation 2 weeks ago, presenting today with dizziness and leg weakness when standing. Also reports shoulder aches. Reports that this started yesterday and he hoped that it would improve on his own. Denies falls. No headache. No chest pain/shortness of breath. No abd pain. No back pain. No leg swelling. No dysuria/diarrhea. Past History - Medical History Allergies/Adverse Reactions: Allergies Allergy/AdvReac Type Severity Reaction Status Date / Time No Known Allergies Allergy Verified 04/08/20 08:39 Home Medications: Ambulatory Orders metFORMIN HCL [Glucophage] 1,000 mg PO BID 12/01/13 Ertapenem Sodium [Invanz -] 1 gm IVPB DAILY vial 03/25/20 Glipizide [Glucotrol -] 10 mg PO BID@0700,1630 #60 tablet 03/25/20 COPD: No Diabetes: Yes Hypercholesterolemia: Yes - Immunization History Immunization Up to Date: No - Psycho-Social/Smoking History Smoking Status: No Smoking History: Unknown if ever smoked Have you smoked in the past 12 months: No Number of Cigarettes Smoked Daily: 0 Review of Systems - Review of Systems Comments:: GENERAL/CONSTITUTIONAL: No fever or chills. Reports lower extremity weakness. HEAD, EYES, EARS, NOSE AND THROAT: No change in vision. No change in hearing. No sore throat._ CARDIOVASCULAR: No chest pain or shortness of breath_ RESPIRATORY: Denies cough, hemoptysis_ GASTROINTESTINAL: No nausea, vomiting, diarrhea or constipation._ GENITOURINARY: No dysuria, frequency, or change in urination._ MUSCULOSKELETAL: Reports shoulder muscle aches. SKIN: No rash_ NEUROLOGIC: Reports dizziness. No headache, loss of consciousness. ENDOCRINE: No increased thirst. No abnormal weight change_ ALLERGIC/IMMUNOLOGIC: No hives or skin allergy._ *Physical Exam - Vital Signs Last Vital Signs Temp Pulse Resp BP Pulse Ox 98.1 F 131 H 20 123/97 100 04/08/20 08:17 04/08/20 08:52 04/08/20 08:52 04/08/20 08:52 04/08/20 08:52 - Physical Exam GENERAL: Awake, alert, and oriented to person/place/time, in no acute distress_ HEAD: No signs of trauma, normocephalic, atraumatic _ EYES: PERRLA, EOMI, sclera anicteric, conjunctiva clear_ ENT: Hearing grossly normal, nares patent, oropharynx clear without exudates. No uvular deviation. Moist mucosa_ NECK: Normal ROM, supple, no lymphadenopathy, JVD, or masses_ LUNGS: No distress, speaks in full sentences, clear to auscultation bilaterally _ HEART: Regular rate and rhythm, normal S1 and S2, no murmurs appreciated, peripheral pulses normal and equal bilaterally._ ABDOMEN: Soft, nontender, normoactive bowel sounds. No guarding, no rebound. No masses_ EXTREMITIES: Normal range of motion, no edema. No clubbing or cyanosis LLE: 2nd to 5th digit amputation, incision clean and intact, +granulation tissue with no purulence, DP/PT pulses 2+. NEUROLOGICAL: Cranial nerves II through XII grossly intact. Normal speech, no focal sensorimotor deficits _ SKIN: Warm, Dry, normal turgor, no rashes or lesions noted_ ED Treatment Course - LABORATORY CBC & Chemistry Diagram: 04/08/20 09:53 04/08/20 09:53 - RADIOLOGY Radiology Studies Ordered: Category Date Time Status CHEST X-RAY PORTABLE* [RAD] Stat Radiology 04/08/20 08:47 Ordered Medical Decision Making - Medical Decision Making 54M hx of DM HTN s/p left 2-5 digit amputation, presenting today with dizziness and lower extremity weakness. No fall. BP labile from 70-180 systolic. -cbc, cmp -ekg, trop, cxr -coags -tsh -CT head 04/08/20 09:11 EKG shows 134 bpm, a-fib with RVR, QTc 456, no axis deviation, no ST elevation/depression. Compared to prior EKG pt was NSR on 2019. No hx of a-fib. Pt given 10 mg dilt IV. 04/08/20 09:23 CXR negative for acute intrathoracic pathology. 04/08/20 12:17 EKG #2 shows 118 bpm, atrial flutter, no axis deviation, QTc 468, no ST elevation/depression. Labs reviewed. Laboratory Last Values WBC 9.1 K/mm3 (4.0-10.0) 04/08/20 09:53 RBC 4.50 M/mm3 (4.00-5.60) 04/08/20 09:53 Hgb 12.6 GM/dL (11.7-16.9) 04/08/20 09:53 Hct 37.8 % (35.4-49) 04/08/20 09:53 MCV 83.9 fl (80-96) 04/08/20 09:53 MCH 27.9 pg (25.7-33.7) 04/08/20 09:53 MCHC 33.3 g/dl (32.0-35.9) 04/08/20 09:53 RDW 13.7 % (11.9-15.9) 04/08/20 09:53 Plt Count 298 K/MM3 (134-434) D 04/08/20 09:53 MPV 7.5 fl (7.5-11.1) 04/08/20 09:53 Absolute Neuts (auto) 6.8 K/mm3 (1.5-8.0) 04/08/20 09:53 Neutrophils % 74.1 % (42.8-82.8) 04/08/20 09:53 Lymphocytes % 19.8 % (8-40) 04/08/20 09:53 Monocytes % 4.4 % (3.8-10.2) 04/08/20 09:53 Eosinophils % 0.8 % (0-4.5) 04/08/20 09:53 Basophils % 0.9 % (0-2.0) 04/08/20 09:53 Nucleated RBC % 0 % (0-0) 04/08/20 09:53 PT with INR 12.10 SEC (9.7-13.0) 04/08/20 09:53 INR 0.98 (0.83-1.09) 04/08/20 09:53 PTT (Actin FS) 35.3 SECONDS (25.2-36.5) 04/08/20 09:53 Sodium 132 mmol/L (136-145) L 04/08/20 09:53 Potassium 4.9 mmol/L (3.5-5.1) 11/05/20 09:53 Chloride 98 mmol/L (98-107) 04/08/20 09:53 Carbon Dioxide 23 mmol/L (21-32) 04/08/20 09:53 Anion Gap 11 MMOL/L (8-16) 04/08/20 09:53 BUN 48.2 mg/dL (7-18) H 04/08/20 09:53 Creatinine 1.7 mg/dL (0.55-1.3) H 04/08/20 09:53 Est GFR (CKD-EPI)AfAm 51.47 04/08/20 09:53 Est GFR (CKD-EPI)NonAf 44.41 04/08/20 09:53 Random Glucose 368 mg/dL (74-106) H 04/08/20 09:53 Calcium 9.1 mg/dL (8.5-10.1) 04/08/20 09:53 Total Bilirubin 0.5 mg/dL (0.2-1) 04/08/20 09:53 AST 6 U/L (15-37) L 04/08/20 09:53 ALT 10 U/L (13-61) L 04/08/20 09:53 Alkaline Phosphatase 106 U/L (45-117) 04/08/20 09:53 Creatine Kinase 60 U/L (26-308) 04/08/20 09:53 Troponin I 0.17 ng/ml (0.00-0.05) H 04/08/20 09:53 Total Protein 6.2 g/dl (6.4-8.2) L 04/08/20 09:53 Albumin 2.7 g/dl (3.4-5.0) L 04/08/20 09:53 TSH 0.93 uIU/ml (0.358-3.74) 04/08/20 09:53 04/08/20 13:06 Pt reassessed. HR 107. Will give dilt PO 30 mg. 04/08/20 14:07 Pt reassessed. HR in the 140s, will give dilt 20 mg IV. 04/08/20 14:37 Pt reassessed. HR in the 80s. Case d/w Dr. Courtney who accepts the patient for admission. 04/08/20 14:43 Started on heparin drip per admitting team Dr. Valles and Dr. Courtney. 04/08/20 15:24 EKG #3 shows 77 bpm, atrial flutter, no axis deviation, QTc 430, no ST elevation/depression. Discharge - Discharge Information Problems reviewed: Yes Clinical Impression/Diagnosis: New onset a-fib Condition: Guarded - Admission Yes - Follow up/Referral - Patient Discharge Instructions - Post Discharge Activity
--- NOTE | 2020-04-08 09:51 | PDOC ---
Attending Attestation - Resident Resident Name: Vivian CárdenasAnival - ED Attending Attestation I have performed the following: I have examined & evaluated the patient, The case was reviewed & discussed with the resident, I agree w/resident's findings & plan, Exceptions are as noted - HPI HPI: 04/08/20 09:50 54M hx of NIDDM, htn, sp toe amputations x 2 (last one was 1 week ago) presents with complaint of lightheadedness. Patient states he has been feeling lightehaded since yesterday. Patient states he has been feeling well since his surgery however yesterday he felt lightheaded and when he tried to get out of bed he felt like his right leg was giving out on him. When he is ambulatory he feels lightheaded, slightly sob, generally weak. Patient denies any chest pain, shortness of breath at rest,n/v, abd pain, back pain, leg swelling, leg pain. Pt has a pICC line in place for iv abx PMD: Sheri - Physicial Exam PE: 04/08/20 10:14 Physical exam: GENERAL: The patient is awake, alert, and fully oriented, Nontoxic - in no acute distress. HEAD: Normocephalic, atraumatic. EYES: extraocular movements intact, sclera anicteric, conjunctiva clear. ENT: Normal voice, Moist mucous membranes. NECK: Normal range of motion, supple LUNGS: Breath sounds equal, clear to auscultation bilaterally. No wheezes, no rhonchi, no rales. HEART: irregularly irregular, tachycardic, no mrg ABDOMEN: Soft, nontender, No guarding, no rebound. No CVA tenderness EXTREMITIES: Normal range of motion, no edema. NEUROLOGICAL: No facial assymetry, Normal speech, Moving all 4 extremities spontaneously and symmetrically, sensation intact/symmetric PSYCH: Normal mood, normal affect. SKIN: Warm, Dry, normal turgor, - Critical Care Time Total Critical Care Time: 45 Critical Care Statement: The care of this patient involved high complexity decision making to prevent further life threatening deterioration of the patient's condition and/or to evaluate & treat vital organ system(s) failure or risk of failure. - Medical Decision Making 04/08/20 10:14 new onset afib will rate control with diltiazem bp low initially, however o reasessment, bp improved ?r leg giving out - no notable waekness - will obtain ct head anticipate admission 04/08/20 10:14 04/08/20 12:14 Pts HR improved to 111, appaers to be aflutter, bp normal, othrwis asypmtomatic 04/08/20 15:06 approx 2pm patient's heart rate was noted to increase back to the 140s after p.o. diltiazem. The patient was given 20 of diltiazem with improvement of his heart rate, most current EKG noted for a flutter at rate of 77. Heart Score/ECG Review - ECG Impressions Comment:: 04/08/20 10:15 Twelve-lead EKG was performed and reviewed by me. Irregularly irregular, rate of [address] wave changes suggestive of acute ischemia impression A. fib with RVR Discharge - Discharge Information Problems reviewed: Yes Clinical Impression/Diagnosis: New onset a-fib Condition: Guarded - Follow up/Referral - Patient Discharge Instructions - Post Discharge Activity
[2020-04-08 10:06] LABS: BASO % 0.9 % (0-2.0); EOS % 0.8 % (0-4.5); HEMATOCRIT 37.8 % (35.4-49); HEMOGLOBIN 12.6 GM/dL (11.7-16.9); LYMPH % 19.8 % (8-40); MCH 27.9 pg (25.7-33.7); MCHC 33.3 g/dl (32.0-35.9); MEAN CELL VOLUME 83.9 fl (80-96); MEAN PLT VOLUME 7.5 fl (7.5-11.1); MONO % 4.4 % (3.8-10.2); NEUT % 74.1 % (42.8-82.8); PLATELET COUNT 298 K/MM3 (134-434); RDW 13.7 % (11.9-15.9); WHITE BLOOD COUNT 9.1 K/mm3 (4.0-10.0)
[2020-04-08 10:14] LABS: INR 0.98 (0.83-1.09); PROTHROMBIN TIME (PATIENT) 12.1 SEC (9.7-13.0)
[2020-04-08 10:16] LABS: ACTIVATED PTT 35.3 SECONDS (25.2-36.5)
[2020-04-08 10:30] LABS: POTASSIUM 4.9 mmol/L (3.5-5.1)
[2020-04-08 10:32] LABS: ALBUMIN 2.7 g/dl (3.4-5.0); BLOOD UREA NITROGEN 48.2 mg/dL (7-18)
[2020-04-08 10:35] LABS: CREATININE 1.7 mg/dL (0.55-1.3)
[2020-04-08 10:37] LABS: BILIRUBIN,TOTAL 0.5 mg/dL (0.2-1); TOT PROT 6.2 g/dl (6.4-8.2)
[2020-04-08] MEDS ORDERED: dilTIAZem HCL 50 MG/10 ML - 10 ML VIAL IVPUSH ONE ×2 (10:51→14:07)
[2020-04-08] MEDS ORDERED: dilTIAZem HCL 125 MG/25 ML - 25 ML VIAL ONE ×2 (11:03→14:08)
[2020-04-08] MEDS ORDERED: ASPIRIN 81 MG CHEWABLE TABLETS PO ONE (11:03)
[2020-04-08 11:32] LABS: CALCIUM 9.1 mg/dL (8.5-10.1)
[2020-04-08] MEDS ORDERED: dilTIAZem HCL 30 MG TABLET PO ONE (13:05)
[2020-04-08] MEDS ORDERED: dilTIAZem HCL 30 MG TABLET ONE (13:19)
[2020-04-08] MEDS ORDERED: ASPIRIN 81 MG CHEWABLE TABLETS ONE (13:19)
[2020-04-08] MEDS ORDERED: HEPARIN NA (PORCINE) 5,000 UNITS/ML 1ML VIAL IVPUSH PRN (14:41)
[2020-04-08] MEDS ORDERED: HEPARIN - 25,000 UNIT in SODIUM CHLORIDE 495 ML IV SCH (14:45)
[2020-04-08] MEDS ORDERED: dilTIAZem HCL 25 MG/5 ML - 5 ML VIAL IVPUSH PRN (14:57)
[2020-04-08] MEDS ORDERED: HEPARIN INFUSION - 25,000 UNITS/500 ML INFUS.BAG IVPB ONE (15:12)
--- OUTSIDE RECORDS SUMMARY | 2020-04-08 15:14 | XMS ---
:1965 Author Organization [facility] Support Name Relationship Address Phone [facility] Unavailable [id number] [place] [address] [facility] CNETER Unavailable [address] [place] [address] ROSANA HOLMAN FRIEND [address] [facility] [address] [place] [address] Re-disclosure Warning The records that you are [...] is protected by Article 27-F of the [place] Public Health law. If you continue you may haveaccess to information: Regarding HIV / AIDS; Provided by facilities licensed or operated by the [place] [facility] Office of Mental Health; or Provided by the [facility] Office for People With Developmental Disabilities. If such information is present, then the following [facility] [facility] mandated warning applies: This information has been [...] law may result in a fine or fci sentence or both. A general authorization for the release of medical or other information is NOT sufficient authorization for further disclosure. Insurance Providers Payer name Policy type Policy ID Covered Covered green party's Policy P adwoa / Coverage green party ID relationship to [employer] Inf ormation type cuevas KELVIN [id number] 100 HEALTH NON CAP [place] [id number] 1 HEALTH PLANS Results ID Date Data Source [id number] 03/18/2020 02:25:00 PM EDT [facility] Name Value Range Interpretation Description Data Sup porting Code Source(s) Document(s ) SARS [facility] coronavirus 2 RNA This lab was ordered by [facility] and reported by [facility]. ID Date Data Source [id number] 03/01/2020 11:50:00 AM EDT [facility] Name Value Range Interpretation Description Data Sup porting Code Source(s) Document(s ) SARS [facility] coronavirus 2 RNA This lab was ordered by [facility] and reported by [facility]. Procedure
[2020-04-08] MEDS: SODIUM CHLORIDE 1,000 ML IV SCH (15:28)
--- NOTE | 2020-04-08 15:53 | HP ---
CHIEF COMPLAINT: lightheadedness PCP: Dr. Richey HISTORY OF PRESENT ILLNESS: Patient is a 54 year old male with past medical history of HTN, DM, Left foot cellulitis, OM s/p left 3rd toe amputation presented to the ED for lightheadedness for 2 days. Patient reported he started feeling lightheaded starting yesterday. Since he was discharged last month, patient was feeling good, until yesterday when he started feeling lightheaded. This was accompanied by right leg weakness that he needed assistance while walking. Patient denies any recent illness of sick contacts. Denies fevers, chills, headache, chest pain, SOB, palpitations, abdominal pain, diarrhea, urinary symptoms. Of note, patient was discharged 03/25 s/p amputation and sent home on a PICC line to continue 2 weeks of IV ertapenem (reported last day today). At the ED, patient was found to be tachycardic at the 140s. EKG revealed Afib/Aflutter. He received 30mg IV push and 30mg PO Cardizem, and repeat EKG revealed Aflutter with HR of 77. Recent Travel: denies PAST MEDICAL HISTORY: HTN DM Left foot cellulitis s/p amputation PAST SURGICAL HISTORY: R arm lac at age 7 Left 3rd toe amputation Social History: Smoking:denies Alcohol:denies Drugs: denies Allergies No Known Allergies Allergy (Verified 04/08/20 08:39) HOME MEDICATIONS: Home Medications Medication Instructions Recorded metFORMIN HCL [Glucophage] 1,000 mg PO BID 12/01/13 Ertapenem Sodium [Invanz -] 1 gm IVPB DAILY vial 03/25/20 Glipizide [Glucotrol -] 10 mg PO BID@0700,1630 #60 tablet 03/25/20 REVIEW OF SYSTEMS CONSTITUTIONAL: Absent: fever, chills, diaphoresis, generalized weakness, malaise, loss of appetite, weight change HEENT: Absent: rhinorrhea, nasal congestion, throat pain, throat swelling, difficulty swallowing, mouth swelling, ear pain, eye pain, visual changes CARDIOVASCULAR: lightheadedness Absent: chest pain, syncope, palpitations, irregular heart rate,peripheral edema RESPIRATORY: Absent: cough, shortness of breath, dyspnea with exertion, orthopnea, wheezing, stridor, hemoptysis GASTROINTESTINAL: Absent: abdominal pain, abdominal distension, nausea, vomiting, diarrhea, constipation, melena, hematochezia GENITOURINARY: Absent: dysuria, frequency, urgency, hesitancy, hematuria, flank pain, genital pain MUSCULOSKELETAL: Absent: myalgia, arthralgia, joint swelling, back pain, neck pain SKIN: Absent: rash, itching, pallor HEMATOLOGIC/IMMUNOLOGIC: Absent: easy bleeding, easy bruising, lymphadenopathy, frequent infections ENDOCRINE: Absent: unexplained weight gain, unexplained weight loss, heat intolerance, cold intolerance NEUROLOGIC: Absent: headache, focal weakness or paresthesias, dizziness, unsteady gait, seizure, mental status changes, bladder or bowel incontinence PSYCHIATRIC: Absent: anxiety, depression, suicidal or homicidal ideation, hallucinations. PHYSICAL EXAMINATION Vital Signs - 24 hr 04/08/20 04/08/20 04/08/20 08:17 08:52 09:01 Temperature 98.1 F Pulse Rate 90 Pulse Rate [ 131 H Left Radial] Respiratory 18 20 Rate Blood Pressure 71/59 L Blood Pressure 123/97 [Left Arm] O2 Sat by Pulse 100 100 100 Oximetry (%) 04/08/20 04/08/20 04/08/20 09:58 11:00 14:19 Temperature 98.5 F Pulse Rate Pulse Rate [ 134 H 135 H 89 Left Radial] Respiratory 22 H 22 H 19 Rate Blood Pressure Blood Pressure 109/74 108/80 118/78 [Left Arm] O2 Sat by Pulse 98 100 98 Oximetry (%) GENERAL: Awake, alert, and fully oriented, in no acute distress. HEAD: Normal with no signs of trauma. EYES: PERRLA, EOMI, sclera anicteric, conjunctiva clear. EARS, NOSE, THROAT:Moist mucous membranes. NECK: Normal range of motion, supple LUNGS: Breath sounds equal, clear to auscultation bilaterally HEART: Regular rate and rhythm, normal S1 and S2 ABDOMEN: Soft, nontender, not distended, normoactive bowel sounds MUSCULOSKELETAL: Normal range of motion at all joints. LOWER EXTREMITIES: 2+ pulses, warm, well-perfused. No peripheral edema. Bandage LLE c/d/i NEUROLOGICAL: Cranial nerves II-XII intact. Normal speech. Motor strength 5/5, sensation intact PSYCHIATRIC: Cooperative. Good eye contact. Appropriate mood and affect. SKIN: Warm, dry, normal turgor Laboratory Results - last 24 hr 04/08/20 04/08/20 04/08/20 09:53 09:53 09:53 WBC 9.1 RBC 4.50 Hgb 12.6 Hct 37.8 MCV 83.9 MCH 27.9 MCHC 33.3 RDW 13.7 Plt Count 298 D MPV 7.5 Absolute Neuts (auto) 6.8 Neutrophils % 74.1 Lymphocytes % 19.8 Monocytes % 4.4 Eosinophils % 0.8 Basophils % 0.9 Nucleated RBC % 0 PT with INR INR PTT (Actin FS) Sodium 132 L Potassium 4.9 Chloride 98 Carbon Dioxide 23 Anion Gap 11 BUN 48.2 H Creatinine 1.7 H Est GFR (CKD-EPI)AfAm 51.47 Est GFR (CKD-EPI)NonAf 44.41 Random Glucose 368 H Calcium 9.1 Total Bilirubin 0.5 AST 6 L ALT 10 L Alkaline Phosphatase 106 Creatine Kinase 60 Troponin I 0.17 H Total Protein 6.2 L Albumin 2.7 L TSH 0.93 04/08/20 09:53 WBC RBC Hgb Hct MCV MCH MCHC RDW Plt Count MPV Absolute Neuts (auto) Neutrophils % Lymphocytes % Monocytes % Eosinophils % Basophils % Nucleated RBC % PT with INR 12.10 INR 0.98 PTT (Actin FS) 35.3 Sodium Potassium Chloride Carbon Dioxide Anion Gap BUN Creatinine Est GFR (CKD-EPI)AfAm Est GFR (CKD-EPI)NonAf Random Glucose Calcium Total Bilirubin AST ALT Alkaline Phosphatase Creatine Kinase Troponin I Total Protein Albumin TSH ASSESSMENT/PLAN: Patient is a 54 year old male with past medical history of HTN, DM, Left foot cellulitis, OM s/p left 3rd toe amputation presented to the ED for lightheadedness for 2 days. Found tachycardic to the 140s. EKG revealed new onset A.flutter. #Lightheadedness likely 2/2 Aflutter -no history of arrhythmias -orthostatics negative -Head cT - no acute intracranial pathology -IV cardizem and PO cardizem given at the ED with rate controlled -CHADS VASC 2 with HTN and DM -will start heparin drip for AC -will continue cardizem 30mg q6 sta and IV prn -Echo -elevated trop likely demand 2/2 arrhythmia -will trend trop and EKG -Cardiology (Dr. Prather) consulted. Recs appreciated. #SCOTT -Cr 1.7 (baseline 0.8) -will trial with IVF -renal us -ua, urine cr, urine lytes -avoid nephrotoxic agents -monitor I&O -monitor renal function #DM -hold home po meds -insulin sliding scale -BGM ACHs #LLE cellulitis/OM s/p amputation (03/20) -last dose of ertapenem today -will consult ID (Dr. Mosquera) for further management. recs appreciated. -scheduled for follow up with podiatry today as well -will consult Dr. Wade. Recs appreciated. #FEN -IV NS @100cc/hr -Electrolytes wnl, routine bmp monitoring -Diabetic diet #Prophylaxis -Heparin drip #Disposition -full code -admit to tele Family Medical History Family History: As Documented Visit type - Emergency Visit Emergency Visit: Yes ED Registration Date: 04/08/20 Care time: The patient presented to the Emergency Department on the above date and was hospitalized for further evaluation of their emergent condition. - New Patient This patient is new to me today: Yes Date on this admission: 04/08/20 - Critical Care Critical Care patient: No ATTENDING PHYSICIAN STATEMENT I saw and evaluated the patient. I reviewed the resident's note and discussed the case with the resident. I agree with the resident's findings and plan as documented. SUBJECTIVE: OBJECTIVE: ASSESSMENT AND PLAN:
[2020-04-08] MEDS: INSULIN SLIDING SCALE (NOVOLOG) 1 VIAL SQ SCH ×2 (17:33→22:28)
[2020-04-08] MEDS ORDERED: INSULIN SLIDING SCALE (NOVOLOG) 1 VIAL SQ ONE (17:35)
--- NOTE | 2020-04-08 17:42 | CONSULT ---
Consult Consult Specialty:: Podiatry Reason for Consultation:: Follow up left foot - Alcohol/Substance Use Hx Alcohol Use: No - Smoking History Smoking history: Unknown if ever smoked Have you smoked in the past 12 months: No Aproximately how many cigarettes per day: 0 Home Medications - Allergies Allergies/Adverse Reactions: Allergies Allergy/AdvReac Type Severity Reaction Status Date / Time No Known Allergies Allergy Verified 04/08/20 08:39 - Home Medications Home Medications: Ambulatory Orders Glipizide [Glucotrol -] 5 mg PO DAILY 04/09/20 Apixaban [Eliquis -] 5 mg PO BID #60 tablet 04/10/20 Atorvastatin Ca [Lipitor] 80 mg PO HS #30 tablet 04/10/20 Collagenase Clostridium Hist. [Santyl -] 1 applic TP DAILY tube 04/10/20 Diltiazem Cd [Cardizem Cd -] 120 mg PO DAILY #30 cap.cd.24h 04/10/20 Insulin (Levemir) [Levemir Vial] 15 units SQ AM #1 vial 04/10/20 Syrge-Ndl,Ins 0.3 ml Half [place] [Insulin Syringe] 1 each MC DAILY #30 disp.syrin 04/10/20 metFORMIN HCL [Metformin HCl] 500 mg PO BID #60 tablet 04/10/20 Physical Exam Vital Signs: Vital Signs Temperature 98.5 F 04/08/20 14:19 Pulse Rate 105 H 04/08/20 17:25 Respiratory Rate 14 04/08/20 17:25 Blood Pressure 112/74 04/08/20 17:25 O2 Sat by Pulse Oximetry (%) 98 04/08/20 17:25 Wound/Incision: Yes: Other (+left foot wound s/p partial tma, +granulation, - drainage) Labs: CBC, BMP 04/08/20 09:53 04/08/20 09:53 Assessment/Plan grade 2-3 wound dorsum left foot Santyl dressing change daily. Will follow. Rest as per team.
--- NOTE | 2020-04-08 17:47 | CON.CARD ---
Cardiology Consult (text) - Consultation Consultation Note: cc: lightheaded hpi: 54 m hx dm, htn, recent admit for toe osteo s/p amp and PICC for abx, here with lightheadedness. Since yesterday he has had mild lightheadedness associated with general weakness. Lightheaded worse when sitting up better when laying sunny n. Has been constant for past 1 day. No cp sob palps loc pnd orthopnea le edema. In ER found to have aflutter with rvr. pmh: per hpi psh: toe amp social: no tob fam: no premature cad, scd ros: per hpi; all others nl medS: Home Medications Medication Instructions Recorded metFORMIN HCL [Glucophage] 1,000 mg PO BID 12/01/13 Ertapenem Sodium [Invanz -] 1 gm IVPB DAILY vial 03/25/20 Glipizide [Glucotrol -] 10 mg PO BID@0700,1630 #60 tablet 03/25/20 pe: Vital Signs Period Temp Pulse Resp BP Sys/Oliver Pulse Ox Last 24 Hr 98.1 F-98.5 F 89-135 - 71-123/59-97 98-100 nad no jvd rrr s1s2 no mrg cta bl nl eff aao3 no le e/c/c abd nt nd pos bs no jaundice diaphoresis pos dp pt no carotid bruits Laboratory Last Values WBC 9.1 K/mm3 (4.0-10.0) 04/08/20 09:53 RBC 4.50 M/mm3 (4.00-5.60) 04/08/20 09:53 Hgb 12.6 GM/dL (11.7-16.9) 04/08/20 09:53 Hct 37.8 % (35.4-49) 04/08/20 09:53 MCV 83.9 fl (80-96) 04/08/20 09:53 MCH 27.9 pg (25.7-33.7) 04/08/20 09:53 MCHC 33.3 g/dl (32.0-35.9) 04/08/20 09:53 RDW 13.7 % (11.9-15.9) 04/08/20 09:53 Plt Count 298 K/MM3 (134-434) D 04/08/20 09:53 MPV 7.5 fl (7.5-11.1) 04/08/20 09:53 Absolute Neuts (auto) 6.8 K/mm3 (1.5-8.0) 04/08/20 09:53 Neutrophils % 74.1 % (42.8-82.8) 04/08/20 09:53 Lymphocytes % 19.8 % (8-40) 04/08/20 09:53 Monocytes % 4.4 % (3.8-10.2) 04/08/20 09:53 Eosinophils % 0.8 % (0-4.5) 04/08/20 09:53 Basophils % 0.9 % (0-2.0) 04/08/20 09:53 Nucleated RBC % 0 % (0-0) 04/08/20 09:53 PT with INR 12.10 SEC (9.7-13.0) 04/08/20 09:53 INR 0.98 (0.83-1.09) 04/08/20 09:53 PTT (Actin FS) 35.3 SECONDS (25.2-36.5) 04/08/20 09:53 Sodium 132 mmol/L (136-145) L 04/08/20 09:53 Potassium 4.9 mmol/L (3.5-5.1) 04/08/20 09:53 Chloride 98 mmol/L (98-107) 04/08/20 09:53 Carbon Dioxide 23 mmol/L (21-32) 04/08/20 09:53 Anion Gap 11 MMOL/L (8-16) 04/08/20 09:53 BUN 48.2 mg/dL (7-18) H 04/08/20 09:53 Creatinine 1.7 mg/dL (0.55-1.3) H 04/08/20 09:53 Est GFR (CKD-EPI)AfAm 51.47 04/08/20 09:53 Est GFR (CKD-EPI)NonAf 44.41 04/08/20 09:53 POC Glucometer 356 UNITS (80-120) 04/08/20 17:31 Random Glucose 368 mg/dL (74-106) H 04/08/20 09:53 Calcium 9.1 mg/dL (8.5-10.1) 04/08/20 09:53 Total Bilirubin 0.5 mg/dL (0.2-1) 04/08/20 09:53 AST 6 U/L (15-37) L 04/08/20 09:53 ALT 10 U/L (13-61) L 04/08/20 09:53 Alkaline Phosphatase 106 U/L (45-117) 04/08/20 09:53 Creatine Kinase 60 U/L (26-308) 04/08/20 09:53 Troponin I 0.17 ng/ml (0.00-0.05) H 04/08/20 09:53 Total Protein 6.2 g/dl (6.4-8.2) L 04/08/20 09:53 Albumin 2.7 g/dl (3.4-5.0) L 04/08/20 09:53 TSH 0.93 uIU/ml (0.358-3.74) 04/08/20 09:53 tele: aflutter, rate controlled ecg: aflutter with 4:1 avb, no ischemic changes, nl qtc cxr: clear a/p: 54 m hx dm, htn, recent admit for toe osteo s/p amp and PICC for abx, here with lightheadedness. 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
[2020-04-08 17:54] LABS: EPI CELLS 6 /uL (0-25.1); HYALINE CASTS 4 /uL (0-3.1); URINE APPEARANCE CLOUDY; URINE BACTERIA 18 /uL (0-1359); URINE BILIRUBIN NEGATIVE (NEGATIVE); URINE COLOR YELLOW; URINE GLUCOSE (UA) 2+ (NEGATIVE); URINE KETONE NEGATIVE (NEGATIVE); URINE LEUK ESTERASE NEGATIVE (NEGATIVE); URINE NITRITE NEGATIVE (NEGATIVE); URINE PROTEIN 1+ (NEGATIVE); URINE RBC 17 /uL (0-23.9); URINE UROBILINOGEN 0.2 mg/dL (0.2-1.0); URINE WBC 7 /uL (0-25.8)
[2020-04-08] MEDS: COLLAGENASE CLOSTRIDIUM HIST. 30 GRAMS TUBE TP SCH ×2 (18:00→22:28)
[2020-04-08 18:04] LABS: METHADONE, UR NEGATIVE ng/ml (CUTOFF=300)
[2020-04-08 18:05] LABS: COCAINE, UR NEGATIVE ng/ml (CUTOFF=300); OPIATES, URI NEGATIVE ng/ml (CUTOFF=300); PHENCYCLIDINE,URINE NEGATIVE ng/ml (CUTOFF=25); URINE BARBITURATES NEGATIVE ng/ml (CUTOFF=200); URINE BENZODIAZEPINES NEGATIVE ng/ml (CUTOFF=200)
[2020-04-08 18:08] LABS: URINE AMPHETAMINES NEGATIVE ng/ml (CUTOFF=500)
[2020-04-08] MEDS: dilTIAZem HCL 30 MG TABLET PO SCH ×2 (19:39→23:20)
[2020-04-08] MEDS ORDERED: ATORVASTATIN CA 40 MG TABLET (FP) PO SCH (22:00)
--- NOTE | 2020-04-08 22:18 | PN ---
Teaching Attending Note Name of Resident: Tahira Eubanks ATTENDING PHYSICIAN STATEMENT I saw and evaluated the patient. I reviewed the resident's note and discussed the case with the resident. I agree with the resident's findings and plan as documented. SUBJECTIVE: Patient seen and examined at bedside, admitted for new onset Atrial flutter with 4:1 conduction, VSS. OBJECTIVE: GA comfortable, AAox3 HEENT NC/AT, no JVD, neck supple CVs Irregularly irregular, regular rate Abd SOft, NT, ND, BS+ Ext no Le edema, LLE foot ulcer w/ dressing Vital Signs (72 hours) 04/08/20 04/08/20 04/08/20 08:17 08:52 09:01 Temperature 98.1 F Pulse Rate 90 Pulse Rate [ 131 H Left Radial] Respiratory 18 20 Rate Blood Pressure 71/59 L Blood Pressure 123/97 [Left Arm] O2 Sat by Pulse 100 100 100 Oximetry (%) 04/08/20 04/08/20 04/08/20 09:58 11:00 14:19 Temperature 98.5 F Pulse Rate Pulse Rate [ 134 H 135 H 89 Left Radial] Respiratory 22 H 22 H 19 Rate Blood Pressure Blood Pressure 109/74 108/80 118/78 [Left Arm] O2 Sat by Pulse 98 100 98 Oximetry (%) 04/08/20 04/08/20 04/08/20 17:25 18:00 20:38 Temperature 97.7 F Pulse Rate 110 H Pulse Rate [ 105 H Left Radial] Respiratory 14 20 Rate Blood Pressure 116/70 Blood Pressure 112/74 [Left Arm] O2 Sat by Pulse 98 100 100 Oximetry (%) Laboratory Results - last 24 hr 04/08/20 04/08/20 04/08/20 09:53 09:53 09:53 WBC 9.1 RBC 4.50 Hgb 12.6 Hct 37.8 MCV 83.9 MCH 27.9 MCHC 33.3 RDW 13.7 Plt Count 298 D MPV 7.5 Absolute Neuts (auto) 6.8 Neutrophils % 74.1 Lymphocytes % 19.8 Monocytes % 4.4 Eosinophils % 0.8 Basophils % 0.9 Nucleated RBC % 0 PT with INR INR PTT (Actin FS) Sodium 132 L Potassium 4.9 Chloride 98 Carbon Dioxide 23 Anion Gap 11 BUN 48.2 H Creatinine 1.7 H Est GFR (CKD-EPI)AfAm 51.47 Est GFR (CKD-EPI)NonAf 44.41 POC Glucometer Random Glucose 368 H Calcium 9.1 Total Bilirubin 0.5 AST 6 L ALT 10 L Alkaline Phosphatase 106 Creatine Kinase 60 Troponin I 0.17 H Total Protein 6.2 L Albumin 2.7 L Triglycerides Cholesterol Total LDL Cholesterol HDL Cholesterol TSH 0.93 Urine Color Urine Appearance Urine pH Ur Specific [place] Urine Protein Urine Glucose (UA) Urine Ketones Urine Blood Urine Nitrite Urine Bilirubin Urine Urobilinogen Ur Leukocyte Esterase Urine WBC (Auto) Urine RBC (Auto) Urine Casts (Auto) U Epithel Cells (Auto) Urine Bacteria (Auto) Ur Random Creatinine Ur Random Sodium Ur Random Potassium Ur Random Chloride Opiates Screen Methadone Screen Barbiturate Screen Phencyclidine Screen Ur Amphetamines Screen MDMA (Ecstasy) Screen Benzodiazepines Screen Cocaine Screen U Marijuana (THC) Screen 04/08/20 04/08/20 04/08/20 09:53 16:48 16:48 WBC RBC Hgb Hct MCV MCH MCHC RDW Plt Count MPV Absolute Neuts (auto) Neutrophils % Lymphocytes % Monocytes % Eosinophils % Basophils % Nucleated RBC % PT with INR 12.10 INR 0.98 PTT (Actin FS) 35.3 Sodium Potassium Chloride Carbon Dioxide Anion Gap BUN Creatinine Est GFR (CKD-EPI)AfAm Est GFR (CKD-EPI)NonAf POC Glucometer Random Glucose Calcium Total Bilirubin AST ALT Alkaline Phosphatase Creatine Kinase Troponin I 0.19 H Total Protein Albumin Triglycerides 395 H Cholesterol 221 H Total LDL Cholesterol 146 H HDL Cholesterol 28 L TSH 0.70 D Urine Color Yellow Urine Appearance Cloudy Urine pH 5.0 Ur Specific [place] 1.017 Urine Protein 1+ H Urine Glucose (UA) 2+ H Urine Ketones Negative Urine Blood Negative Urine Nitrite Negative Urine Bilirubin Negative Urine Urobilinogen 0.2 Ur Leukocyte Esterase Negative Urine WBC (Auto) 7 Urine RBC (Auto) 17 Urine Casts (Auto) 4 U Epithel Cells (Auto) 6 Urine Bacteria (Auto) 18 Ur Random Creatinine Ur Random Sodium Ur Random Potassium Ur Random Chloride Opiates Screen Methadone Screen Barbiturate Screen Phencyclidine Screen Ur Amphetamines Screen MDMA (Ecstasy) Screen Benzodiazepines Screen Cocaine Screen U Marijuana (THC) Screen 04/08/20 04/08/20 04/08/20 16:48 16:48 17:31 WBC RBC Hgb Hct MCV MCH MCHC RDW Plt Count MPV Absolute Neuts (auto) Neutrophils % Lymphocytes % Monocytes % Eosinophils % Basophils % Nucleated RBC % PT with INR INR PTT (Actin FS) Sodium Potassium Chloride Carbon Dioxide Anion Gap BUN Creatinine Est GFR (CKD-EPI)AfAm Est GFR (CKD-EPI)NonAf POC Glucometer 356 Random Glucose Calcium Total Bilirubin AST ALT Alkaline Phosphatase Creatine Kinase Troponin I Total Protein Albumin Triglycerides Cholesterol Total LDL Cholesterol HDL Cholesterol TSH Urine Color Urine Appearance Urine pH Ur Specific [place] Urine Protein Urine Glucose (UA) Urine Ketones Urine Blood Urine Nitrite Urine Bilirubin Urine Urobilinogen Ur Leukocyte Esterase Urine WBC (Auto) Urine RBC (Auto) Urine Casts (Auto) U Epithel Cells (Auto) Urine Bacteria (Auto) Ur Random Creatinine 143.0 Ur Random Sodium < 18 L Ur Random Potassium 47.0 Ur Random Chloride < 11 L Opiates Screen Negative Methadone Screen Negative Barbiturate Screen Negative Phencyclidine Screen Negative Ur Amphetamines Screen Negative MDMA (Ecstasy) Screen Negative Benzodiazepines Screen Negative Cocaine Screen Negative U Marijuana (THC) Screen Negative 04/08/20 21:49 WBC RBC Hgb Hct MCV MCH MCHC RDW Plt Count MPV Absolute Neuts (auto) Neutrophils % Lymphocytes % Monocytes % Eosinophils % Basophils % Nucleated RBC % PT with INR INR PTT (Actin FS) 40.4 H Sodium Potassium Chloride Carbon Dioxide Anion Gap BUN Creatinine Est GFR (CKD-EPI)AfAm Est GFR (CKD-EPI)NonAf POC Glucometer Random Glucose Calcium Total Bilirubin AST ALT Alkaline Phosphatase Creatine Kinase Troponin I Total Protein Albumin Triglycerides Cholesterol Total LDL Cholesterol HDL Cholesterol TSH Urine Color Urine Appearance Urine pH Ur Specific [place] Urine Protein Urine Glucose (UA) Urine Ketones Urine Blood Urine Nitrite Urine Bilirubin Urine Urobilinogen Ur Leukocyte Esterase Urine WBC (Auto) Urine RBC (Auto) Urine Casts (Auto) U Epithel Cells (Auto) Urine Bacteria (Auto) Ur Random Creatinine Ur Random Sodium Ur Random Potassium Ur Random Chloride Opiates Screen Methadone Screen Barbiturate Screen Phencyclidine Screen Ur Amphetamines Screen MDMA (Ecstasy) Screen Benzodiazepines Screen Cocaine Screen U Marijuana (THC) Screen Home Medications Medication Instructions Recorded metFORMIN HCL [Glucophage] 1,000 mg PO BID 12/01/13 Ertapenem Sodium [Invanz -] 1 gm IVPB DAILY vial 03/25/20 Glipizide [Glucotrol -] 10 mg PO BID@0700,1630 #60 tablet 03/25/20 Current Medications Generic Name Dose Route Start Last Admin Trade Name Freq PRN Reason Stop Dose Admin Atorvastatin Calcium 40 mg 04/08/20 22:00 Lipitor - PO HS WILLIAM Collagenase 1 applic 04/08/20 17:45 04/08/20 18:00 Santyl - TP Not Given DAILY [facility] Protocol Diltiazem HCl 30 mg 04/08/20 18:00 04/08/20 19:39 Cardizem - PO 30 mg Q6HPO WILLIAM Administration Diltiazem HCl 5 mg 04/08/20 14:57 Cardizem Injection - IVPUSH Q4H PRN TACHYCARDIA Heparin Sodium (Porcine) 1,000 unit 04/08/20 14:41 Heparin - IVPUSH PRN PRN Heparin Heparin Sodium (Porcine) 5,000 unit 04/08/20 14:41 Heparin - IVPUSH PRN PRN Heparin Heparin Sodium (Porcine) 25, 500 mls @ 20 mls/hr 04/08/20 14:45 04/08/20 15:27 000 unit/ Sodium Chloride IV 1,000 unit/hr TITR WILLIAM 20 mls/hr Administration Protocol 1,000 UNIT/HR Sodium Chloride 1,000 mls @ 100 mls/hr 04/08/20 14:45 04/08/20 15:28 Normal Saline - IV 100 mls/hr ASDIR WILLIAM Administration Insulin Aspart 1 vial 04/08/20 16:30 04/08/20 17:33 Novolog Vial Sliding Scale - SQ 10 units ACHS WILLIAM Administration Protocol ASSESSMENT AND PLAN: 54 M New onset Atrial flutter HTN HLD T2DM LLE Diabetic foot ulcer PLan: Heparin gtt for anticoagulation PO Cardizem for rate control Echo/Thyroid panel/Utox IV hydration IV Ertapenem for LLE OM/ulcer ID consult Cardiology consult Strict glycemic control DVT ppx: Heparin
[2020-04-08] MEDS: HEPARIN NA (PORCINE) 5,000 UNITS/ML 1ML VIAL IVPUSH PRN (22:27)
[2020-04-09] MEDS: SODIUM CHLORIDE 1,000 ML IV SCH ×2 (02:04→14:26)
[2020-04-09] MEDS: HEPARIN NA (PORCINE) 5,000 UNITS/ML 1ML VIAL IVPUSH PRN (05:07)
--- NOTE | 2020-04-09 05:36 | PN ---
Progress Note, Physician Chief Complaint: TELE: AFL converted to NSR Denies CP/SOB/palps History of Present Illness: new onset aflutter - Current Medication List Current Medications: Active Medications Atorvastatin Calcium (Lipitor -) 40 mg PO HS [facility] Last Admin: 04/08/20 22:27 Dose: 40 mg Documented by: Collagenase (Santyl -) 1 applic TP DAILY [facility]; Protocol Last Admin: 04/08/20 22:28 Dose: 1 applic Documented by: Diltiazem HCl (Cardizem -) 30 mg PO Q6HPO [facility] Last Admin: 04/08/20 23:20 Dose: 30 mg Documented by: Diltiazem HCl (Cardizem Injection -) 5 mg IVPUSH Q4H PRN PRN Reason: TACHYCARDIA Heparin Sodium (Porcine) (Heparin -) 1,000 unit IVPUSH PRN PRN PRN Reason: Heparin Last Admin: 04/09/20 05:07 Dose: 1,000 unit Documented by: Heparin Sodium (Porcine) (Heparin -) 5,000 unit IVPUSH PRN PRN PRN Reason: Heparin Heparin Sodium (Porcine) 25, (000 unit/ Sodium Chloride) 500 mls @ 20 mls/hr IV TITR [facility]; Protocol Last Titration: 04/09/20 05:08 Dose: 1,200 unit/hr, 24 mls/hr Documented by: Sodium Chloride (Normal Saline -) 1,000 mls @ 100 mls/hr IV ASDIR [facility] Last Admin: 04/09/20 02:04 Dose: 100 mls/hr Documented by: Insulin Aspart (Novolog Vial Sliding Scale -) 1 vial SQ ACHS [facility]; Protocol Last Admin: 04/08/20 22:28 Dose: 4 units Documented by: - Objective Vital Signs: Vital Signs Temperature 97.7 F 04/09/20 01:00 Pulse Rate 100 H 04/09/20 01:00 Respiratory Rate 20 04/09/20 01:00 Blood Pressure 120/62 04/09/20 01:00 O2 Sat by Pulse Oximetry (%) 97 04/09/20 01:00 Constitutional: Yes: No Distress, Calm Cardiovascular: Yes: Regular Rate and Rhythm Respiratory: Yes: CTA Bilaterally Gastrointestinal: Yes: Soft (nt) Edema: No Peripheral Pulses WNL: Yes Neurological: Yes: Alert, Oriented ...Motor Strength: WNL Psychiatric: Yes: WNL Labs: CBC, BMP 04/08/20 09:53 04/08/20 09:53 INR, PTT INR 0.98 (0.83-1.09) 04/08/20 09:53 Laboratory Tests 04/09/20 04/09/20 04/09/20 04:30 06:22 06:22 WBC 6.5 Hgb 11.6 L Plt Count 271 PTT (Actin FS) 45.3 H Sodium 137 Potassium 4.5 Creatinine 1.4 H - ....Imaging EKG: Image Reviewed Assessment/Plan ecg: aflutter with 4:1 avb, no ischemic changes, nl qtc cxr: clear a/p: 54 m hx dm, htn, recent admit for toe osteo s/p amp and PICC for abx, here with lightheadedness and new onset AFLUTTER Now reverted to NSR aflutter with rvr: paroxysmal -new diagnosis here -rate improved after iv dilt, cont po dilt for now, monitor on tele -Can switch to Cardizem CD 120mg daily -chadsvasc warrants ac, on heparin gtts. Would convert to Eliquis 5mg BID (and confirm that his insurance will cover this medication prior to discharge) -check echo -tsh wnl daly: improved -cont ivfs, trend cr elevated trop: -borderline trop elevation, FLAT with normal CK. Not likely acs, more likely due to AFL w/ RVR and demand ischemia in that setting. 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
[2020-04-09] MEDS: INSULIN SLIDING SCALE (NOVOLOG) 1 VIAL SQ SCH ×4 (06:11→21:06)
[2020-04-09] MEDS: dilTIAZem HCL 30 MG TABLET PO SCH (06:11)
[2020-04-09 06:44] LABS: BASO % 1.2 % (0-2.0); EOS % 2.9 % (0-4.5); HEMATOCRIT 34.9 % (35.4-49); HEMOGLOBIN 11.6 GM/dL (11.7-16.9); LYMPH % 46.5 % (8-40); MCH 27.9 pg (25.7-33.7); MCHC 33.3 g/dl (32.0-35.9); MEAN PLT VOLUME 7.2 fl (7.5-11.1); MONO % 6.3 % (3.8-10.2); NEUT % 43.1 % (42.8-82.8); PLATELET COUNT 271 K/MM3 (134-434); RBC 4.16 M/mm3 (4.00-5.60); RDW 14.1 % (11.9-15.9); WHITE BLOOD COUNT 6.5 K/mm3 (4.0-10.0)
[2020-04-09 07:25] LABS: POTASSIUM 4.5 mmol/L (3.5-5.1)
[2020-04-09 07:27] LABS: ALBUMIN 2.4 g/dl (3.4-5.0); BLOOD UREA NITROGEN 41.5 mg/dL (7-18)
[2020-04-09 07:28] LABS: CALCIUM 8.5 mg/dL (8.5-10.1); MAGNESIUM 2.3 mg/dL (1.8-2.4)
[2020-04-09 07:30] LABS: CREATININE 1.4 mg/dL (0.55-1.3)
[2020-04-09 07:31] LABS: PHOSPHOROUS 4.1 mg/dL (2.5-4.9)
[2020-04-09 07:32] LABS: BILIRUBIN,TOTAL 0.4 mg/dL (0.2-1); TOT PROT 5.8 g/dl (6.4-8.2)
[2020-04-09] MEDS ORDERED: ATORVASTATIN CA 80 MG TABLET (FP) PO SCH (07:32)
[2020-04-09] MEDS: INSULIN (LEVEMIR) 100 UNITS/ML UNITS SQ SCH ×2 (09:18→21:05)
--- NOTE | 2020-04-09 09:21 | PN ---
Teaching Attending Note Name of Resident: Rafal Anaya ATTENDING PHYSICIAN STATEMENT I saw and evaluated the patient. I reviewed the resident's note and discussed the case with the resident. I agree with the resident's findings and plan as documented. SUBJECTIVE: Patient is comfortable with NAD, no further palpitations, no shortness of breath OBJECTIVE: Vital Signs Temperature 98.0 F 04/09/20 05:00 Pulse Rate 78 04/09/20 05:00 Respiratory Rate 20 04/09/20 05:00 Blood Pressure 105/60 04/09/20 05:00 O2 Sat by Pulse Oximetry (%) 99 04/09/20 05:00 PE: per resident's note CVS: NSR with rate controlled CBCD WBC 6.5 K/mm3 (4.0-10.0) 04/09/20 06:22 RBC 4.16 M/mm3 (4.00-5.60) 04/09/20 06:22 Hgb 11.6 GM/dL (11.7-16.9) L 04/09/20 06:22 Hct 34.9 % (35.4-49) L 04/09/20 06:22 MCV 84.0 fl (80-96) 04/09/20 06:22 MCHC 33.3 g/dl (32.0-35.9) 04/09/20 06:22 RDW 14.1 % (11.9-15.9) 04/09/20 06:22 Plt Count 271 K/MM3 (134-434) 04/09/20 06:22 MPV 7.2 fl (7.5-11.1) L 04/09/20 06:22 CMP Sodium 137 mmol/L (136-145) 04/09/20 06:22 Potassium 4.5 mmol/L (3.5-5.1) 04/09/20 06:22 Chloride 105 mmol/L (98-107) 04/09/20 06:22 Carbon Dioxide 26 mmol/L (21-32) 04/09/20 06:22 Anion Gap 6 MMOL/L (8-16) L 04/09/20 06:22 BUN 41.5 mg/dL (7-18) H 04/09/20 06:22 Creatinine 1.4 mg/dL (0.55-1.3) H 04/09/20 06:22 Random Glucose 271 mg/dL (74-106) H 04/09/20 06:22 Calcium 8.5 mg/dL (8.5-10.1) 04/09/20 06:22 Total Bilirubin 0.4 mg/dL (0.2-1) 04/09/20 06:22 AST 11 U/L (15-37) L 04/09/20 06:22 ALT 11 U/L (13-61) L 04/09/20 06:22 Alkaline Phosphatase 105 U/L (45-117) 04/09/20 06:22 Total Protein 5.8 g/dl (6.4-8.2) L 04/09/20 06:22 Albumin 2.4 g/dl (3.4-5.0) L 04/09/20 06:22 CARDIAC ENZYMES Creatine Kinase 60 U/L (26-308) 04/08/20 09:53 Troponin I 0.19 ng/ml (0.00-0.05) H 04/08/20 22:50 Current Medications Generic Name Dose Route Start Last Admin Trade Name Freq PRN Reason Stop Dose Admin Atorvastatin Calcium 80 mg 04/09/20 07:32 Lipitor - PO HS WILLIAM Collagenase 1 applic 04/08/20 17:45 04/08/20 22:28 Santyl - TP 1 applic DAILY WILLIAM Administration Protocol Diltiazem HCl 30 mg 04/08/20 18:00 04/09/20 06:11 Cardizem - PO 30 mg Q6HPO WILLIAM Administration Diltiazem HCl 5 mg 04/08/20 14:57 Cardizem Injection - IVPUSH Q4H PRN TACHYCARDIA Heparin Sodium (Porcine) 1,000 unit 04/08/20 14:41 04/09/20 05:07 Heparin - IVPUSH 1,000 unit PRN PRN Administration Heparin Heparin Sodium (Porcine) 5,000 unit 04/08/20 14:41 Heparin - IVPUSH PRN PRN Heparin Heparin Sodium (Porcine) 25, 500 mls @ 20 mls/hr 04/08/20 14:45 04/09/20 05:08 000 unit/ Sodium Chloride IV 1,200 unit/hr TITR WILLIAM 24 mls/hr Titration Protocol 1,000 UNIT/HR Sodium Chloride 1,000 mls @ 100 mls/hr 04/08/20 14:45 04/09/20 02:04 Normal Saline - IV 100 mls/hr ASDIR WILLIAM Administration Insulin Aspart 1 vial 04/08/20 16:30 04/09/20 06:11 Novolog Vial Sliding Scale - SQ 6 units ACHS WILLIAM Administration Protocol Insulin Detemir 10 units 04/09/20 08:15 04/09/20 09:18 Levemir Vial SQ 10 units BID@0700,2200 WILLIAM Administration Home Medications Medication Instructions Recorded metFORMIN HCL [Glucophage] 1,000 mg PO BID 12/01/13 Ertapenem Sodium [Invanz -] 1 gm IVPB DAILY vial 03/25/20 Glipizide [Glucotrol -] 10 mg PO BID@0700,1630 #60 tablet 03/25/20 Laboratory Tests 04/08/20 04/08/20 04/08/20 09:53 09:53 16:48 BUN 48.2 H Creatinine 1.7 H Hemoglobin A1c % Troponin I 0.17 H 0.19 H Triglycerides 395 H Cholesterol 221 H Total LDL Cholesterol 146 H HDL Cholesterol 28 L TSH 0.70 D 04/08/20 04/08/20 04/09/20 21:49 22:50 06:22 BUN 41.5 H Creatinine 1.4 H Hemoglobin A1c % 12.4 H Troponin I 0.19 H Triglycerides Cholesterol Total LDL Cholesterol HDL Cholesterol TSH Head CT: negative Renal US: no acute findings ASSESSMENT AND PLAN: This patient is a 54yom with PMHx of hx dm, htn, recent admit for toe osteoM s/p amp and PICC for abx, presented with lightheadedness and new onset AFLUTTER Now reverted to NSR >New onset Atrial flutter with chadsvasc of 3 warrants ac , will start the pa tient on ELiquis 5mg bid now, s/p heparin, on cardizem ER 120mg now continue, will continue to monitor ,check echo, tsh wnl. >Elevated trops: most likely demand ischemia due to AFL with RVR ; outpatient cardiology f/u and outpatient stress test for further risk stratification >SCOTT: improved post IVF, 1.7-->1.4 today , trend >HTN: On CArdizem CD continue >HLD: On Lipitor 80mg hs >T2DM: On levemir continue >LLE Diabetic foot ulcer with OsteoM/ulcer: Picc line, completed Ertapenem , ID on the case , on collagenease continue DVT ppx: Eliquis
--- NOTE | 2020-04-09 10:13 | CON.ID ---
Consult Consult Specialty:: infectious diseases Referred by:: rt sided weakness Reason for Consultation:: syncope, rt sided weakness - History of Present Illness Chief Complaint: rt sided weakness History of Present Illness: 54 year old male with past medical history of HTN, DM, Left foot cellulitis, OM s/p left 3rd toe amputation presented to the ED for lightheadedness for 2 days. Patient reported he started feeling lightheaded starting yesterday. Since he was discharged last month, patient was feeling good, until yesterday when he started feeling lightheaded. This was accompanied by right leg weakness that he needed assistance while walking. Patient denies any recent illness of sick contacts. Denies fevers, chills, headache, chest pain, SOB, palpitations, abdominal pain, diarrhea, urinary symptoms. At the ED, patient was found to be tachycardic at the 140s. EKG revealed Afib/Aflutter. He received 30mg IV push and 30mg PO Cardizem, and repeat EKG revealed Aflutter with HR of 77. currently patient feels better - History Source History Provided By: Patient Limitations to Obtaining History: No Limitations - Alcohol/Substance Use Hx Alcohol Use: No - Smoking History Smoking history: Unknown if ever smoked Have you smoked in the past 12 months: No Aproximately how many cigarettes per day: 0 Home Medications - Allergies Allergies/Adverse Reactions: Allergies Allergy/AdvReac Type Severity Reaction Status Date / Time No Known Allergies Allergy Verified 04/08/20 08:39 - Home Medications Home Medications: Ambulatory Orders metFORMIN HCL [Glucophage] 1,000 mg PO BID 12/01/13 Ertapenem Sodium [Invanz -] 1 gm IVPB DAILY vial 03/25/20 Glipizide [Glucotrol -] 10 mg PO BID@0700,1630 #60 tablet 03/25/20 Review of Systems - Review of Systems Constitutional: reports: Other Eyes: reports: No Symptoms HENT: reports: No Symptoms Neck: reports: No Symptoms Cardiovascular: reports: No Symptoms Respiratory: reports: No Symptoms Gastrointestinal: reports: No Symptoms Genitourinary: reports: No Symptoms Musculoskeletal: reports: Other Integumentary: reports: No Symptoms Neurological: reports: Other (rt sided weakness) Endocrine: reports: No Symptoms Hematology/Lymphatic: reports: No Symptoms Psychiatric: reports: No Symptoms Physical Exam Vital Signs: Vital Signs Temperature 97.8 F 04/09/20 09:32 Pulse Rate 87 04/09/20 09:32 Respiratory Rate 18 04/09/20 09:32 Blood Pressure 133/84 04/09/20 09:32 O2 Sat by Pulse Oximetry (%) 99 04/09/20 09:32 Constitutional: Yes: Well Nourished, No Distress, Calm Eyes: Yes: Conjunctiva Clear HENT: Yes: Atraumatic, Normocephalic Neck: Yes: Supple, Trachea Midline Cardiovascular: Yes: Regular Rate and Rhythm Respiratory: Yes: Regular, CTA Bilaterally Gastrointestinal: Yes: Normal Bowel Sounds, Soft Musculoskeletal: Yes: WNL Extremities: Yes: Other Wound/Incision: Yes: Dressing Dry and Intact Neurological: Yes: Alert, Oriented Psychiatric: Yes: Alert, Oriented Labs: CBC, BMP 04/09/20 06:22 04/09/20 06:22 Imaging - Results Chest X-ray: Report Reviewed, Image Reviewed Cat Scan: Report Reviewed, Image Reviewed Ultrasound: Report Reviewed, Image Reviewed Assessment/Plan 54 M L foot wound infection,breakdown cellulitis Uncontrolled T2Dm with hyperglycemia HTN HLD Active smoker syncope rt sided weakness plan if abx course is done can stop abx wound care rest as per the team
[2020-04-09] MEDS: COLLAGENASE CLOSTRIDIUM HIST. 30 GRAMS TUBE TP SCH (10:41)
[2020-04-09] MEDS: APIXABAN 5 MG TABLET PO SCH ×2 (11:56→21:05)
--- NOTE | 2020-04-09 12:38 | EKG ---
Test Reason : Blood Pressure : / mmHG Vent. Rate : 077 BPM Atrial Rate : 308 BPM P-R Int : 000 ms QRS Dur : 102 ms QT Int : 380 ms P-R-T Axes : 264 042 054 degrees QTc Int : 430 ms ATRIAL FLUTTER WITH 4:1 A-V CONDUCTION POSSIBLE INFERIOR INFARCT , AGE UNDETERMINED ABNORMAL ECG WHEN COMPARED WITH ECG OF 08-APR-2020 08:51, ATRIAL FLUTTER HAS REPLACED ATRIAL FIBRILLATION VENT. RATE HAS DECREASED BY 57 BPM Confirmed by SHAVON MOURA MD ([id number]) on 04/09/2020 12:38:00 PM Referred By: Confirmed By:SHAVON MOURA MD
--- NOTE | 2020-04-09 12:39 | EKG ---
Test Reason : Blood Pressure : / mmHG Vent. Rate : 134 BPM Atrial Rate : 312 BPM P-R Int : 000 ms QRS Dur : 070 ms QT Int : 306 ms P-R-T Axes : 000 037 070 degrees QTc Int : 456 ms ATRIAL FIBRILLATION WITH RAPID VENTRICULAR RESPONSE ABNORMAL ECG WHEN COMPARED WITH ECG OF 18-MAR-2020 15:01, ATRIAL FIBRILLATION HAS REPLACED SINUS RHYTHM NONSPECIFIC T WAVE ABNORMALITY NOW EVIDENT IN INFERIOR LEADS Confirmed by SHAVON MOURA MD ([id number]) on 04/09/2020 12:38:42 PM Referred By: Confirmed By:SHAVON MOURA MD
--- NOTE | 2020-04-09 14:10 | ECHO ---
Version: 1 Name: WAYNE HOLMAN Exam: Adult Echocardiogram Study Date: 04/09/2020, 1:07 PM Age: 54 Years MMode/2D Measurements & Calculations IVSd: 1.18 cm LVIDs: 2.7 cm LVIDd: 4.0 cm LVPWd: 0.98 cm LAV (MOD-bp): 70.0 ml LVOT diam: 2.03 cm LA dimension: 3.9 cm Doppler Measurements & Calculations MV E max freddie: 104.7 cm/sec Med E/e': 16.3 MV A max freddie: 41.7 cm/sec Med Peak E' Freddie: 6.4 cm/sec MV E/A: 2.5 Lat E/e': 12.2 Lat Peak E' Freddie: 8.6 cm/sec Ao max P.1 mmHg APRIL(I,D): 3.6 cm Ao mean P.46 mmHg LV V1 mean: 61.5 cm/sec Ao V2 max: 101.8 cm/sec LV V1 mean P.81 mmHg PI end-d freddie: 107.2 cm/sec TR max freddie: 249.6 cm/sec TR max P.1 mmHg Left Ventricle Left ventricular systolic function is normal. Ejection Fraction = 55-60%. The transmitral spectral D oppler flow pattern is normal for age. The left ventricular wall motion is normal. Right Ventricle The right ventricle is normal in size and function. Atria The left atrium is mildly dilated. The interatrial septum is intact with no evidence for an atrial s eptal defect. Mitral Valve There is no mitral valve stenosis. There is trace to mild mitral regurgitation. Tricuspid Valve The tricuspid valve is normal in structure and function. There is mild tricuspid regurgitation. Ther e was insufficient TR detected to calculate RV systolic pressure. Aortic Valve No hemodynamically significant valvular aortic stenosis. No aortic regurgitation is present. Pulmonic Valve The pulmonic valve is not well seen, but is grossly normal. There is no pulmonic valvular stenosis. There is no pulmonic valvular regurgitation. Great Vessels The aortic root is normal size. Pericardium/Pleura There is no pericardial effusion. Summary Statements Left ventricular systolic function is normal. Ejection Fraction = 55-60%. The right ventricle is normal in size and function. The left atrium is mildly dilated. There is trace to mild mitral regurgitation. There is mild tricuspid regurgitation. There is no pericardial effusion. MD Romeo *Vicente 04/09/2020, 2:09 PM Ordering Physician: Vickie Ley Referring Physician: VICKIE LEY Performed By: Cece Kaur
--- NOTE | 2020-04-09 14:31 | PN ---
Progress Note, Physician Chief Complaint: Wound left foot - Current Medication List Current Medications: Active Medications Apixaban (Eliquis -) 5 mg PO BID [facility] Last Admin: 04/09/20 11:56 Dose: 5 mg Documented by: Atorvastatin Calcium (Lipitor -) 80 mg PO HS [facility] Collagenase (Santyl -) 1 applic TP DAILY [facility]; Protocol Last Admin: 04/09/20 10:41 Dose: 1 applic Documented by: Diltiazem HCl (Cardizem Injection -) 5 mg IVPUSH Q4H PRN PRN Reason: TACHYCARDIA Diltiazem HCl (Cardizem Cd -) 120 mg PO DAILY [facility] Last Admin: 04/09/20 10:40 Dose: 120 mg Documented by: Sodium Chloride (Normal Saline -) 1,000 mls @ 100 mls/hr IV ASDIR [facility] Last Admin: 04/09/20 14:26 Dose: 100 mls/hr Documented by: Insulin Aspart (Novolog Vial Sliding Scale -) 1 vial SQ ACHS [facility]; Protocol Last Admin: 04/09/20 11:34 Dose: 8 units Documented by: Insulin Detemir (Levemir Vial) 10 units SQ BID@0700,2200 [facility] Last Admin: 04/09/20 09:18 Dose: 10 units Documented by: - Objective Vital Signs: Vital Signs Temperature 97.8 F 04/09/20 09:32 Pulse Rate 87 04/09/20 09:32 Respiratory Rate 18 04/09/20 09:32 Blood Pressure 133/84 04/09/20 09:32 O2 Sat by Pulse Oximetry (%) 99 04/09/20 09:32 Wound/Incision: Yes: Other (+granulating wound left foot, -cellulitis ,- drainage) Labs: CBC, BMP 04/09/20 06:22 04/09/20 06:22 INR, PTT INR 0.98 (0.83-1.09) 04/08/20 09:53 Assessment/Plan grade 2-3 wound dorsum left foot Santyl dressing change daily. Will follow. Rest as per team. Pt needs to start HBO [place] to assist in his healing process.
[2020-04-10] MEDS: INSULIN (LEVEMIR) 100 UNITS/ML UNITS SQ SCH (06:23)
[2020-04-10] MEDS: INSULIN SLIDING SCALE (NOVOLOG) 1 VIAL SQ SCH ×2 (06:24→11:57)
[2020-04-10 06:47] LABS: HEMATOCRIT 32.6 % (35.4-49); HEMOGLOBIN 10.8 GM/dL (11.7-16.9); MCH 28.3 pg (25.7-33.7); MCHC 33.2 g/dl (32.0-35.9); MEAN CELL VOLUME 85.2 fl (80-96); MEAN PLT VOLUME 7.5 fl (7.5-11.1); PLATELET COUNT 259 K/MM3 (134-434); RBC 3.83 M/mm3 (4.00-5.60); RDW 14.1 % (11.9-15.9); WHITE BLOOD COUNT 6.6 K/mm3 (4.0-10.0)
--- NOTE | 2020-04-10 09:19 | PN ---
Progress Note (short form) - Note Progress Note: Vital Signs Temperature 98.0 F 04/10/20 05:45 Pulse Rate 90 04/10/20 05:45 Respiratory Rate 18 04/10/20 05:45 Blood Pressure 140/63 04/10/20 05:45 O2 Sat by Pulse Oximetry (%) 94 L 04/10/20 05:45 GENERAL: The patient is awake, alert, and fully oriented, in no acute distress. HEAD: Normal with no signs of trauma. EYES: PERRL, extraocular movements intact, sclera anicteric, conjunctiva clear. ENT: Ears normal, oropharynx clear without exudates, moist mucous membranes. NECK: Trachea midline, full range of motion, supple. LUNGS: Breath sounds equal, clear to auscultation bilaterally, no wheezes, no crackles, no accessory muscle use. HEART: Regular rate and rhythm, S1, S2 without murmur, rub or gallop. ABDOMEN: Soft, nontender, nondistended, normoactive bowel sounds, no guarding, no rebound, no hepatosplenomegaly, no masses. EXTREMITIES: 2+ pulses, warm, well-perfused, no edema. NEUROLOGICAL: Cranial nerves II through XII grossly intact. Normal speech, gait not observed. PSYCH: Normal mood, normal affect. SKIN: Warm, dry, normal turgor, no rashes or lesions noted CBCD WBC 6.6 K/mm3 (4.0-10.0) 04/10/20 05:30 RBC 3.83 M/mm3 (4.00-5.60) L 04/10/20 05:30 Hgb 10.8 GM/dL (11.7-16.9) L 04/10/20 05:30 Hct 32.6 % (35.4-49) L 04/10/20 05:30 MCV 85.2 fl (80-96) 04/10/20 05:30 MCHC 33.2 g/dl (32.0-35.9) 04/10/20 05:30 RDW 14.1 % (11.9-15.9) 04/10/20 05:30 Plt Count 259 K/MM3 (134-434) 04/10/20 05:30 MPV 7.5 fl (7.5-11.1) 04/10/20 05:30 CMP Sodium 137 mmol/L (136-145) 04/09/20 06:22 Potassium 4.5 mmol/L (3.5-5.1) 04/09/20 06:22 Chloride 105 mmol/L (98-107) 04/09/20 06:22 Carbon Dioxide 26 mmol/L (21-32) 04/09/20 06:22 Anion Gap 6 MMOL/L (8-16) L 04/09/20 06:22 BUN 41.5 mg/dL (7-18) H 04/09/20 06:22 Creatinine 1.4 mg/dL (0.55-1.3) H 04/09/20 06:22 Random Glucose 271 mg/dL (74-106) H 04/09/20 06:22 Calcium 8.5 mg/dL (8.5-10.1) 04/09/20 06:22 Total Bilirubin 0.4 mg/dL (0.2-1) 04/09/20 06:22 AST 11 U/L (15-37) L 04/09/20 06:22 ALT 11 U/L (13-61) L 04/09/20 06:22 Alkaline Phosphatase 105 U/L (45-117) 04/09/20 06:22 Total Protein 5.8 g/dl (6.4-8.2) L 04/09/20 06:22 Albumin 2.4 g/dl (3.4-5.0) L 04/09/20 06:22 CARDIAC ENZYMES Creatine Kinase 60 U/L (26-308) 04/08/20 09:53 Troponin I 0.19 ng/ml (0.00-0.05) H 04/08/20 22:50 Current Medications Generic Name Dose Route Start Last Admin Trade Name Freq PRN Reason Stop Dose Admin Apixaban 5 mg 04/09/20 12:00 04/09/20 21:05 Eliquis - PO 5 mg BID WILLIAM Administration Atorvastatin Calcium 80 mg 04/09/20 07:32 04/09/20 21:05 Lipitor - PO 80 mg HS WILLIAM Administration Collagenase 1 applic 04/08/20 17:45 04/09/20 10:41 Santyl - TP 1 applic DAILY WILLIAM Administration Protocol Diltiazem HCl 5 mg 04/08/20 14:57 Cardizem Injection - IVPUSH Q4H PRN TACHYCARDIA Diltiazem HCl 120 mg 04/09/20 10:00 04/09/20 10:40 Cardizem Cd - PO 120 mg DAILY WILLIAM Administration Sodium Chloride 1,000 mls @ 100 mls/hr 04/08/20 14:45 04/09/20 14:26 Normal Saline - IV 100 mls/hr ASDIR WILLIAM Administration Insulin Aspart 1 vial 04/08/20 16:30 04/10/20 06:24 Novolog Vial Sliding Scale - SQ 8 units ACHS WILLIAM Administration Protocol Insulin Detemir 10 units 04/09/20 08:15 04/10/20 06:23 Levemir Vial SQ 10 units BID@0700,2200 WILLIAM Administration Home Medications Medication Instructions Recorded metFORMIN HCL [Glucophage] 1,000 mg PO BID 12/01/13 Glipizide [Glucotrol -] 5 mg PO DAILY 04/09/[address]: negative Renal US: no acute findings ASSESSMENT AND PLAN: This patient is a 54yom with PMHx of hx dm, htn, recent admit for toe osteoM s/p amp and PICC for abx, presented with lightheadedness and new onset AFLUTTER Now reverted to NSR >New onset Atrial flutter with chadsvasc of 3 warrants ac , will start the patient on ELiquis 5mg bid now, s/p heparin, on cardizem ER 120mg now continue, will continue to monitor ,check echo, tsh wnl. >Elevated trops: most likely demand ischemia due to AFL with RVR ; outpatient c ardiology f/u and outpatient stress test for further risk stratification >SCOTT: improved post IVF, 1.7-->1.4 today , trend >HTN: On CArdizem CD continue >HLD: On Lipitor 80mg hs >T2DM: On levemir continue >LLE Diabetic foot ulcer with OsteoM/ulcer: Picc line, completed Ertapenem , ID on the case , on collagenease continue DVT ppx: Eliquis
--- NOTE | 2020-04-10 10:10 | EKG ---
Test Reason : Blood Pressure : / mmHG Vent. Rate : 118 BPM Atrial Rate : 308 BPM P-R Int : 000 ms QRS Dur : 072 ms QT Int : 334 ms P-R-T Axes : 000 043 064 degrees QTc Int : 468 ms ATRIAL FLUTTER WITH VARIABLE A-V BLOCK NONSPECIFIC ST ABNORMALITY ABNORMAL ECG WHEN COMPARED WITH ECG OF 08-APR-2020 08:51, ATRIAL FLUTTER HAS REPLACED ATRIAL FIBRILLATION NONSPECIFIC T WAVE ABNORMALITY NO LONGER EVIDENT IN INFERIOR LEADS Confirmed by Anival Medrano MD ([id number]) on 04/10/2020 10:10:28 AM Referred By: Confirmed By:Anival Medrano MD
[2020-04-10] MEDS: APIXABAN 5 MG TABLET PO SCH (10:28)
[2020-04-10] MEDS: SODIUM CHLORIDE 1,000 ML IV SCH (10:29)
[2020-04-10 11:33] VITALS: BP 133/75; PULSE 89; TEMP 98.5
--- NOTE | 2020-04-10 11:54 | PN ---
Progress Note (short form) - Note Progress Note: cc: lightheadedness s: no chest pain, palps, dizziness, dyspnea Current Medications Generic Name Dose Route Start Last Admin Trade Name Ashleigh PRN Reason Stop Dose Admin Apixaban 5 mg 04/09/20 12:00 04/10/20 10:28 Eliquis - PO 5 mg BID WILLIAM Administration Atorvastatin Calcium 80 mg 04/09/20 07:32 04/09/20 21:05 Lipitor - PO 80 mg HS WILLIAM Administration Collagenase 1 applic 04/08/20 17:45 04/09/20 10:41 Santyl - TP 1 applic DAILY WILLIAM Administration Protocol Diltiazem HCl 5 mg 04/08/20 14:57 Cardizem Injection - IVPUSH Q4H PRN TACHYCARDIA Diltiazem HCl 120 mg 04/09/20 10:00 04/10/20 10:29 Cardizem Cd - PO 120 mg DAILY WILLIAM Administration Sodium Chloride 1,000 mls @ 100 mls/hr 04/08/20 14:45 04/10/20 10:29 Normal Saline - IV 100 mls/hr ASDIR WILLIAM Administration Insulin Aspart 1 vial 04/08/20 16:30 04/10/20 06:24 Novolog Vial Sliding Scale - SQ 8 units ACHS WILLIAM Administration Protocol Insulin Detemir 10 units 04/09/20 08:15 04/10/20 06:23 Levemir Vial SQ 10 units BID@0700,2200 WILLIAM Administration Vital Signs Period Temp Pulse Resp BP Sys/Oliver Pulse Ox Last 24 Hr 97.5 F-98.5 F 78-90 18-18 115-140/62-75 94-99 Constitutional: Yes: No Distress, Calm Cardiovascular: Yes: Regular Rate and Rhythm Respiratory: Yes: CTA Bilaterally Gastrointestinal: Yes: Soft (nt) Edema: No Peripheral Pulses WNL: Yes Neurological: Yes: Alert, Oriented no jaundice, diaphoresis not agitated Laboratory Last Values WBC 6.6 K/mm3 (4.0-10.0) 04/10/20 05:30 RBC 3.83 M/mm3 (4.00-5.60) L 04/10/20 05:30 Hgb 10.8 GM/dL (11.7-16.9) L 04/10/20 05:30 Hct 32.6 % (35.4-49) L 04/10/20 05:30 MCV 85.2 fl (80-96) 04/10/20 05:30 MCH 28.3 pg (25.7-33.7) 04/10/20 05:30 MCHC 33.2 g/dl (32.0-35.9) 04/10/20 05:30 RDW 14.1 % (11.9-15.9) 04/10/20 05:30 Plt Count 259 K/MM3 (134-434) 04/10/20 05:30 MPV 7.5 fl (7.5-11.1) 04/10/20 05:30 Absolute Neuts (auto) 2.8 K/mm3 (1.5-8.0) 04/09/20 06:22 Neutrophils % 43.1 % (42.8-82.8) D 04/09/20 06:22 Lymphocytes % 46.5 % (8-40) H D 04/09/20 06:22 Monocytes % 6.3 % (3.8-10.2) 04/09/20 06:22 Eosinophils % 2.9 % (0-4.5) D 04/09/20 06:22 Basophils % 1.2 % (0-2.0) 04/09/20 06:22 Nucleated RBC % 0 % (0-0) 04/09/20 06:22 PT with INR 12.10 SEC (9.7-13.0) 04/08/20 09:53 INR 0.98 (0.83-1.09) 04/08/20 09:53 PTT (Actin FS) 36.1 SECONDS (25.2-36.5) 04/10/20 05:30 Sodium 137 mmol/L (136-145) 04/09/20 06:22 Potassium 4.5 mmol/L (3.5-5.1) 04/09/20 06:22 Chloride 105 mmol/L (98-107) 04/09/20 06:22 Carbon Dioxide 26 mmol/L (21-32) 04/09/20 06:22 Anion Gap 6 MMOL/L (8-16) L 04/09/20 06:22 BUN 41.5 mg/dL (7-18) H 04/09/20 06:22 Creatinine 1.4 mg/dL (0.55-1.3) H 04/09/20 06:22 Est GFR (CKD-EPI)AfAm 65.09 04/09/20 06:22 Est GFR (CKD-EPI)NonAf 56.16 04/09/20 06:22 POC Glucometer 295 UNITS (80-120) 04/10/20 11:13 Random Glucose 271 mg/dL (74-106) H 04/09/20 06:22 Hemoglobin A1c % 12.4 % (4.2-6.3) H 04/08/20 21:49 Calcium 8.5 mg/dL (8.5-10.1) 04/09/20 06:22 Phosphorus 4.1 mg/dL (2.5-4.9) 04/09/20 06:22 Magnesium 2.3 mg/dL (1.8-2.4) 04/09/20 06:22 Total Bilirubin 0.4 mg/dL (0.2-1) 04/09/20 06:22 AST 11 U/L (15-37) L 04/09/20 06:22 ALT 11 U/L (13-61) L 04/09/20 06:22 Alkaline Phosphatase 105 U/L (45-117) 04/09/20 06:22 Creatine Kinase 60 U/L (26-308) 04/08/20 09:53 Troponin I 0.19 ng/ml (0.00-0.05) H 04/08/20 22:50 Total Protein 5.8 g/dl (6.4-8.2) L 04/09/20 06:22 Albumin 2.4 g/dl (3.4-5.0) L 04/09/20 06:22 Triglycerides 395 mg/dL (0-150) H 04/08/20 16:48 Cholesterol 221 mg/dL (50-200) H 04/08/20 16:48 Total LDL Cholesterol 146 mg/dL (5-100) H 04/08/20 16:48 HDL Cholesterol 28 mg/dL (40-60) L 04/08/20 16:48 TSH 0.98 uIU/ml (0.358-3.74) D 04/10/20 05:30 Urine Color Yellow 04/08/20 16:48 Urine Appearance Cloudy 04/08/20 16:48 Urine pH 5.0 (5.0-8.0) 04/08/20 16:48 Ur Specific Victor 1.017 (1.010-1.035) 04/08/20 16:48 Urine Protein 1+ (NEGATIVE) H 04/08/20 16:48 Urine Glucose (UA) 2+ (NEGATIVE) H 04/08/20 16:48 Urine Ketones Negative (NEGATIVE) 04/08/20 16:48 Urine Blood Negative (NEGATIVE) 04/08/20 16:48 Urine Nitrite Negative (NEGATIVE) 04/08/20 16:48 Urine Bilirubin Negative (NEGATIVE) 04/08/20 16:48 Urine Urobilinogen 0.2 mg/dL (0.2-1.0) 04/08/20 16:48 Ur Leukocyte Esterase Negative (NEGATIVE) 04/08/20 16:48 Urine WBC (Auto) 7 /uL (0-25.8) 04/08/20 16:48 Urine RBC (Auto) 17 /uL (0-23.9) 04/08/20 16:48 Urine Casts (Auto) 4 /uL (0-3.1) 04/08/20 16:48 U Epithel Cells (Auto) 6 /uL (0-25.1) 04/08/20 16:48 Urine Bacteria (Auto) 18 /uL (0-1359) 04/08/20 16:48 Ur Random Creatinine 143.0 mg/dL (30-150) 04/08/20 16:48 Ur Random Sodium < 18 MMOL/L (40-220) L 04/08/20 16:48 Ur Random Potassium 47.0 MMOL/L (25-125) 04/08/20 16:48 Ur Random Chloride < 11 MMOL/L (110-250) L 04/08/20 16:48 Opiates Screen Negative ng/ml (JXQPJG=410) 04/08/20 16:48 Methadone Screen Negative ng/ml (MNEKQQ=142) 04/08/20 16:48 Barbiturate Screen Negative ng/ml (PSELQM=888) 04/08/20 16:48 Phencyclidine Screen Negative ng/ml (CUTOFF=25) 04/08/20 16:48 Ur Amphetamines Screen Negative ng/ml (RXQAGE=453) 04/08/20 16:48 MDMA (Ecstasy) Screen Negative ng/ml (RVDPTL=874) 04/08/20 16:48 Benzodiazepines Screen Negative ng/ml (TIOPMY=025) 04/08/20 16:48 Cocaine Screen Negative ng/ml (EKORDK=575) 04/08/20 16:48 U Marijuana (THC) Screen Negative ng/ml (CUTOFF=50) 04/08/20 16:48 COVID-19 (JOSHUA) Not detected (Not Detected) 04/08/20 14:17 EKG: Image Reviewed Assessment/Plan ecg: aflutter with 4:1 avb, no ischemic changes, nl qtc cxr: clear tele: aflutter, rate controlled, sinus echo 04/2020 nl LV function, LA mildly dilated, trace to mild MR, mild TR a/p: 54 m hx dm, htn, recent admit for toe osteo s/p amp and PICC for abx, here with lightheadedness and new onset AFLUTTER Now reverted to NSR aflutter with rvr: paroxysmal -new diagnosis here -rate improved after iv dilt, cont po dilt for now, monitor on tele - cont cardizem - cont eliquis - echo unremarkable daly: improved -cont ivfs, trend cr elevated trop: -borderline trop elevation, FLAT with normal CK. Not likely acs, more likely due to AFL w/ RVR and demand ischemia in that setting. -Suggest outpatient cardiology f/u and outpatient stress test for further risk stratification htn: -stable, cont dilt for rate control/htn dm: -poor control, dka here, ivfs/insulin per primary team toe osteo: -has picc, on jail abx
[2020-04-10] MEDS: COLLAGENASE CLOSTRIDIUM HIST. 30 GRAMS TUBE TP SCH (14:00)
--- NOTE | 2020-04-10 16:45 | DS ---
Physical Examination Vital Signs: Patient is feeling better, back to NSR, no shest pain or palpitations. Vital Signs Temperature 98.0 F 04/10/20 05:45 Pulse Rate 90 04/10/20 05:45 Respiratory Rate 18 04/10/20 05:45 Blood Pressure 140/63 04/10/20 05:45 O2 Sat by Pulse Oximetry (%) 94 L 04/10/20 05:45 GENERAL: The patient is awake, alert, and oriented, in no acute distress. HEAD: Normal with no signs of trauma. EYES: PERRL, extraocular movements intact, sclera anicteric, conjunctiva clear. ENT: Ears normal, oropharynx clear without exudates, moist mucous membranes. NECK: Trachea midline, full range of motion, supple. LUNGS: Breath sounds equal, clear to auscultation bilaterally, no wheezes, no crackles, no accessory muscle use. HEART: RRR, S1, S2 without murmur, rub or gallop. ABDOMEN: Soft, nontender, nondistended, normoactive bowel sounds, no guarding, no rebound, no hepatosplenomegaly, no masses. EXTREMITIES: 2+ pulses, warm, well-perfused, no edema. amputated 4 digits of left LE, except the big toe, +sutures on the side of the foot NEUROLOGICAL: Cranial nerves II through XII grossly intact. Normal speech, gait not observed. PSYCH: Normal mood, normal affect. SKIN: Warm, dry, normal turgor, no rashes or lesions noted CBCD WBC 6.6 K/mm3 (4.0-10.0) 04/10/20 05:30 RBC 3.83 M/mm3 (4.00-5.60) L 04/10/20 05:30 Hgb 10.8 GM/dL (11.7-16.9) L 04/10/20 05:30 Hct 32.6 % (35.4-49) L 04/10/20 05:30 MCV 85.2 fl (80-96) 04/10/20 05:30 MCHC 33.2 g/dl (32.0-35.9) 04/10/20 05:30 RDW 14.1 % (11.9-15.9) 04/10/20 05:30 Plt Count 259 K/MM3 (134-434) 04/10/20 05:30 MPV 7.5 fl (7.5-11.1) 04/10/20 05:30 CMP Sodium 137 mmol/L (136-145) 04/09/20 06:22 Potassium 4.5 mmol/L (3.5-5.1) 04/09/20 06:22 Chloride 105 mmol/L (98-107) 04/09/20 06:22 Carbon Dioxide 26 mmol/L (21-32) 04/09/20 06:22 Anion Gap 6 MMOL/L (8-16) L 04/09/20 06:22 BUN 41.5 mg/dL (7-18) H 04/09/20 06:22 Creatinine 1.4 mg/dL (0.55-1.3) H 04/09/20 06:22 Random Glucose 271 mg/dL (74-106) H 04/09/20 06:22 Calcium 8.5 mg/dL (8.5-10.1) 04/09/20 06:22 Total Bilirubin 0.4 mg/dL (0.2-1) 04/09/20 06:22 AST 11 U/L (15-37) L 04/09/20 06:22 ALT 11 U/L (13-61) L 04/09/20 06:22 Alkaline Phosphatase 105 U/L (45-117) 04/09/20 06:22 Total Protein 5.8 g/dl (6.4-8.2) L 04/09/20 06:22 Albumin 2.4 g/dl (3.4-5.0) L 04/09/20 06:22 CARDIAC ENZYMES Creatine Kinase 60 U/L (26-308) 04/08/20 09:53 Troponin I 0.19 ng/ml (0.00-0.05) H 04/08/20 22:50 Current Medications Generic Name Dose Route Start Last Admin Trade Name Freq PRN Reason Stop Dose Admin Apixaban 5 mg 04/09/20 12:00 04/09/20 21:05 Eliquis - PO 5 mg BID WILLIAM Administration Atorvastatin Calcium 80 mg 04/09/20 07:32 04/09/20 21:05 Lipitor - PO 80 mg HS WILLIAM Administration Collagenase 1 applic 04/08/20 17:45 04/09/20 10:41 Santyl - TP 1 applic DAILY WILLIAM Administration Protocol Diltiazem HCl 5 mg 04/08/20 14:57 Cardizem Injection - IVPUSH Q4H PRN TACHYCARDIA Diltiazem HCl 120 mg 04/09/20 10:00 04/09/20 10:40 Cardizem Cd - PO 120 mg DAILY WILLIAM Administration Sodium Chloride 1,000 mls @ 100 mls/hr 04/08/20 14:45 04/09/20 14:26 Normal Saline - IV 100 mls/hr ASDIR WILLIAM Administration Insulin Aspart 1 vial 04/08/20 16:30 04/10/20 06:24 Novolog Vial Sliding Scale - SQ 8 units ACHS WILLIAM Administration Protocol Insulin Detemir 10 units 04/09/20 08:15 04/10/20 06:23 Levemir Vial SQ 10 units BID@0700,2200 WILLIAM Administration Home Medications Medication Instructions Recorded metFORMIN HCL [Glucophage] 1,000 mg PO BID 12/01/13 Glipizide [Glucotrol -] 5 mg PO DAILY 04/09/[address]: negative Renal US: no acute findings ASSESSMENT AND PLAN: This patient is a 54yom with PMHx of hx dm, htn, recent admit for toe osteoM s/p amp and PICC for abx, presented with lightheadedness and new onset AFLUTTER Now reverted to NSR >New onset Atrial flutter with chadsvasc of 3 warrants ac , will start the patient on ELiquis 5mg bid now, s/p heparin, on cardizem ER 120mg now continue, will continue to monitor ,echo reviewed , tsh wnl. >Elevated trops: most likely demand ischemia due to AFL with RVR ; outpatient cardiology f/u and outpatient stress test for further risk stratification >SCOTT: improved post IVF, 1.7-->1.4 today , trend >HTN: On CArdizem CD continue >HLD: On Lipitor 80mg hs >T2DM: On levemir incresed the dose to 15U in am since Hgb A1c is 12.6, and reduced the dose of metfornin to 500mg bid and continue home glipizide >LLE Diabetic foot ulcer with OsteoM/ulcer: Picc line, completed Ertapenem , ID on the case , on collagenease continue discussed with ID, no further Abx is needed, will pull the picc line, will dc the patient with f/u with [facility]/Danny endocrine DVT ppx: Eliquis Home Medications Medication Instructions Recorded Glipizide [Glucotrol -] 5 mg PO DAILY 04/09/20 Apixaban [Eliquis -] 5 mg PO BID #60 tablet 04/10/20 Atorvastatin Ca [Lipitor] 80 mg PO HS #30 tablet 04/10/20 Collagenase Clostridium Hist. 1 applic TP DAILY tube 04/10/20 [Santyl -] Diltiazem Cd [Cardizem Cd -] 120 mg PO DAILY #30 cap.cd.24h 04/10/20 Insulin (Levemir) [Levemir Vial] 15 units SQ AM #1 vial 04/10/20 Syrge-Ndl,Ins 0.3 ml Half Dedrick 1 each MC DAILY #30 disp.syrin 04/10/20 [Insulin Syringe] metFORMIN HCL [Metformin HCl] 500 mg PO BID #60 tablet 04/10/20 Labs: CBC, BMP 04/10/20 05:30 04/09/20 06:22 Discharge Summary Problems reviewed: Yes Reason For Visit: NEW ONSET ATRIAL FIBRILLATION Condition: Stable - Instructions Diet, Activity, Other Instructions: Your were admitted for having heart palpitations , we are treating you with Cardizem to slow your heart rate also we are giving blood thinner called ELiquis Please follow up with [facility] Dr Headley fr further work up for your heart. -Follow up with Dr Chance Delgado since your blood sugar is not well controlled to avoid further diabetic complications -Follow up with DR Wade in [facility] for further diabetic foot care -Ophthalmology follow up for your eyes to prevent diabetic complications of your eyes. Medications new: cardizem cd 120mg orally daily Eliquis 5mg 2x per day Metformin reduced the dose to 500mg orally 2x per day levemir 15 units in the morning Any feeling of chest pain or palpitations , please come back to the Hospital Referrals: Shereen Mosquera MD [Staff Physician] - 1 Week Bibiana Headley MD [Staff Physician] - 1 Week Gayathri Richey MD [Primary Care Provider] - Chance Anaya MD [Staff Physician] - 2 Weeks Saul Wade DPM [Staff Physician] - 1 Week Disposition: HOME - Home Medications Comprehensive Discharge Medication List: Ambulatory Orders Glipizide [Glucotrol -] 5 mg PO DAILY 04/09/20 Apixaban [Eliquis -] 5 mg PO BID #60 tablet 04/10/20 Atorvastatin Ca [Lipitor] 80 mg PO HS #30 tablet 04/10/20 Collagenase Clostridium Hist. [Santyl -] 1 applic TP DAILY tube 04/10/20 Diltiazem Cd [Cardizem Cd -] 120 mg PO DAILY #30 cap.cd.24h 04/10/20 Insulin (Levemir) [Levemir Vial] 15 units SQ AM #1 vial 04/10/20 Syrge-Ndl,Ins 0.3 ml Half Dedrick [Insulin Syringe] 1 each MC DAILY #30 disp.syrin 04/10/20 metFORMIN HCL [Metformin HCl] 500 mg PO BID #60 tablet 04/10/20 This patient is new to me today: No Emergency Visit: Yes ED Registration Date: 04/08/20 Care time: The patient presented to the Emergency Department on the above date and was hospitalized for further evaluation of their emergent condition. Critical Care patient: No - Discharge Referral Referred to [facility] Med P.C.: No
== END 2020-04-10 16:14 | disposition home or self-care (01) | DRG 201 ==
LOC: JER 08:13 → JERBED 14:38 → J4S 19:36
PROVIDERS: ATTEND Internal Medicine
DX: I48.92 Unspecified atrial flutter (principal); N17.9 Acute kidney failure, unspecified; I24.8 Other forms of acute ischemic heart disease; E11.65 Type 2 diabetes mellitus with hyperglycemia; E11.621 Type 2 diabetes mellitus with foot ulcer; L97.529 Non-pressure chronic ulcer of other part of left foot with unspecified severity; L03.116 Cellulitis of left lower limb; E11.69 Type 2 diabetes mellitus with other specified complication; M86.8X7 Other osteomyelitis, ankle and foot; R55 Syncope and collapse; Z79.84 Long term (current) use of oral hypoglycemic drugs; I10 Essential (primary) hypertension
CPT/HCPCS: 36415; 70450-TC; 71045-TC-FY; 76775-TC; 80053; 80061; 80307; 81003; 82436; 82550; 82565; 82962; 83036; 83721; 83735; 84100; 84133; 84300; 84443; 84484; 85025; 85027; 85610; 85730; 87086; 93005; 93010; 93306-TC; 97116-GP; 97161-GP; 99291; C9803; J1644; U0003

== ENCOUNTER 2021-03-28 11:57 | Observation (INO) | payer OTHER ==
[2021-03-28 12:29] VITALS: BMI 36.1
[2021-03-28 16:14] LABS: BASO % 0.6 % (0-2.0); EOS % 0.6 % (0-4.5); HEMATOCRIT 36.9 % (35.4-49); HEMOGLOBIN 12.6 GM/dL (11.7-16.9); LYMPH % 27.8 % (8-40); MEAN CELL VOLUME 88.1 fl (80-96); MEAN PLT VOLUME 7.7 fl (7.5-11.1); MONO % 7.9 % (3.8-10.2); NEUT % 63.1 % (42.8-82.8); PLATELET COUNT 263 10^3/uL (134-434); RBC 4.19 M/mm3 (4.00-5.60); RDW 13.8 % (11.9-15.9); WHITE BLOOD COUNT 6.8 K/mm3 (4.0-10.0)
[2021-03-28 16:25] LABS: CHLORIDE 108 mmol/L (98-107); SODIUM 140 mmol/L (136-145)
[2021-03-28 16:27] LABS: CALCIUM 8.7 mg/dL (8.5-10.1)
[2021-03-28 16:28] LABS: ALBUMIN 2.6 g/dl (3.4-5.0); ANION GAP 1 MMOL/L (8-16); CO2 31 mmol/L (21-32); GLUCOSE,RANDOM 280 mg/dL (74-106)
[2021-03-28 16:31] LABS: CREATININE 1.3 mg/dL (0.55-1.3); SGOT/AST 14 U/L (15-37)
[2021-03-28 16:32] LABS: BILIRUBIN,TOTAL 0.4 mg/dL (0.2-1)
[2021-03-28 16:34] LABS: ALK PHOS 101 U/L (45-117)
[2021-03-28 16:36] LABS: N-TERMINAL BNP 349.1 pg/ml (5-125)
[2021-03-28 16:40] LABS: SGPT/ALT 25 U/L (13-61)
[2021-03-28] MEDS ORDERED: ASPIRIN 81 MG CHEWABLE TABLETS PO ONE (17:05)
[2021-03-28] MEDS ORDERED: ASPIRIN 81 MG CHEWABLE TABLETS ONE (17:12)
[2021-03-28] MEDS ORDERED: FUROSEMIDE 40 MG/4 ML INJECTABLE VIAL IVPUSH ONE (18:43)
[2021-03-28] MEDS ORDERED: FUROSEMIDE 40 MG/4 ML INJECTABLE VIAL ONE (19:57)
[2021-03-28] MEDS ORDERED: metoPROLOL SUCCINATE 25 MG TAB.SR.24H (FP) ONE (22:00)
[2021-03-28] MEDS ORDERED: APIXABAN 5 MG TABLET ONE (22:00)
[2021-03-28] MEDS ORDERED: ATORVASTATIN CA 80 MG TABLET (FP) ONE (22:00)
[2021-03-28] MEDS ORDERED: INSULIN SLIDING SCALE (NOVOLOG) 1 VIAL SQ ONE (22:07)
[2021-03-28] MEDS: APIXABAN 5 MG TABLET PO SCH (22:24)
[2021-03-28] MEDS: ATORVASTATIN CA 80 MG TABLET (FP) PO SCH (22:24)
[2021-03-28] MEDS: INSULIN SLIDING SCALE (NOVOLOG) 1 VIAL SQ SCH (22:25)
[2021-03-28] MEDS: metoPROLOL SUCCINATE 25 MG TAB.SR.24H (FP) PO SCH (22:25)
[2021-03-29 07:37] LABS: BLOOD UREA NITROGEN 25.9 mg/dL (7-18); CALCIUM 8.5 mg/dL (8.5-10.1)
[2021-03-29 07:38] LABS: ALBUMIN 2.4 g/dl (3.4-5.0); MAGNESIUM 2.1 mg/dL (1.8-2.4)
[2021-03-29 07:39] LABS: BASO % 0.9 % (0-2.0); EOS % 1.6 % (0-4.5); HEMATOCRIT 34.6 % (35.4-49); HEMOGLOBIN 11.9 GM/dL (11.7-16.9); LYMPH % 31.9 % (8-40); MCH 30.1 pg (25.7-33.7); MCHC 34.4 g/dl (32.0-35.9); MEAN CELL VOLUME 87.6 fl (80-96); MEAN PLT VOLUME 7.6 fl (7.5-11.1); MONO % 8.5 % (3.8-10.2); NEUT % 57.1 % (42.8-82.8); PLATELET COUNT 260 10^3/uL (134-434); RBC 3.95 M/mm3 (4.00-5.60); RDW 13.7 % (11.9-15.9)
[2021-03-29 07:40] LABS: CREATININE 1.4 mg/dL (0.55-1.3); PHOSPHOROUS 3.8 mg/dL (2.5-4.9)
[2021-03-29 07:42] LABS: BILIRUBIN,TOTAL 0.6 mg/dL (0.2-1); TOT PROT 5.5 g/dl (6.4-8.2)
[2021-03-29] MEDS: INSULIN SLIDING SCALE (NOVOLOG) 1 VIAL SQ SCH ×4 (08:50→21:40)
[2021-03-29] MEDS ORDERED: metoPROLOL SUCCINATE 25 MG TAB.SR.24H (FP) ONE ×2 (08:55→21:19)
[2021-03-29] MEDS ORDERED: APIXABAN 5 MG TABLET ONE ×2 (08:55→21:18)
[2021-03-29] MEDS: APIXABAN 5 MG TABLET PO SCH ×2 (09:04→21:39)
[2021-03-29] MEDS: metoPROLOL SUCCINATE 25 MG TAB.SR.24H (FP) PO SCH ×2 (09:04→21:39)
[2021-03-29] MEDS ORDERED: ATORVASTATIN CA 80 MG TABLET (FP) ONE (21:19)
[2021-03-29] MEDS: ATORVASTATIN CA 80 MG TABLET (FP) PO SCH (21:39)
[2021-03-29] MEDS ORDERED: INSULIN (LEVEMIR) 100 UNITS/ML UNITS SQ SCH (22:00)
[2021-03-30] MEDS: INSULIN SLIDING SCALE (NOVOLOG) 1 VIAL SQ SCH ×3 (06:34→16:34)
[2021-03-30 07:19] LABS: EOS % 1.4 % (0-4.5); HEMATOCRIT 32.6 % (35.4-49); HEMOGLOBIN 11.6 GM/dL (11.7-16.9); LYMPH % 32.4 % (8-40); MCH 30.6 pg (25.7-33.7); MCHC 35.4 g/dl (32.0-35.9); MEAN CELL VOLUME 86.3 fl (80-96); MEAN PLT VOLUME 7.3 fl (7.5-11.1); MONO % 7.9 % (3.8-10.2); NEUT % 57.3 % (42.8-82.8); PLATELET COUNT 225 10^3/uL (134-434); RBC 3.78 M/mm3 (4.00-5.60); RDW 13.7 % (11.9-15.9); WHITE BLOOD COUNT 6.1 K/mm3 (4.0-10.0)
[2021-03-30 07:40] LABS: BLOOD UREA NITROGEN 26.5 mg/dL (7-18); CALCIUM 8.1 mg/dL (8.5-10.1)
[2021-03-30 07:41] LABS: ALBUMIN 2.2 g/dl (3.4-5.0)
[2021-03-30 07:44] LABS: CREATININE 1.2 mg/dL (0.55-1.3); PHOSPHOROUS 3.5 mg/dL (2.5-4.9)
[2021-03-30 07:45] LABS: BILIRUBIN,TOTAL 0.4 mg/dL (0.2-1); TOT PROT 5.2 g/dl (6.4-8.2)
[2021-03-30] MEDS: metoPROLOL SUCCINATE 25 MG TAB.SR.24H (FP) PO SCH (10:17)
[2021-03-30] MEDS: APIXABAN 5 MG TABLET PO SCH (10:17)
[2021-03-30 17:03] VITALS: BP 158/90; PULSE 83; TEMP 98.2
== END 2021-03-30 17:51 | disposition home or self-care (01) ==
LOC: JER 11:57 → JERBED 17:06 → INTOOBSV 17:29 → OBSVTOIN 17:29 → J4W 03-29 23:21
PROVIDERS: ADMIT Internal Medicine; ATTEND Internal Medicine
PROC: 3E033GC Introduction of Other Therapeutic Substance into Peripheral Vein, Percutaneous Approach (ICD-10-PCS; principal; 2021-03-28)
PROC: 3E013VG Introduction of Insulin into Subcutaneous Tissue, Percutaneous Approach (ICD-10-PCS; 2021-03-28)
DX: I11.0 Hypertensive heart disease with heart failure (principal); I50.33 Acute on chronic diastolic (congestive) heart failure; E11.9 Type 2 diabetes mellitus without complications; R00.0 Tachycardia, unspecified; I48.0 Paroxysmal atrial fibrillation; R06.02 Shortness of breath; R06.00 Dyspnea, unspecified; I95.9 Hypotension, unspecified; Z79.4 Long term (current) use of insulin; Z79.84 Long term (current) use of oral hypoglycemic drugs; Z79.01 Long term (current) use of anticoagulants
CPT/HCPCS: 36415; 71046-TC-FY; 80053; 82550; 82553; 82962; 83735; 83880; 84100; 84484; 85025; 85379; 93005; 93010; 93306-TC; 93971-TC; 96372; 96374; 99285-25; C9803; G0378; U0003; U0005

== ENCOUNTER 2021-04-16 08:49 | Inpatient (IN) | payer OTHER ==
[2021-04-16] MEDS ORDERED: ASPIRIN 81 MG CHEWABLE TABLETS ONE (09:27)
[2021-04-16] MEDS: SODIUM CHLORIDE 1,000 ML IV SCH (09:28)
[2021-04-16] MEDS: ASPIRIN 81 MG CHEWABLE TABLETS PO SCH (09:35)
[2021-04-16] MEDS ORDERED: ACETAMINOPHEN 1000 MG/100 ML VIAL IVPB ONE (09:36)
[2021-04-16 09:40] LABS: VENOUS BASE EXCESS -4.1 mmol/L (-2-2); VENOUS O2 SATURATION 67.1 % (70-80); VENOUS PCO2 37.4 mmHg (38-52); VENOUS PH 7.362 (7.310-7.410)
[2021-04-16 09:42] LABS: BASO % 0.9 % (0-2.0); EOS % 1.2 % (0-4.5); HEMATOCRIT 37.1 % (35.4-49); HEMOGLOBIN 12.9 GM/dL (11.7-16.9); MCH 30.3 pg (25.7-33.7); MCHC 34.8 g/dl (32.0-35.9); MEAN CELL VOLUME 86.9 fl (80-96); MEAN PLT VOLUME 7.4 fl (7.5-11.1); NEUT % 73.9 % (42.8-82.8); PLATELET COUNT 274 10^3/uL (134-434); RBC 4.27 M/mm3 (4.00-5.60); RDW 13.5 % (11.9-15.9); WHITE BLOOD COUNT 10.1 K/mm3 (4.0-10.0)
[2021-04-16] MEDS ORDERED: ACETAMINOPHEN INJECTION 100 ML IVPB ONE (09:44)
[2021-04-16 09:50] LABS: INR 1.03 (0.83-1.09); PROTHROMBIN TIME (PATIENT) 11.5 SEC (9.7-13.0)
[2021-04-16 09:51] LABS: CHLORIDE 108 mmol/L (98-107); SODIUM 139 mmol/L (136-145)
[2021-04-16 09:53] LABS: ACTIVATED PTT 42.8 SECONDS (25.2-36.5)
[2021-04-16 09:53] LABS: MAGNESIUM 2.2 mg/dL (1.8-2.4)
[2021-04-16 09:54] LABS: ALBUMIN 2.9 g/dl (3.4-5.0); ANION GAP 6 MMOL/L (8-16); BLOOD UREA NITROGEN 25.9 mg/dL (7-18); CALCIUM 8.4 mg/dL (8.5-10.1); CO2 25 mmol/L (21-32); GLUCOSE,RANDOM 130 mg/dL (74-106)
[2021-04-16 09:57] LABS: CHOLESTEROL 233 mg/dL (50-200); CREATININE 1.3 mg/dL (0.55-1.3); SGOT/AST 18 U/L (15-37); SGPT/ALT 26 U/L (13-61)
[2021-04-16 09:58] LABS: TRIGLYCERIDES 150 mg/dL (0-150)
[2021-04-16 09:59] LABS: ALK PHOS 87 U/L (45-117); BILIRUBIN,TOTAL 0.4 mg/dL (0.2-1); TOT PROT 6.4 g/dl (6.4-8.2)
[2021-04-16 10:00] LABS: HDL CHOLESTEROL 43 mg/dL (40-60)
[2021-04-16 10:01] LABS: LDL CHOLESTEROL (ONLY SJRH) 148 mg/dL (5-100)
[2021-04-16] MEDS ORDERED: ACETAMINOPHEN 325 MG TABLET (FP) PO ONE (12:46)
[2021-04-16] MEDS ORDERED: METOCLOPRAMIDE HCL INJECTION 10 MG/2 ML VIAL IVPUSH ONE (12:48)
[2021-04-16] MEDS ORDERED: ACETAMINOPHEN 325 MG TABLET (FP) ONE (12:52)
[2021-04-16] MEDS ORDERED: METOCLOPRAMIDE HCL INJECTION 10 MG/2 ML VIAL ONE (12:52)
[2021-04-17] MEDS ORDERED: metoPROLOL SUCCINATE 25 MG TAB.SR.24H (FP) PO ONE (02:42)
[2021-04-17] MEDS ORDERED: metoPROLOL SUCCINATE 25 MG TAB.SR.24H (FP) ONE ×2 (03:03→11:58)
[2021-04-17 03:18] LABS: EPI CELLS 5 /uL (0-25.1); HYALINE CASTS 2 /uL (0-3.1); PH,URINE 5.5 (5.0-8.0); URINE APPEARANCE CLEAR; URINE BACTERIA 4 /uL (0-1359); URINE BILIRUBIN NEGATIVE (NEGATIVE); URINE COLOR YELLOW; URINE GLUCOSE (UA) 3+ (NEGATIVE); URINE KETONE NEGATIVE (NEGATIVE); URINE LEUK ESTERASE NEGATIVE (NEGATIVE); URINE NITRITE NEGATIVE (NEGATIVE); URINE PROTEIN 3+ (NEGATIVE); URINE RBC 323 /uL (0-23.9); URINE WBC 7 /uL (0-25.8)
[2021-04-17] MEDS: INSULIN SLIDING SCALE (NOVOLOG) 1 VIAL SQ SCH ×3 (06:27→17:32)
[2021-04-17 06:46] LABS: BASO % 1.3 % (0-2.0); EOS % 2.2 % (0-4.5); HEMATOCRIT 33.1 % (35.4-49); HEMOGLOBIN 11.5 GM/dL (11.7-16.9); LYMPH % 33.5 % (8-40); MCH 30.4 pg (25.7-33.7); MCHC 34.8 g/dl (32.0-35.9); MEAN CELL VOLUME 87.4 fl (80-96); MEAN PLT VOLUME 7.5 fl (7.5-11.1); MONO % 8.1 % (3.8-10.2); NEUT % 54.9 % (42.8-82.8); PLATELET COUNT 232 10^3/uL (134-434); RBC 3.79 M/mm3 (4.00-5.60); RDW 13.5 % (11.9-15.9)
[2021-04-17 07:16] LABS: CHLORIDE 112 mmol/L (98-107); SODIUM 141 mmol/L (136-145)
[2021-04-17 07:20] LABS: ANION GAP 2 MMOL/L (8-16); BLOOD UREA NITROGEN 23.2 mg/dL (7-18); CO2 28 mmol/L (21-32); GLUCOSE,RANDOM 189 mg/dL (74-106)
[2021-04-17 07:22] LABS: CALCIUM 7.9 mg/dL (8.5-10.1); MAGNESIUM 2.2 mg/dL (1.8-2.4)
[2021-04-17 07:23] LABS: CREATININE 1.3 mg/dL (0.55-1.3); PHOSPHOROUS 3.2 mg/dL (2.5-4.9)
[2021-04-17 10:32] LABS: ERYTHROCYTE SEDIMENTATION RATE 36 mm/hr (0-20)
[2021-04-17] MEDS ORDERED: APIXABAN 5 MG TABLET ONE (11:57)
[2021-04-17] MEDS ORDERED: ASPIRIN 81 MG CHEWABLE TABLETS ONE (11:57)
[2021-04-17] MEDS ORDERED: LISINOPRIL 20 MG TABLET ONE (11:58)
[2021-04-17] MEDS ORDERED: FAMOTIDINE 20 MG TABLET ONE (11:58)
[2021-04-17] MEDS: SODIUM CHLORIDE 1,000 ML IV SCH (12:11)
[2021-04-17] MEDS: LISINOPRIL 20 MG TABLET PO SCH (12:12)
[2021-04-17] MEDS: metoPROLOL SUCCINATE 25 MG TAB.SR.24H (FP) PO SCH ×2 (12:12→21:47)
[2021-04-17] MEDS: APIXABAN 5 MG TABLET PO SCH ×2 (12:12→21:46)
[2021-04-17] MEDS: ASPIRIN 81 MG CHEWABLE TABLETS PO SCH (12:12)
[2021-04-17] MEDS: FAMOTIDINE 20 MG TABLET PO SCH ×2 (12:12→21:47)
[2021-04-17 18:22] VITALS: BMI 36.3
[2021-04-17] MEDS ORDERED: ATORVASTATIN CA 80 MG TABLET (FP) PO SCH (22:00)
[2021-04-17] MEDS ORDERED: INSULIN (LEVEMIR) 100 UNITS/ML UNITS SQ SCH (22:00)
[2021-04-18] MEDS: INSULIN SLIDING SCALE (NOVOLOG) 1 VIAL SQ SCH ×4 (00:21→17:12)
[2021-04-18 06:31] VITALS: TEMP 99.2
[2021-04-18 09:59] LABS: BASO % 2.1 % (0-2.0); EOS % 2.1 % (0-4.5); HEMATOCRIT 34.9 % (35.4-49); LYMPH % 33.5 % (8-40); MCH 30.1 pg (25.7-33.7); MCHC 34.4 g/dl (32.0-35.9); MEAN CELL VOLUME 87.6 fl (80-96); MEAN PLT VOLUME 7.4 fl (7.5-11.1); MONO % 7.2 % (3.8-10.2); NEUT % 55.1 % (42.8-82.8); PLATELET COUNT 237 10^3/uL (134-434); RBC 3.99 M/mm3 (4.00-5.60); RDW 13.6 % (11.9-15.9); WHITE BLOOD COUNT 6.1 K/mm3 (4.0-10.0)
[2021-04-18] MEDS: ASPIRIN 81 MG CHEWABLE TABLETS PO SCH (10:08)
[2021-04-18] MEDS: metoPROLOL SUCCINATE 25 MG TAB.SR.24H (FP) PO SCH (10:08)
[2021-04-18] MEDS: FAMOTIDINE 20 MG TABLET PO SCH (10:08)
[2021-04-18] MEDS: APIXABAN 5 MG TABLET PO SCH (10:08)
[2021-04-18] MEDS: LISINOPRIL 20 MG TABLET PO SCH (10:08)
[2021-04-18 10:28] LABS: BLOOD UREA NITROGEN 22.1 mg/dL (7-18); CALCIUM 8.2 mg/dL (8.5-10.1); MAGNESIUM 2.3 mg/dL (1.8-2.4)
[2021-04-18 10:32] LABS: CREATININE 1.2 mg/dL (0.55-1.3); PHOSPHOROUS 3.2 mg/dL (2.5-4.9)
[2021-04-18 10:33] LABS: ALBUMIN 2.2 g/dl (3.4-5.0); BILIRUBIN,TOTAL 0.6 mg/dL (0.2-1)
[2021-04-18] MEDS ORDERED: CARVEDILOL 6.25 MG TABLET (FP) PO SCH (14:00)
[2021-04-18 16:41] VITALS: BP 155/88; PULSE 84
== END 2021-04-18 17:10 | disposition home or self-care (01) | DRG 199 ==
LOC: JER 08:49 → JERBED 10:25 → J2W 04-17 16:15
PROVIDERS: ADMIT Internal Medicine; ATTEND Internal Medicine
DX: I16.1 Hypertensive emergency (principal); I10 Essential (primary) hypertension; I67.4 Hypertensive encephalopathy; I48.92 Unspecified atrial flutter; R47.01 Aphasia; E11.9 Type 2 diabetes mellitus without complications; E78.5 Hyperlipidemia, unspecified; R47.1 Dysarthria and anarthria; E66.9 Obesity, unspecified; Z68.36 Body mass index [BMI] 36.0-36.9, adult
CPT/HCPCS: 36415; 70450-TC; 70551-TC; 80048; 80053; 80061; 80307; 81003; 82550; 82553; 82803; 82962; 83036; 83735; 83880; 84100; 84443; 84484; 85025; 85610; 85651; 85730; 86140; 86850; 86900; 86901; 93005; 93010; 93306-TC; 93880-TC; 97116-GP; 97162-GP; 99285-25; C9803; J0131; U0003; U0005

== ENCOUNTER 2021-05-21 18:23 | Observation (INO) | payer OTHER ==
[2021-05-21 18:44] VITALS: BMI 31.5
[2021-05-21 20:04] LABS: EOS % 0.9 % (0-4.5); HEMATOCRIT 35.9 % (35.4-49); HEMOGLOBIN 12.8 GM/dL (11.7-16.9); LYMPH % 23.9 % (8-40); MCH 30.1 pg (25.7-33.7); MCHC 35.8 g/dl (32.0-35.9); MEAN CELL VOLUME 84.1 fl (80-96); MEAN PLT VOLUME 6.8 fl (7.5-11.1); MONO % 8.9 % (3.8-10.2); NEUT % 65.3 % (42.8-82.8); PLATELET COUNT 339 10^3/uL (134-434); RBC 4.26 M/mm3 (4.00-5.60); RDW 13.3 % (11.9-15.9); WHITE BLOOD COUNT 7.6 K/mm3 (4.0-10.0)
[2021-05-21 20:13] LABS: PROTHROMBIN TIME (PATIENT) 11.7 SEC (9.7-13.0)
[2021-05-21 20:15] LABS: CHLORIDE 101 mmol/L (98-107); SODIUM 135 mmol/L (136-145)
[2021-05-21 20:16] LABS: ACTIVATED PTT 33.4 SECONDS (25.2-36.5)
[2021-05-21 20:18] LABS: ALBUMIN 2.8 g/dl (3.4-5.0); CALCIUM 9.2 mg/dL (8.5-10.1)
[2021-05-21 20:19] LABS: ANION GAP 4 MMOL/L (8-16); BLOOD UREA NITROGEN 24.8 mg/dL (7-18); CO2 30 mmol/L (21-32); GLUCOSE,RANDOM 343 mg/dL (74-106)
[2021-05-21 20:21] LABS: SGPT/ALT 29 U/L (13-61)
[2021-05-21 20:22] LABS: CHOLESTEROL 230 mg/dL (50-200); CREATININE 1.4 mg/dL (0.55-1.3); SGOT/AST 17 U/L (15-37); TRIGLYCERIDES 293 mg/dL (0-150)
[2021-05-21 20:23] LABS: BILIRUBIN,TOTAL 0.5 mg/dL (0.2-1); LDL CHOLESTEROL (ONLY SJRH) 134 mg/dL (5-100); TOT PROT 6.5 g/dl (6.4-8.2)
[2021-05-21 20:24] LABS: ALK PHOS 105 U/L (45-117); HDL CHOLESTEROL 39 mg/dL (40-60)
[2021-05-22 08:55] LABS: BASO % 0.5 % (0-2.0); EOS % 0.1 % (0-4.5); HEMATOCRIT 31.5 % (35.4-49); HEMOGLOBIN 11.3 GM/dL (11.7-16.9); LYMPH % 20.1 % (8-40); MCH 30.2 pg (25.7-33.7); MCHC 35.8 g/dl (32.0-35.9); MEAN CELL VOLUME 84.2 fl (80-96); MEAN PLT VOLUME 6.8 fl (7.5-11.1); MONO % 7.5 % (3.8-10.2); NEUT % 71.8 % (42.8-82.8); PLATELET COUNT 312 10^3/uL (134-434); RBC 3.74 M/mm3 (4.00-5.60); RDW 13.4 % (11.9-15.9); WHITE BLOOD COUNT 8.1 K/mm3 (4.0-10.0)
[2021-05-22 09:06] LABS: INR 1.19 (0.83-1.09); PROTHROMBIN TIME (PATIENT) 13.3 SEC (9.7-13.0)
[2021-05-22 09:10] LABS: CALCIUM 8.2 mg/dL (8.5-10.1)
[2021-05-22 09:11] LABS: ALBUMIN 2.2 g/dl (3.4-5.0); BLOOD UREA NITROGEN 24.5 mg/dL (7-18); MAGNESIUM 1.8 mg/dL (1.8-2.4)
[2021-05-22 09:14] LABS: CREATININE 1.4 mg/dL (0.55-1.3); PHOSPHOROUS 3.4 mg/dL (2.5-4.9)
[2021-05-22 09:15] LABS: BILIRUBIN,TOTAL 0.5 mg/dL (0.2-1); TOT PROT 5.7 g/dl (6.4-8.2)
[2021-05-23 07:12] LABS: BASO % 1.2 % (0-2.0); EOS % 1.7 % (0-4.5); HEMATOCRIT 33.2 % (35.4-49); HEMOGLOBIN 11.5 GM/dL (11.7-16.9); LYMPH % 30.7 % (8-40); MCH 29.9 pg (25.7-33.7); MCHC 34.8 g/dl (32.0-35.9); MEAN CELL VOLUME 85.9 fl (80-96); MEAN PLT VOLUME 7.1 fl (7.5-11.1); NEUT % 57.4 % (42.8-82.8); PLATELET COUNT 303 10^3/uL (134-434); RBC 3.86 M/mm3 (4.00-5.60); RDW 13.5 % (11.9-15.9); WHITE BLOOD COUNT 6.8 K/mm3 (4.0-10.0)
[2021-05-23 07:32] LABS: BLOOD UREA NITROGEN 27.6 mg/dL (7-18); CALCIUM 8.4 mg/dL (8.5-10.1)
[2021-05-23 07:35] LABS: N-TERMINAL BNP 405.8 pg/ml (5-125)
[2021-05-23 08:07] LABS: CREATININE 1.4 mg/dL (0.55-1.3)
[2021-05-24 08:33] LABS: OPIATES, URI NEGATIVE (NEGATIVE); URINE BARBITURATES NEGATIVE (NEGATIVE)
[2021-05-24 08:34] LABS: PHENCYCLIDINE,URINE NEGATIVE (NEGATIVE)
[2021-05-24 08:38] LABS: COCAINE, UR NEGATIVE (NEGATIVE); METHADONE, UR NEGATIVE (NEGATIVE); URINE AMPHETAMINES NEGATIVE (NEGATIVE); URINE BENZODIAZEPINES NEGATIVE (NEGATIVE)
[2021-05-24 14:53] VITALS: PULSE 116; TEMP 97.5
[2021-05-24 15:40] VITALS: BP 156/85
== END 2021-05-24 17:16 | disposition home or self-care (01) ==
LOC: JER 18:23 → JERBED 05-22 00:32 → INTOOBSV 05-22 00:32 → UNDOADMOB 05-22 00:32 → JERBED 05-22 16:27 → J4W 05-22 16:27 → UNDOADMOB 05-23 14:21 → OBSVTOIN 05-23 14:21 → INTOOBSV 05-23 14:21 → JERBED 05-23 14:21
PROVIDERS: ADMIT Internal Medicine Pulmonary Disease; ATTEND Internal Medicine
PROC: 3E013GC Introduction of Other Therapeutic Substance into Subcutaneous Tissue, Percutaneous Approach (ICD-10-PCS; principal; 2021-05-23)
DX: R47.01 Aphasia (principal); R41.0 Disorientation, unspecified; E11.22 Type 2 diabetes mellitus with diabetic chronic kidney disease; I13.0 Hypertensive heart and chronic kidney disease with heart failure and stage 1 through stage 4 chronic kidney disease, or unspecified chronic kidney disease; N18.9 Chronic kidney disease, unspecified; I50.43 Acute on chronic combined systolic (congestive) and diastolic (congestive) heart failure; N17.9 Acute kidney failure, unspecified; Z79.4 Long term (current) use of insulin; I48.91 Unspecified atrial fibrillation; I48.92 Unspecified atrial flutter; E78.5 Hyperlipidemia, unspecified; R79.89 Other specified abnormal findings of blood chemistry; E66.9 Obesity, unspecified; Z68.31 Body mass index [BMI] 31.0-31.9, adult; Z89.422 Acquired absence of other left toe(s); Z79.01 Long term (current) use of anticoagulants
CPT/HCPCS: 36415; 70450-TC; 70551-TC; 71045-TC-FY; 80048; 80053; 80061; 80307; 82550; 82553; 82962; 83036; 83735; 83880; 84100; 84436; 84443; 84478; 84484; 85025; 85610; 85730; 86850; 86900; 86901; 93005; 93010; 93880-TC; 96372; 97116-GP; 97161-GP; 99291; C9803; G0378; U0003; U0005

== ENCOUNTER 2021-09-29 20:28 | Emergency (ER) | payer OTHER ==
[2021-09-29 20:33] VITALS: TEMP 97.9; BMI 35.2
[2021-09-29] MEDS ORDERED: DEXAMETHASONE SOD PHOSPHATE 10 MG/1 ML VIAL IVPUSH ONE (22:03)
[2021-09-29] MEDS ORDERED: DEXAMETHASONE SOD PHOSPHATE 10 MG/1 ML VIAL ONE (22:13)
[2021-09-29 22:52] LABS: BASO % 0.2 % (0-2.0); HEMATOCRIT 31.7 % (35.4-49); HEMOGLOBIN 10.8 GM/dL (11.7-16.9); LYMPH % 9.7 % (8-40); MCH 29.8 pg (25.7-33.7); MCHC 34.2 g/dl (32.0-35.9); MEAN PLT VOLUME 7.4 fl (7.5-11.1); NEUT % 82.1 % (42.8-82.8); PLATELET COUNT 241 10^3/uL (134-434); RBC 3.64 M/mm3 (4.00-5.60); RDW 13.9 % (11.9-15.9); WHITE BLOOD COUNT 11.8 K/mm3 (4.0-10.0)
[2021-09-29 23:15] LABS: ALBUMIN 2.8 g/dl (3.4-5.0); BLOOD UREA NITROGEN 36.4 mg/dL (7-18); CALCIUM 8.5 mg/dL (8.5-10.1)
[2021-09-29 23:21] LABS: BILIRUBIN,TOTAL 0.8 mg/dL (0.2-1); TOT PROT 6.1 g/dl (6.4-8.2)
[2021-09-29] MEDS ORDERED: SODIUM CHLORIDE 0.9% 500 ML INFUS.BAG IV ONE (23:24)
[2021-09-30] MEDS ORDERED: SODIUM CHLORIDE 0.9% 500 ML INFUS.BAG IV ONE (01:30)
[2021-09-30] MEDS ORDERED: SODIUM CHLORIDE 1,000 ML IV SCH (02:45)
[2021-09-30] MEDS ORDERED: CLINDAMYCIN 600MG PREMIX IVPB 600 MG/50 ML BAG IVPB ONE ×2 (03:03→03:14)
[2021-09-30] MEDS ORDERED: IBUPROFEN 100 MG/5 ML UNIT DOSE CUPS PO ONE (03:17)
[2021-09-30] MEDS ORDERED: ACETAMINOPHEN 650 MG/20.3 ML ORAL SOLUTION (CUPS) PO ONE (03:17)
[2021-09-30] MEDS ORDERED: IBUPROFEN 100 MG/5 ML UNIT DOSE CUPS ONE (03:49)
[2021-09-30] MEDS ORDERED: ACETAMINOPHEN 160 MG/5 ML 473ML BULK BOTTLE ONE (03:49)
[2021-09-30 06:03] VITALS: BP 139/85; PULSE 94
== END 2021-09-30 06:08 | disposition short-term general hospital (02) ==
LOC: JER 20:28
PROC: 3E033GC Introduction of Other Therapeutic Substance into Peripheral Vein, Percutaneous Approach (ICD-10-PCS; principal; 2021-09-29)
DX: J36 Peritonsillar abscess (principal)
CPT/HCPCS: 36415; 70490-TC; 70491-TC; 80053; 85025; 99285-25; J1100

== ENCOUNTER 2022-05-06 15:34 | Emergency (ER) | payer OTHER ==
[2022-05-06 16:16] VITALS: BP 146/90; PULSE 97; RESP 18; TEMP 98.8; BMI 38.4
[2022-05-06] MEDS ORDERED: SODIUM CHLORIDE 1,000 ML IV STA (17:16)
[2022-05-06 17:42] LABS: EOS % 2.1 % (0-4.5); HEMATOCRIT 37.1 % (35.4-49); HEMOGLOBIN 12.2 GM/dL (11.7-16.9); LYMPH % 27.2 % (8-40); MCH 28.6 pg (25.7-33.7); MEAN CELL VOLUME 86.7 fl (80-96); MEAN PLT VOLUME 7.6 fl (7.5-11.1); MONO % 8.3 % (3.8-10.2); NEUT % 61.4 % (42.8-82.8); PLATELET COUNT 302 10^3/uL (134-434); RBC 4.28 M/mm3 (4.00-5.60); RDW 13.5 % (11.9-15.9)
[2022-05-06 17:49] LABS: PROTHROMBIN TIME (PATIENT) 11.5 SEC (9.7-13.0)
[2022-05-06 17:52] LABS: ACTIVATED PTT 33.8 SECONDS (25.2-36.5)
[2022-05-06 18:09] LABS: ALBUMIN 2.5 g/dl (3.4-5.0); BLOOD UREA NITROGEN 36.5 mg/dL (7-18); CALCIUM 8.6 mg/dL (8.5-10.1); MAGNESIUM 2.2 mg/dL (1.8-2.4)
[2022-05-06 18:12] LABS: CREATININE 2.1 mg/dL (0.55-1.3); PHOSPHOROUS 3.8 mg/dL (2.5-4.9)
[2022-05-06 18:14] LABS: BILIRUBIN,TOTAL 0.4 mg/dL (0.2-1); TOT PROT 5.7 g/dl (6.4-8.2)
[2022-05-06 19:30] LABS: EPI CELLS 24 /uL (0-25.1); HYALINE CASTS 6 /uL (0-3.1); PH,URINE 5.5 (5.0-8.0); URINE APPEARANCE CLEAR; URINE BACTERIA 5 /uL (0-1359); URINE BILIRUBIN NEGATIVE (NEGATIVE); URINE COLOR YELLOW; URINE GLUCOSE (UA) 2+ (NEGATIVE); URINE KETONE NEGATIVE (NEGATIVE); URINE LEUK ESTERASE NEGATIVE (NEGATIVE); URINE NITRITE NEGATIVE (NEGATIVE); URINE PROTEIN 4+ (NEGATIVE); URINE UROBILINOGEN 0.2 mg/dL (0.2-1.0); URINE WBC 15 /uL (0-25.8)
== END 2022-05-06 22:08 | disposition home or self-care (01) ==
LOC: JER 15:34
PROC: 3E0337Z Introduction of Electrolytic and Water Balance Substance into Peripheral Vein, Percutaneous Approach (ICD-10-PCS; principal; 2022-05-06)
DX: U07.1 COVID-19 (principal); R00.2 Palpitations
CPT/HCPCS: 0241U-QW; 36415; 71045-TC-FY; 80053; 81003; 83735; 84100; 84484; 85025; 85610; 85730; 87086; 93005; 93010; 99285-25

== ENCOUNTER 2024-06-18 12:37 | Observation (INO) | payer OTHER ==
[2024-06-18] MEDS: SODIUM CHLORIDE 1,000 ML IV SCH (13:49)
[2024-06-18 14:09] LABS: PH,URINE 5.5 (5.0-8.0); URINE APPEARANCE CLEAR; URINE BILIRUBIN NEGATIVE (NEGATIVE); URINE COLOR YELLOW; URINE GLUCOSE (UA) 3+ (NEGATIVE); URINE KETONE NEGATIVE (NEGATIVE); URINE LEUK ESTERASE NEGATIVE (NEGATIVE); URINE NITRITE NEGATIVE (NEGATIVE); URINE PROTEIN 3+ (NEGATIVE)
[2024-06-18 14:34] LABS: POTASSIUM 3.9 mmol/L (3.5-5.1)
[2024-06-18 14:35] LABS: CALCIUM 8.8 mg/dL (8.5-10.1)
[2024-06-18 14:37] LABS: ALBUMIN 3.2 g/dl (3.4-5.0); BLOOD UREA NITROGEN 41.5 mg/dL (7-18)
[2024-06-18 14:40] LABS: BASO % 0.7 % (0-2.0); CREATININE 3.1 mg/dL (0.55-1.3); EOS % 0.5 % (0-4.5); HEMATOCRIT 43.1 % (35.4-49); HEMOGLOBIN 14.9 GM/dL (11.7-16.9); LYMPH % 22.2 % (8-40); MCH 30.1 pg (25.7-33.7); MCHC 34.5 g/dl (32.0-35.9); MEAN CELL VOLUME 87.4 fl (80-96); MEAN PLT VOLUME 7.3 fl (7.5-11.1); MONO % 5.2 % (3.8-10.2); NEUT % 71.4 % (42.8-82.8); PLATELET COUNT 307 10^3/uL (134-434); RBC 4.93 M/mm3 (4.00-5.60); RDW 14.2 % (11.9-15.9); WHITE BLOOD COUNT 7.9 K/mm3 (4.0-10.0)
[2024-06-18 14:41] LABS: BILIRUBIN,TOTAL 0.5 mg/dL (0.2-1); TOT PROT 6.6 g/dl (6.4-8.2)
[2024-06-18 14:50] LABS: EPI CELLS 3.8 /uL (0-25.1); HYALINE CASTS 1.23 /uL (0-3.1); URINE BACTERIA 0.9 /uL (0-1359); URINE RBC 22.7 /uL (0-23.9); URINE WBC 8.3 /uL (0-25.8)
[2024-06-18 18:26] VITALS: RESP 18
[2024-06-18] MEDS: HEPARIN NA (PORCINE) 5,000 UNITS/ML 1ML VIAL SQ SCH (21:17)
[2024-06-18] MEDS: ATORVASTATIN CA 20 MG TABLET (FP) PO SCH (21:18)
[2024-06-18] MEDS: INSULIN ASPART SLIDING SCALE (NOVOLOG) 1 VIAL SQ SCH (21:18)
[2024-06-18] MEDS: LACTATED RINGERS SOLUTION 1,000 ML/1,000 ML INFUS.BAG IV SCH (21:34)
[2024-06-19 03:27] VITALS: TEMP 97.7
[2024-06-19 08:50] LABS: HEMATOCRIT 41.8 % (35.4-49); HEMOGLOBIN 13.7 GM/dL (11.7-16.9); MCH 29.1 pg (25.7-33.7); MCHC 32.8 g/dl (32.0-35.9); MEAN CELL VOLUME 88.6 fl (80-96); MEAN PLT VOLUME 7.2 fl (7.5-11.1); PLATELET COUNT 278 10^3/uL (134-434); RBC 4.72 M/mm3 (4.00-5.60); WHITE BLOOD COUNT 7.6 K/mm3 (4.0-10.0)
[2024-06-19 09:15] LABS: POTASSIUM 3.9 mmol/L (3.5-5.1)
[2024-06-19 09:45] LABS: ALBUMIN 2.9 g/dl (3.4-5.0); BLOOD UREA NITROGEN 43.2 mg/dL (7-18); CALCIUM 8.7 mg/dL (8.5-10.1); MAGNESIUM 2.3 mg/dL (1.8-2.4)
[2024-06-19 09:48] LABS: PHOSPHOROUS 3.6 mg/dL (2.5-4.9)
[2024-06-19 09:50] LABS: CREATININE 2.7 mg/dL (0.55-1.3); TOT PROT 5.8 g/dl (6.4-8.2)
[2024-06-19 12:35] VITALS: BP 127/79; PULSE 97
[2024-06-19 18:02] VITALS: BMI 32.1
== END 2024-06-19 17:20 | disposition home or self-care (01) ==
LOC: JER 12:37 → JERBED 16:12 → UNDOADMOB 16:12 → INTOOBSV 16:12 → JERBED 16:26 → J6S 18:09
PROVIDERS: ADMIT Internal Medicine; ATTEND Internal Medicine
PROC: 3E013VG Introduction of Insulin into Subcutaneous Tissue, Percutaneous Approach (ICD-10-PCS; principal; 2024-06-18)
PROC: 3E023GC Introduction of Other Therapeutic Substance into Muscle, Percutaneous Approach (ICD-10-PCS; 2024-06-18)
DX: N17.9 Acute kidney failure, unspecified (principal); N18.9 Chronic kidney disease, unspecified; E11.22 Type 2 diabetes mellitus with diabetic chronic kidney disease; N40.0 Benign prostatic hyperplasia without lower urinary tract symptoms; E78.5 Hyperlipidemia, unspecified; R53.1 Weakness; R63.0 Anorexia; R63.4 Abnormal weight loss; Z29.89 Encounter for other specified prophylactic measures; R79.89 Other specified abnormal findings of blood chemistry; M86.9 Osteomyelitis, unspecified; M54.50 Low back pain, unspecified; I48.91 Unspecified atrial fibrillation
CPT/HCPCS: 0241U-QW; 36415; 71046-TC-FY; 76775-TC; 80053; 81003; 82962; 83735; 84100; 84443; 84484; 85025; 85027; 87040; 87086; 93005; 93010; 96372; 99285-25; G0378; J1644